=== PATIENT | male | born 1980 ===

== ENCOUNTER 2020-10-07 10:20 | Outpatient (REF) | payer OTHER, SELFPAY ==
[2020-10-07 13:47] LABS: MANUAL DIFF FLAG NO
[2020-10-07 13:52] LABS: Basophils Absolute Auto 0.1 X10*3/uL (0.0-0.2); Basophils Percent Auto 0.5 % (0-2); Eosinophils Absolute Auto 0.1 X10*3/uL (0.0-0.4); Eosinophils Percent Auto 1.3 % (0-4); Hematocrit 42.8 % (42-52); Hemoglobin 14.1 g/dl (14.0-18.0); Imm Gran Abs Auto 0.02 X10*3/uL (0.00-0.03); Imm Gran Pct Auto 0.2 % (0.0-0.4); Lymphocytes Absolute Auto 2.4 X10*3/uL (1.2-4.9); Lymphocytes Percent Auto 24.2 % (20-40); Mean Corpuscular HGB Conc 32.9 g/dl (31.0-36.0); Mean Corpuscular Hemoglobin 31.1 pg (27.0-33.0); Mean Corpuscular Volume 94.3 fL (80-98); Mean Platelet Volume 12.4 fL (9.4-12.4); Monocytes Absolute Auto 0.8 X10*3/uL (0.1-1.2); Monocytes Percent Auto 7.7 % (2-11); Neutrophils Absolute Auto 6.6 X10*3/uL (2.0-8.3); Neutrophils Percent Auto 66.1 % (45-73); Platelet Count 233 X10*3/uL (160-400); Red Blood Count 4.54 X10*6/uL (4.60-5.80)
[2020-10-07 14:01] LABS: Estimated Average Glucose 94 mg/dL; Hemoglobin A1c % 4.9 %
[2020-10-07 14:08] LABS: Glucose Urine UA NEG (NEG); Leukocyte Esterase Urine NEG (NEG); Nitrite Urine NEG (NEG); PH 6.5 (5.0-8.0); Specific Gravity - Urine 1.025 (1.005-1.025); Urine Blood TRACE (NEG); Urine Ketones NEG (NEG); Urine Protein NEG (NEG-TRACE)
[2020-10-07 14:15] LABS: Appearance Urine CLEAR; Color Urine YELLOW
[2020-10-07 14:19] LABS: Alanine Aminotransferase 27 U/L (0-40); Albumin Level 4.2 g/dL (3.5-5.0); Alkaline Phosphatase 77 U/L (39-117); Anion Gap 11 (12-20); Aspartate Amino Transferase 21 U/L (5-37); Bilirubin Total 0.6 mg/dL (0.0-1.0); Blood Urea Nitrogen 18 mg/dL (9-16); Calcium 8.8 mg/dL (8.4-10.2); Carbon Dioxide 29 mmol/L (22-29); Chloride 102 mmol/L (96-108); Cholesterol 263 mg/dL; Estimated Glomerular Filt Rate > 60; Glucose Random 88 mg/dL (60-115); HDL Cholesterol 33 mg/dL; LDL Cholesterol Calculated 206 mg/dl; Potassium 4.3 mmol/L (3.3-5.1); Sodium 138 mmol/L (135-145); Total Protein 7.2 g/dL (6.5-8.0); Triglycerides 124 mg/dL
[2020-10-07 14:39] LABS: Mucus Urine TRACE /LPF; RBC Urine 0-2 /HPF (0); Squamous Epithelial Cell Urine TRACE /LPF; WBC Urine 0-2 /HPF (0-4)
[2020-10-07 14:40] LABS: Free T4 (Free Thyroxine) 1.29 ng/dL (0.71-1.85); Thyroid Stimulating Hormone 0.69 uIU/mL (0.32-4.0)
[2020-10-07 14:53] LABS: Vitamin B12 427 pg/mL (200-900)
== END 2020-10-07 10:21 | disposition home or self-care (01) ==
LOC: HO.10HDL 10:20
PROVIDERS: Visit Provider Internal Medicine
DX: R73.01 Impaired fasting glucose (principal); E78.00 Pure hypercholesterolemia, unspecified
CPT/HCPCS: 36415; 80053; 80061; 81001; 82607; 82746; 83036; 84439; 84443; 85025

== ENCOUNTER 2020-12-15 10:53 | Outpatient (REF) | payer OTHER, SELFPAY ==
[2020-12-15 13:47] LABS: Alanine Aminotransferase 31 U/L (0-40); Albumin Level 4.3 g/dL (3.5-5.0); Alkaline Phosphatase 85 U/L (39-117); Anion Gap 11 (12-20); Aspartate Amino Transferase 24 U/L (5-37); Bilirubin Total 0.5 mg/dL (0.0-1.0); Blood Urea Nitrogen 16 mg/dL (9-16); Calcium 9.4 mg/dL (8.4-10.2); Carbon Dioxide 29 mmol/L (22-29); Chloride 103 mmol/L (96-108); Cholesterol 189 mg/dL; Estimated Glomerular Filt Rate > 60; Glucose Random 82 mg/dL (60-115); HDL Cholesterol 38 mg/dL; LDL Cholesterol Calculated 137 mg/dl; Potassium 4.7 mmol/L (3.3-5.1); Sodium 138 mmol/L (135-145); Total Protein 7.4 g/dL (6.5-8.0); Triglycerides 73 mg/dL
== END 2020-12-15 10:54 | disposition home or self-care (01) ==
LOC: HO.10HDL 10:53
PROVIDERS: Visit Provider Internal Medicine
DX: E78.00 Pure hypercholesterolemia, unspecified (principal)
CPT/HCPCS: 36415; 80053; 80061

== ENCOUNTER 2021-01-13 22:15 | Emergency (ER) | payer OTHER, SELFPAY ==
[2021-01-13 22:22] VITALS: BP 121/73; PULSE 91; RESP 18; TEMP 36.6; O2SAT 95; BMI 19.3
[2021-01-13 22:56] LABS: Glucose, Whole Blood 104 mg/dL (60-115)
[2021-01-13 23:12] LABS: Glucose Urine UA NEG (NEG); Leukocyte Esterase Urine NEG (NEG); Nitrite Urine NEG (NEG); Specific Gravity - Urine >= 1.030 (1.005-1.025); Urine Blood NEG (NEG); Urine Ketones NEG (NEG); Urine Protein 1+ MG/DL (NEG-TRACE)
[2021-01-13 23:14] LABS: Appearance Urine CLEAR; Color Urine DARK YELLOW
[2021-01-13 23:19] LABS: Bacteria Urine TRACE /LPF; Mucus Urine 2+ /LPF; Squamous Epithelial Cell Urine TRACE /LPF; WBC Urine 0-2 /HPF (0-4)
[2021-01-13 23:24] LABS: COVID-19 Test Negative (Negative)
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
[2021-01-14 00:04] LABS: Amphetamine Screen Urine Not Detected (Not Detect); Barbiturates, Urine Not Detected (Not Detect); Benzodiazepines Screen Urine Not Detected (Not Detect); Cannabinoid Screen Urine POSITIVE (Not Detect); Cocaine Screen Urine Not Detected (Not Detect); Opiate Screen Urine Not Detected (Not Detect); Phencyclidine Screen Urine Not Detected (Not Detect)
[2021-01-14 01:28] VITALS: BP 110/63; PULSE 66; RESP 16; TEMP 37.2; O2SAT 97
--- NOTE | 2021-01-14 04:46 | PC.NURSE ---
[facility] notified through smart-sheet, spoke with Deepa/confirmed receipt of referral, patient will be evaluated in the morning
--- NOTE | 2021-01-14 08:54 | PC.NURSE ---
PT /GIRLFRIEND CALLED DUE TO DCF BEING AT THE HOUSE, PT DOESNT WANT TO SPEAK TO HER
--- NOTE | 2021-01-14 09:41 | PC.NURSE ---
[facility] PT IS ASKING FOR MEDICATONS
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
== END 2021-01-14 13:17 | disposition home or self-care (01) ==
PROVIDERS: Physician Assistant; Emergency Provider Emergency Medicine; PCP Internal Medicine
DX: F41.1 Generalized anxiety disorder (principal); F43.0 Acute stress reaction; Z63.0 Problems in relationship with spouse or partner; Z20.822 Contact with and (suspected) exposure to COVID-19; Z79.899 Other long term (current) drug therapy
CPT/HCPCS: 36415; 80307; 81001; 82947; 87635; 99284

== ENCOUNTER 2023-03-09 10:30 | Emergency (ER) | payer OTHER, SELFPAY ==
[2023-03-09 10:37] VITALS: BP 126/76; PULSE 89; RESP 15; TEMP 36.7; O2SAT 98; BMI 18.1
[2023-03-09 11:03] LABS: MANUAL DIFF FLAG NO
[2023-03-09 11:05] LABS: Basophils Percent Auto 0.5 % (0-2); Eosinophils Absolute Auto 0.1 X10*3/uL (0.0-0.4); Eosinophils Percent Auto 1.2 % (0-4); Hematocrit 41.5 % (42.0-52.0); Hemoglobin 13.8 g/dl (14.0-18.0); Imm Gran Abs Auto 0.01 X10*3/uL (0.00-0.03); Imm Gran Pct Auto 0.1 % (0.0-0.4); Lymphocytes Percent Auto 26.3 % (20-40); Mean Corpuscular HGB Conc 33.3 g/dl (31.0-36.0); Mean Corpuscular Hemoglobin 31.2 pg (27.0-33.0); Mean Corpuscular Volume 93.7 fL (80.0-98.0); Mean Platelet Volume 10.5 fL (9.4-12.4); Monocytes Absolute Auto 0.5 X10*3/uL (0.1-1.2); Monocytes Percent Auto 7.1 % (2-11); Neutrophils Absolute Auto 4.9 x10*3/uL (2.0-8.3); Neutrophils Percent Auto 64.8 % (45-73); Platelet Count 220 X10*3/uL (160-400); Red Blood Count 4.43 X10*6/uL (4.60-5.80); Red Cell Distribution Width 13.5 % (11.0-16.0); White Blood Count 7.5 X10*3/uL (4.8-10.8)
[2023-03-09 11:06] LABS: Appearance Urine Clear; Color Urine Yellow; Glucose Urine UA Negative (Negative); Leukocyte Esterase Urine Small (1+) (Negative); Nitrite Urine Negative (Negative); PH 6.5 (5.0-9.0); UMIC TRIGGER UACC YES; Urine Blood Moderate (2+) (Negative); Urine Ketones Negative (Negative); Urine Protein 30 (1+) mg/dL (Neg-Trace)
[2023-03-09 11:08] LABS: Bacteria Urine None Seen (None Seen); Hyaline Casts Urine 0-2 /LPF (0-2); RBC Urine >20 /HPF (0-2); Squamous Epithelial Cell Urine 0-2 /HPF (0-2); UACC Culture Trigger YES; WBC Urine 21-50 /HPF (0-5)
[2023-03-09 11:19] LABS: Alanine Aminotransferase 27 U/L (0-40); Alkaline Phosphatase 87 U/L (39-117); Anion Gap 10 (12-20); Aspartate Amino Transferase 25 U/L (5-37); Bilirubin Total 0.4 mg/dL (0.0-1.0); Blood Urea Nitrogen 20 mg/dL (9-16); Calcium 9.5 mg/dL (8.4-10.2); Carbon Dioxide 30 mmol/L (22-29); Chloride 102 mmol/L (96-108); Creatinine Clr Calc Pharmacy 92.4; Estimated Glomerular Filt Rate > 60; Glucose Random 162 mg/dL (60-115); Sodium 138 mmol/L (135-145); Total Protein 7.4 g/dL (6.5-8.0)
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
== END 2023-03-09 12:57 | disposition home or self-care (01) ==
LOC: HO.ED 12:51
PROVIDERS: Emergency Provider Emergency Medicine; PCP Internal Medicine
DX: N39.0 Urinary tract infection, site not specified (principal); E78.00 Pure hypercholesterolemia, unspecified; F17.210 Nicotine dependence, cigarettes, uncomplicated
CPT/HCPCS: 36415; 80053; 81001; 85025; 87086; 99282; 99283

== ENCOUNTER 2023-03-16 09:38 | Emergency (ER) | payer OTHER, SELFPAY ==
--- NOTE | ~2023-03-16 | CT_ITS ---
EXAMINATION: CT ABDOMEN AND PELVIS WITH CONTRAST CLINICAL INFORMATION: Pain with hematuria COMPARISON: None available. TECHNIQUE: Multidetector volumetric images were obtained from the superior aspect of the liver through the pubic symphysis following administration 85 mL of Omnipaque 350 intravenous contrast. Sagittal and coronal reformatted images were obtained on the technologist's workstation. Oral contrast: No This CT examination was performed using dose optimization techniques as appropriate, variously including the following: *Automated exposure control *Adjustment of mA and/or kV according to patient size (this includes techniques or standardized protocols for targeted exams where dose is matched to indication/reason for exam; i.e. extremities or head) *Use of iterative reconstruction technique DLP: 341 mGy-cm FINDINGS: LUNG BASES: Respiratory motion artifact limits evaluation. No pneumothorax. Lack of intra-abdominal fat as well as streak artifact from spinal hardware limits evaluation. LIVER, GALLBLADDER, AND BILIARY TREE: The liver is normal in size, shape, and attenuation. No focal hepatic lesion or biliary ductal dilatation is present. The gallbladder is unremarkable with no evidence of radiopaque gallstones, gallbladder wall thickening, or obvious pericholecystic inflammatory changes. PANCREAS: Unremarkable. SPLEEN: Unremarkable. ADRENAL GLANDS: Unremarkable. KIDNEYS AND URETERS: The kidneys are normal in size, shape, and attenuation. No hydronephrosis, hydroureter, or calculi seen. No perinephric stranding. BLADDER: Unremarkable. GASTROINTESTINAL TRACT: The small and large bowel are unremarkable. The appendix is is not definitively visualized. No secondary signs of appendicitis. ABDOMINAL WALL: No significant hernia is appreciated. LYMPH NODES: Normal. VASCULAR: Unremarkable. PELVIC VISCERA: Prostate is enlarged measuring 5.4 cm. OSSEOUS STRUCTURES: Status post posterior spinal hardware spanning T11-L3. Grade 1 anterolisthesis of L5-S1 with bilateral L5 pars defects. Mild multilevel degenerative changes greatest at L5-S1. Sclerotic focus in the left femoral head nonspecific though statistically representing bone islands. CT/CT abdomen pelvis w IV con IMPRESSION: 1. Lack of intra-abdominal fat as well as streak artifact from spinal hardware limits evaluation. 2. No acute process of the abdomen or pelvis visualized. 3. Prostate is enlarged measuring 5.4 cm. 4. Grade 1 anterolisthesis of L5-S1 with bilateral L5 pars defects.
[2023-03-16 09:52] VITALS: BP 115/62; PULSE 70; RESP 19; TEMP 36.6; O2SAT 98; BMI 18.1
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
[2023-03-16 11:37] LABS: MANUAL DIFF FLAG NO
[2023-03-16 11:41] LABS: Basophils Percent Auto 0.4 % (0-2); Eosinophils Absolute Auto 0.1 X10*3/uL (0.0-0.4); Eosinophils Percent Auto 2.1 % (0-4); Hematocrit 39.7 % (42.0-52.0); Hemoglobin 13.3 g/dl (14.0-18.0); Imm Gran Abs Auto 0.01 X10*3/uL (0.00-0.03); Imm Gran Pct Auto 0.1 % (0.0-0.4); Lymphocytes Absolute Auto 2.3 X10*3/uL (1.2-4.9); Lymphocytes Percent Auto 33.6 % (20-40); Mean Corpuscular HGB Conc 33.5 g/dl (31.0-36.0); Mean Corpuscular Hemoglobin 31.2 pg (27.0-33.0); Mean Corpuscular Volume 93.2 fL (80.0-98.0); Mean Platelet Volume 10.6 fL (9.4-12.4); Monocytes Absolute Auto 0.5 X10*3/uL (0.1-1.2); Monocytes Percent Auto 7.6 % (2-11); Neutrophils Absolute Auto 3.8 x10*3/uL (2.0-8.3); Neutrophils Percent Auto 56.2 % (45-73); Platelet Count 218 X10*3/uL (160-400); Red Blood Count 4.26 X10*6/uL (4.60-5.80); Red Cell Distribution Width 13.5 % (11.0-16.0); White Blood Count 6.7 X10*3/uL (4.8-10.8)
[2023-03-16 11:53] LABS: Anion Gap 6 (12-20); Blood Urea Nitrogen 22 mg/dL (9-16); Calcium 9.2 mg/dL (8.4-10.2); Carbon Dioxide 31 mmol/L (22-29); Chloride 104 mmol/L (96-108); Creatinine Clr Calc Pharmacy 95.8; Estimated Glomerular Filt Rate > 60; Glucose Random 95 mg/dL (60-115); Potassium 4.4 mmol/L (3.3-5.1); Sodium 137 mmol/L (135-145)
[2023-03-16] MEDS: iohexoL 350 MG/ML 100 ML INFUS..BTL 85 ML IV (13:02)
[2023-03-16 14:44] LABS: Appearance Urine Clear; Color Urine Yellow; Glucose Urine UA Negative (Negative); Leukocyte Esterase Urine Negative (Negative); Nitrite Urine Negative (Negative); Urine Blood Negative (Negative); Urine Ketones Negative (Negative); Urine Protein Negative (Neg-Trace)
[2023-03-17 01:22] LABS: CT PCR NOT DETECTED (Not Detect.); NG PCR NOT DETECTED (Not Detect.)
== END 2023-03-16 15:26 | disposition home or self-care (01) ==
PROVIDERS: Registered Nurse Emergency; Emergency Provider Emergency Medicine; PCP Internal Medicine
DX: R31.9 Hematuria, unspecified (principal); N40.0 Benign prostatic hyperplasia without lower urinary tract symptoms; E78.00 Pure hypercholesterolemia, unspecified; F17.210 Nicotine dependence, cigarettes, uncomplicated; Z79.899 Other long term (current) drug therapy
CPT/HCPCS: 0353U; 36415; 74177; 80048; 81003; 85025; 99284; Q9967

== ENCOUNTER 2023-04-29 13:04 | Outpatient (AMB) | payer OTHER, SELFPAY ==
[2023-04-29 13:06] VITALS: BP 92/52; PULSE 88; O2SAT 96; BMI 18.4
--- NOTE | 2023-04-29 13:06 | A.OFFPC_ITS ---
Vital Signs 04/29/23 13:06 04/29/23 13:41 Height 5 ft 11 in Weight 132 lb 4.438 oz BMI 18.4 BP 92/52 L 110/60 Blood Pressure Location Lt brachial Lt brachial Position Sitting Sitting Pulse 88 Pulse Source Pulse Oximeter Temp Source Skin Pulse Oximetry (%) 96 Oxygen Delivery Method Room Air Intake Visit Reasons: Physical exam Intake Note: Patient is here today for a physical. Sound Cutter Required: No Allergies No Known Allergies [No Known Allergies*] Allergy (Verified 04/29/23 13:10) Medication List - Last Reconciled 04/29/23 by Jay Jay Watson MD [Boost High Protein instead As directed] albuterol sulfate 90 mcg/actuation (ProAir HFA) 2 puffs inhalation Q4-6H PRN atorvastatin 20 mg PO DAILY buprenorphine-naloxone 8-2 mg 1 film sublingual TID [cbd VAPE no THC ] [CRUTCHES As directed] olanzapine 20 mg PO DAILY Tobacco use date assessed: 04/29/23 Dental Screening Dental Screen Date: 04/29/23 Did you have a dental visit in the last 12 months?: No Did you have a dental problem in the last 6 months where you did not have access to dental care?: No Was dental information given to patient?: Patient has dentist HPI Physical exam HPI Details 43-year-old male smoker with a history o f schizophrenia GERD impaired glucose tolerance and constipation last seen in July 2022. Patient is here for physical exam. Review of the notes in March 10 was in the emergency room for painless hematuria diagnosed with UTI and advised to be referred to Urology. CT scan done showing enlarged prostate UA done though is negative for blood.. March 09 was in the emergency room also again for hematuria treated for urinary tract infection with cefuroxime 500 mg twice a day PFSH Medical History Carpal tunnel syndrome on both sides GERD (gastroesophageal reflux disease) Hypercholesterolemia Polysubstance abuse Schizophrenia Tobacco abuse Surgical History H/O hand surgery H/O left knee surgery H/O right wrist surgery History of hip surgery History of lumbar surgery Family History Father Colon cancer Mother Diabetes Paternal Grandfather Gallbladder cancer Paternal Aunt Colon cancer Gallbladder cancer Breast cancer Leukemia Paternal Aunt Cancer Social History Housing: Apartment Alcohol intake: never Patient Tobacco Use Status: Current everyday Tobacco user Tobacco use type: Cigarette Cigarettes Per Day: 2 e-Cigarette/Vaping Use: Never Used Second Hand Smoke Exposure: Yes Substance Use Type: Marijuana service: No Current occupational status: disabled Cognitive needs: No Hearing needs: No Vision needs: No Questionnaire PHQ-9 Over the last 2 weeks, how often have you been bothered by any of the following problems? 1. Little interest or pleasure in doing things: not at all 2. Feeling down, depressed, or hopeless: not at all 3. Trouble falling or staying asleep, or sleeping too much: not at all 4. Feeling tired or having little energy: not at all 5. Poor appetite or overeating: not at all 6. Feeling bad about yourself - or that you are a failure or have let yourself or your family down: not at all 7. Trouble concentrating on things, such as reading the newspaper or watching television: not at all 8. Moving or speaking so slowly that other people could have noticed. Or the opposite - being so fidgety or restless that you have been moving around a lot more than usual: not at all 9. Thoughts that you would be better off or of hurting yourself in some way: not at all Total score: 0 Depression Screening Interpretation: Negative 49140 - PHQ-9 Billing: Yes Source: Developed by Drs. Valente Garcia, Sienna Jin, Thanh Rae and colleagues, with an educational vince from [employer]. Thrive Questionnaire Date Thrive assessed: 11/19/21 AUDIT C Alcohol Use Questionnaire (AUDIT-C) 1. How often do you have a drink containing alcohol?: Never 3. How often do you have six or more drinks on one occasion?: Never Total Score: 0 Score Reviewed/Action Taken: No JAYDEN-7 AMB Questionnaire JAYDEN-7 Date JAYDEN - 7 assessed: 04/29/23 Feeling nervous, anxious, or on edge: 2 = More than half the days Not being able to stop or control worryin = Several days Worrying too much about different things: 1 = Several days Trouble relaxin = Not at all Being so restless that it is hard to sit still: 0 = Not at all Becoming easily annoyed or irritable: 0 = Not at all Feeling afraid as if something awful might happen: 0 = Not at all Total JAYDEN-7 score (0-4 normal; 5-9 mild; 10-14 moderate; 15-21 severe): 4 Source: Developed by Drs. Valente Garcia, Sienna Jin, Thanh Rae and colleagues, with an educational vince from [employer]. JAYDEN-7 Assessment Billing JAYDEN-7 Assessment Tool: JAYDEN-7 Assessment 69440 Review of Systems Const Denies poor appetite and Denies weakness Eyes Denies no additional complaints ENT Reports Normal hearing present, Denies dizziness, Denies nasal congestion, Denies tinnitus and Denies sore throat Card Denies chest pain, Denies syncope, Denies rapid heart rate and Denies dyspnea Resp Denies cough and Denies dyspnea GI Denies change in stool character, Reports constipation, Denies diarrhea, Denies nausea and Denies vomiting Denies dysuria and Denies urinary frequency Neuro Reports Normal hearing present, Denies confusion, Denies dizziness, Denies syncope and Denies weakness Psych Denies confusion Physical exam (Primary Care) Vital Signs: Last Vital Signs Pulse 88 04/29/23 13:06 BP 110/60 04/29/23 13:41 Pulse Ox 96 04/29/23 13:06 Oxygen Delivery Method Room Air 04/29/23 13:06 BMI result Body Mass Index 18.4 Tobacco/Smoking Status: Tobacco use Status Tobacco use date assessed 04/29/23 04/29/23 13:07 Patient Tobacco Use Status Current everyday Tobacco 04/29/23 13:07 Tobacco use type Cigarette 04/29/23 13:07 e-Cigarette/Vaping Use Never Used 04/29/23 13:07 PHQ-9: PHQ-9 Score PHQ-9: Total score 0 04/29/23 19:10 Depression Screening Interpretation: Negative Thrive Assessment: Date of Thrive Assessment Date Thrive assessed 11/19/21 04/29/23 13:07 Const General: No confusion Orientation/consciousness: No confusion HENMT Head: Yes normocephalic Ears: external ears normal and TM's normal bilaterally Face and sinus: Yes normal facial exam Mouth: moist mucous membranes Throat: Yes tonsils normal Eyes Other: L eye cannot go medial no pupillary reaction Conjunctivae: conjunctivae normal Pupils: Equal, round and reactive pupils present and Pupil accommodation reflex normal Direct Ophthalmoscopy: normal light reflex Neck Neck: No lymphadenopathy Thyroid: Thyroid normal Chest Chest palpation & inspection: normal inspection of the chest Resp Effort & Inspection: normal respiratory effort and no audible wheezes Auscultation: clear to auscultation bilaterally, no crackles, no wheezes and lung sounds not diminished Cardio Rate: regular rate Rhythm: regular rhythm Peripheral pulses: radial pulses present and dorsalis pedis present GI Palpation (GI): no masses Auscultation: normal bowel sounds and normoactive bowel sounds Rectal Exam - Male: Yes deferred Male General Exam: Yes normal external exam Back/Spine/Pelvis Other: incisional scar vertebral . L leg elevation 30 degrees , cannot dorsiflex,, Skin General skin exam: no rashes or lesions noted Rashes: no rashes Neuro General: No confusion Cranial nerves: Yes Equal, round and reactive pupils present and Yes Normal hearing present Cognition (Neuro): normal cognition Gait exam (Neuro): Normal gait present Motor exam (neuro): 5/5 motor strength present throughout Deep tendon reflexes (DTR's): Right brachioradialis reflex intensity grade: 2+, Left brachioradialis reflex intensity grade: 2+, Right patellar reflex intensity grade: 2+ and Left patellar reflex intensity grade: 2+ Extrem General: No edema Assessment and Plan Assessment & Plan (1) Annual physical exam: Code(s): Z00.00 - Encounter for general adult medical examination without abnormal findings (2) Idiopathic scoliosis of lumbosacral spine: Comment: [facility] x-ray 2019 T11 to lumbar Code(s): M41.27 - Other idiopathic scoliosis, lumbosacral region (3) Schizophrenia: Comment: [facility] (03/2022) Code(s): F20.9 - Schizophrenia, unspecified Qualifiers: Schizophrenia type: disorganized schizophrenia Qualified Code(s): F20.1 - Disorganized schizophrenia Plan: Patient is advised to continue follow-up with counseling and therapy olanzapine 20 mg once a day (4) Hypercholesterolemia: Code(s): E78.00 - Pure hypercholesterolemia, unspecified Plan: Avoid fried foods, chicken skin, eggs, butter margarine, pastries and meat. Be it pork or beef they have a lot of cholesterol LDL goal of less than 130 and triglyceride of less than 150 (5) Tobacco abuse: Code(s): Z72.0 - Tobacco use Plan: Patient strongly advised to stop smoking (6) GERD (gastroesophageal reflux disease): Code(s): K21.9 - Gastro-esophageal reflux disease without esophagitis Qualifiers: Esophagitis presence: without esophagitis Qualified Code(s): K21.9 - Gastro-esophageal reflux disease without esophagitis Plan: Avoid the foods that causes that usually spicy foods, tomato products, juices, coffee, soda and foods that your sensitive to. After eating do not lie down, allow 3-4 hours before in lie down. And keep the head of bed above 30 degrees to avoid the acid from going up. (7) Hematuria: Code(s): R31.9 - Hematuria, unspecified Plan: Discussed with the patient the need to evaluate this/referred to urology (8) BPH (benign prostatic hyperplasia): Code(s): N40.0 - Benign prostatic hyperplasia without lower urinary tract symptoms (9) Family history of colon cancer: Code(s): Z80.0 - Family history of malignant neoplasm of digestive organs (10) Anemia: Code(s): D64.9 - Anemia, unspecified Orders: Orders Complete Blood Count Auto Diff Today D64.9 - Anemia, unspecified Reticulocyte Count Today D64.9 - Anemia, unspecified Vitamin B12 and Folate Today D64.9 - Anemia, unspecified Prostate Specific Antigen Scr Today N40.0 - Benign prostatic hyperplasia without lower urinary tract symptoms Lipid Panel Today E78.00 - Pure hypercholesterolemia, unspecified Free T4 (Free Thyroxine) Today E78.00 - Pure hypercholesterolemia, unspecified Ferritin Today D64.9 - Anemia, unspecified IRON PROFILE Today D64.9 - Anemia, unspecified Thyroid Stimulating Hormone Today E78.00 - Pure hypercholesterolemia, unspecified Comprehensive Met. Panel Today E78.00 - Pure hypercholesterolemia, unspecified Urine Cytology Today R31.9 - Hematuria, unspecified Referrals Gastroenterology Referral Z80.0 - Family history of malignant neoplasm of digestive organs Urology Referral N40.0 - Benign prostatic hyperplasia without lower urinary tract symptoms Medications: Refilled [Boost High Protein instead] As directed 90 ea 11RF E46 - Unspecified protein- calorie malnutrition, F20.1 - Disorganized schizophrenia Coding Level of Care Code Est Pt Prev Care 40-64y(43016) Diagnoses Annual physical exam Z00.00 Idiopathic scoliosis of lumbosacral spine M41.27 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 Hypercholesterolemia E78.00 Tobacco abuse Z72.0 Gastroesophageal reflux disease without esophagitis K21.9 Esophagitis presence: without esophagitis Hematuria R31.9 BPH (benign prostatic hyperplasia) N40.0 Family history of colon cancer Z80.0 Anemia D64.9 Additional Codes JAYDEN-7 Assessment Billing - JAYDEN-7 Assessment Tool: JAYDEN-7 Assessment 67561 ([id number])
[2023-04-29 13:41] VITALS: BP 110/60
== END 2023-04-29 14:00 | disposition home or self-care (01) ==
PROVIDERS: Visit Provider Internal Medicine
DX: Z00.00 Encounter for general adult medical examination without abnormal findings (principal); F20.1 Disorganized schizophrenia; K21.9 Gastro-esophageal reflux disease without esophagitis; Z80.0 Family history of malignant neoplasm of digestive organs; M41.27 Other idiopathic scoliosis, lumbosacral region; E78.00 Pure hypercholesterolemia, unspecified; Z72.0 Tobacco use; R31.9 Hematuria, unspecified; N40.0 Benign prostatic hyperplasia without lower urinary tract symptoms; D64.9 Anemia, unspecified
CPT/HCPCS: 99396

== ENCOUNTER 2023-05-30 12:58 | Outpatient (REF) | payer OTHER, SELFPAY ==
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
== END 2023-05-30 12:59 | disposition home or self-care (01) ==
LOC: HO.XRAY 12:58
PROVIDERS: PCP Internal Medicine; Visit Provider Chiropractor
DX: M25.531 Pain in right wrist (principal); M54.2 Cervicalgia
CPT/HCPCS: 72040; 72070; 72100; 73110

== ENCOUNTER 2023-06-22 10:05 | Outpatient (AMB) | payer OTHER, SELFPAY ==
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
== END 2023-06-22 10:47 | disposition home or self-care (01) ==
PROVIDERS: PCP Internal Medicine; Visit Provider Nurse Practitioner Family
DX: R31.9 Hematuria, unspecified (principal); N39.43 Post-void dribbling; R31.0 Gross hematuria; F17.200 Nicotine dependence, unspecified, uncomplicated; Z13.9 Encounter for screening, unspecified
CPT/HCPCS: 99204

== ENCOUNTER 2023-06-22 10:05 | Outpatient (REF) | payer OTHER, SELFPAY ==
[2023-06-22 16:27] LABS: Urine Cytology See Pathology rpt
== END 2023-06-22 10:06 | disposition home or self-care (01) ==
LOC: HO.LNP 10:05
PROVIDERS: PCP Internal Medicine; Visit Provider Nurse Practitioner Family
DX: R31.0 Gross hematuria (principal); N39.43 Post-void dribbling; F17.210 Nicotine dependence, cigarettes, uncomplicated
CPT/HCPCS: 51798; 81003; 99202

== ENCOUNTER 2023-06-22 10:53 | Outpatient (REF) | payer OTHER, SELFPAY ==
[2023-06-22 13:10] LABS: Urine Cytology See Pathology rpt
[2023-06-22 13:35] LABS: Blood Urea Nitrogen 21 mg/dL (9-16); Estimated Glomerular Filt Rate > 60
== END 2023-06-22 10:54 | disposition home or self-care (01) ==
LOC: HO.10HDL 10:53
PROVIDERS: Visit Provider Nurse Practitioner Family
DX: R31.9 Hematuria, unspecified (principal)
CPT/HCPCS: 36415; 82565; 84520; 88112

== ENCOUNTER 2023-08-01 08:16 | Outpatient (REF) | payer OTHER, SELFPAY ==
--- NOTE | ~2023-08-01 | CT_ITS ---
EXAMINATION: CT ABDOMEN AND PELVIS WITHOUT AND WITH CONTRAST CLINICAL INFORMATION: Gross hematuria. COMPARISON: 03/16/2023 TECHNIQUE: Noncontrast CT of the abdomen and pelvis is performed followed by split bolus contrast-enhanced images using 85 mL Omnipaque 350 contrast.? Postcontrast imaging is performed during the combined nephrogram and excretion phase. Sagittal and coronal reformatted images were obtained on the technologist's workstation for both the precontrast and postcontrast phases. This CT examination was performed using dose optimization techniques as appropriate, variously including the following: *Automated exposure control *Adjustment of mA and/or kV according to patient size (this includes techniques or standardized protocols for targeted exams where dose is matched to indication/reason for exam; i.e. extremities or head) *Use of iterative reconstruction technique DLP: 436 mGy-cm FINDINGS: Lack of intra-abdominal fat as well as streak artifact from spinal hardware limits evaluation. LUNG BASES: Dependent changes. LIVER, GALLBLADDER, AND BILIARY TREE: The liver is normal in size and contour. No focal hepatic lesion or biliary ductal dilatation is present. The gallbladder is unremarkable with no evidence of radiopaque gallstones, gallbladder wall thickening, or obvious pericholecystic inflammatory changes. PANCREAS: No ductal dilatation. SPLEEN: Not enlarged. ADRENAL GLANDS: No adrenal mass. KIDNEYS AND URETERS: Streak artifact from spinal hardware limits evaluation. The kidneys are symmetric in size and enhancement. No renal or ureteral calculus. No perinephric fluid collection. Delayed images demonstrate intact renal function. Bilateral collecting systems and opacified portions of the ureters are nondilated and without obvious filling defects. BLADDER: Underdistended. There is right eccentric lateral and posterior bladder wall thickening. The bladder only partially fills with excreted contrast. GASTROINTESTINAL TRACT: Unopacified loops of small and large bowel are nonobstructed. ABDOMINAL WALL: No significant hernia is appreciated. LYMPH NODES: No bulky lymphadenopathy. VASCULAR: Normal caliber abdominal aorta. PELVIC VISCERA: Enlarged prostate gland. OSSEUS STRUCTURES: No destructive bone lesions. CT/CT urogram IMPRESSION: Right eccentric lateral and posterior bladder wall thickening. Correlation with cystoscopy is advised.
[2023-08-01] MEDS: iohexoL 350 MG/ML 100 ML INFUS..BTL 85 ML IV (09:06)
== END 2023-08-01 08:17 | disposition home or self-care (01) ==
LOC: HO.CT 08:16
PROVIDERS: PCP Internal Medicine; Visit Provider Nurse Practitioner Family
DX: R31.0 Gross hematuria (principal)
CPT/HCPCS: 74178; Q9967

== ENCOUNTER 2023-08-26 09:31 | Outpatient (AMB) | payer OTHER, SELFPAY ==
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
[2023-08-26 09:40] VITALS: BP 128/84; PULSE 85; BMI 18.6
== END 2023-08-26 10:40 | disposition home or self-care (01) ==
PROVIDERS: PCP Internal Medicine; Visit Provider Nurse Practitioner Family
DX: D64.9 Anemia, unspecified (principal); K59.01 Slow transit constipation; K21.9 Gastro-esophageal reflux disease without esophagitis; Z12.11 Encounter for screening for malignant neoplasm of colon
CPT/HCPCS: 99204

== ENCOUNTER → 2023-08-26 09:31 | Outpatient (BNVA) | payer OTHER, SELFPAY | PROVIDERS: PCP Internal Medicine; Visit Provider Nurse Practitioner Family | DX: Z12.11 Encounter for screening for malignant neoplasm of colon (principal); K59.01 Slow transit constipation; K21.9 Gastro-esophageal reflux disease without esophagitis; D64.9 Anemia, unspecified | CPT/HCPCS: 99202 ==

== ENCOUNTER 2023-09-26 08:13 | Outpatient (AMB) | payer OTHER, SELFPAY ==
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
== END 2023-09-26 09:26 | disposition home or self-care (01) ==
PROVIDERS: PCP Internal Medicine; Visit Provider Urology
DX: N39.43 Post-void dribbling (principal); R31.0 Gross hematuria; F17.200 Nicotine dependence, unspecified, uncomplicated; R82.89 Other abnormal findings on cytological and histological examination of urine; N32.89 Other specified disorders of bladder; N40.0 Benign prostatic hyperplasia without lower urinary tract symptoms; R32 Unspecified urinary incontinence; Z13.9 Encounter for screening, unspecified
CPT/HCPCS: 52000; 99214

== ENCOUNTER → 2023-09-26 08:13 | Outpatient (BNVA) | payer OTHER, SELFPAY | PROVIDERS: PCP Internal Medicine; Visit Provider Urology | DX: R31.0 Gross hematuria (principal); N32.89 Other specified disorders of bladder; N39.43 Post-void dribbling; R82.89 Other abnormal findings on cytological and histological examination of urine; F17.210 Nicotine dependence, cigarettes, uncomplicated | CPT/HCPCS: 52000; 81003; 99212 ==

== ENCOUNTER 2023-10-10 09:14 | Outpatient (REF) | payer OTHER, SELFPAY ==
[2023-10-10 09:30] LABS: MANUAL DIFF FLAG NO
[2023-10-10 10:17] LABS: Basophils Percent Auto 0.5 % (0-2); Eosinophils Absolute Auto 0.2 X10*3/uL (0.0-0.4); Eosinophils Percent Auto 2.1 % (0-4); Hematocrit 42.2 % (42.0-52.0); Imm Gran Abs Auto 0.02 X10*3/uL (0.00-0.03); Imm Gran Pct Auto 0.3 % (0.0-0.4); Lymphocytes Absolute Auto 2.9 X10*3/uL (1.2-4.9); Lymphocytes Percent Auto 35.8 % (20-40); Mean Corpuscular HGB Conc 33.2 g/dl (31.0-36.0); Mean Corpuscular Hemoglobin 31.1 pg (27.0-33.0); Mean Corpuscular Volume 93.8 fL (80.0-98.0); Mean Platelet Volume 11.4 fL (9.4-12.4); Monocytes Absolute Auto 0.7 X10*3/uL (0.1-1.2); Monocytes Percent Auto 9.1 % (2-11); Neutrophils Absolute Auto 4.2 x10*3/uL (2.0-8.3); Neutrophils Percent Auto 52.2 % (45-73); Platelet Count 240 X10*3/uL (160-400); Red Cell Distribution Width 14.1 % (11.0-16.0)
[2023-10-10 10:52] LABS: Anion Gap 11 (12-20); Blood Urea Nitrogen 21 mg/dL (9-16); Calcium 9.4 mg/dL (8.4-10.2); Carbon Dioxide 27 mmol/L (22-29); Chloride 104 mmol/L (96-108); Estimated Glomerular Filt Rate > 60; Glucose Random 97 mg/dL (60-115); Potassium 4.2 mmol/L (3.3-5.1); Sodium 138 mmol/L (135-145)
== END 2023-10-10 09:15 | disposition home or self-care (01) ==
LOC: HO.LAB 09:14
PROVIDERS: Visit Provider Urology
DX: Z01.818 Encounter for other preprocedural examination (principal); R31.0 Gross hematuria
CPT/HCPCS: 36415; 80048; 85025

== ENCOUNTER 2023-10-17 10:41 | Outpatient (AMB) | payer OTHER, SELFPAY ==
--- NOTE | 2023-10-17 10:44 | A.OFFPC_ITS ---
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 Last seen in April 2023. Review of the notes in September was seen by Urology for cystoscopy for the problem of gross hematuria CT urogram in July 2023 wall thickening right posterior lateral urine cytology atypical cells noted a 3 mm bladder tumor right lateral wall planned cystoscopy with to eat TURBT.. Patient also sees Gastroenterology and planned colonoscopy. requested for a letter for housing . [facility] Medical History Polysubstance abuse GERD (gastroesophageal reflux disease) Schizophrenia Hypercholesterolemia Carpal tunnel syndrome on both sides Tobacco abuse Surgical History History of lumbar surgery H/O hand surgery History of hip surgery H/O left knee surgery H/O right wrist surgery Family History Father Colon cancer Mother Diabetes Paternal Grandfather Gallbladder cancer Paternal Aunt Colon cancer Gallbladder cancer Breast cancer Leukemia Paternal Aunt Cancer Social History Housing: Apartment Alcohol intake: never Patient Tobacco Use Status: Current everyday Tobacco user Tobacco use type: Cigarette Cigarettes Per Day: 2 e-Cigarette/Vaping Use: Never Used Second Hand Smoke Exposure: Yes Substance Use Type: Marijuana service: No Current occupational status: disabled Cognitive needs: No Hearing needs: No Vision needs: No Questionnaire PHQ-9 Over the last 2 weeks, how often have you been bothered by any of the following problems? 1. Little interest or pleasure in doing things: not at all 2. Feeling down, depressed, or hopeless: not at all 3. Trouble falling or staying asleep, or sleeping too much: not at all 4. Feeling tired or having little energy: not at all 5. Poor appetite or overeating: not at all 6. Feeling bad about yourself - or that you are a failure or have let yourself or your family down: not at all 7. Trouble concentrating on things, such as reading the newspaper or watching television: not at all 8. Moving or speaking so slowly that other people could have noticed. Or the opposite - being so fidgety or restless that you have been moving around a lot more than usual: not at all 9. Thoughts that you would be better off or of hurting yourself in some way: not at all Total score: 0 Depression Screening Interpretation: Negative Depression Screening Done: Yes 85640 - PHQ-9 Billing: Yes Source: Developed by Drs. Valente Garcia, Sienna Jin, Thanh Rae and colleagues, with an educational vince from [employer]. Thrive Questionnaire Date Thrive assessed: 10/17/23 AUDIT C Alcohol Use Questionnaire (AUDIT-C) 1. How often do you have a drink containing alcohol?: Never 3. How often do you have six or more drinks on one occasion?: Never Total Score: 0 Score Reviewed/Action Taken: No JAYDEN-7 AMB Questionnaire JAYDEN-7 Date JAYDEN - 7 assessed: 10/17/23 Source: Developed by Drs. Valente Garcia, Sienna Jin, Thanh Rae and colleagues, with an educational vince from [employer]. Physical exam (Primary Care) Vital Signs: Last Vital Signs Pulse 91 10/17/23 10:45 BP 110/64 10/17/23 10:45 Pulse Ox 100 10/17/23 10:45 Oxygen Delivery Method Room Air 10/17/23 10:45 BMI result Body Mass Index 18.4 Tobacco/Smoking Status: Tobacco use Status Tobacco use date assessed 10/17/23 10/17/23 10:51 Patient Tobacco Use Status Current everyday Tobacco 10/17/23 10:44 Tobacco use type Cigarette 10/17/23 10:44 e-Cigarette/Vaping Use Never Used 10/17/23 10:44 PHQ-9: PHQ-9 Score PHQ-9: Total score 0 10/17/23 11:04 Depression Screening Interpretation: Negative Thrive Assessment: Date of Thrive Assessment Date Thrive assessed 10/17/23 10/17/23 10:51 Const General: alert; No acute distress Eyes Conjunctivae: conjunctivae normal Resp Auscultation: clear to auscultation bilaterally Cardio Rate: regular rate Rhythm: regular rhythm GI Inspection: Yes normal to inspection Extrem General: Yes normal to inspection and No edema Assessment and Plan Assessment & Plan (1) Bladder mass: Code(s): N32.89 - Other specified disorders of bladder Plan: Patient has a planned cystoscopy with TURBT under urology (2) Family history of colon cancer: Code(s): Z80.0 - Family history of malignant neoplasm of digestive organs Plan: Colonoscopy scheduled (3) Impaired fasting blood sugar: Code(s): R73.01 - Impaired fasting glucose Plan: Decrease the amount of carbohydrate intake, pasta, bread, rice and potatoes are all sugar and that is aside from all the sweet stuff, remember that fruits are good but they are Sweet also. (4) Schizophrenia: Comment: [facility] counselling (03/2022) Code(s): F20.9 - Schizophrenia, unspecified Qualifiers: Schizophrenia type: disorganized schizophrenia Qualified Code(s): F20.1 - Disorganized schizophrenia Plan: Continue for counseling and therapy (5) GERD (gastroesophageal reflux disease): Code(s): K21.9 - Gastro-esophageal reflux disease without esophagitis Qualifiers: Esophagitis presence: without esophagitis Qualified Code(s): K21.9 - Gastro-esophageal reflux disease without esophagitis Plan: Avoid the foods that causes that usually spicy foods, tomato products, juices, coffee, soda and foods that your sensitive to. After eating do not lie down, allow 3-4 hours before in lie down. And keep the head of bed above 30 degrees to avoid the acid from going up. (6) Hypercholesterolemia: Code(s): E78.00 - Pure hypercholesterolemia, unspecified Plan: Avoid fried foods, chicken skin, eggs, butter margarine, pastries and meat. Be it pork or beef they have a lot of cholesterol at some point will have to repeat the blood work again. (7) Tobacco abuse: Code(s): Z72.0 - Tobacco use Plan: Patient is strongly advised to stop smoking! 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
[2023-10-17 10:45] VITALS: BP 110/64; PULSE 91; O2SAT 100; BMI 18.4
== END 2023-10-17 11:23 | disposition home or self-care (01) ==
PROVIDERS: PCP Internal Medicine; Visit Provider Internal Medicine
DX: N32.89 Other specified disorders of bladder (principal); Z80.0 Family history of malignant neoplasm of digestive organs; R73.01 Impaired fasting glucose; F20.1 Disorganized schizophrenia; K21.9 Gastro-esophageal reflux disease without esophagitis; E78.00 Pure hypercholesterolemia, unspecified; Z72.0 Tobacco use
CPT/HCPCS: 99214

== ENCOUNTER 2023-10-18 08:30 | Day surgery (SDC) | payer OTHER, SELFPAY ==
[2023-10-14 13:34] VITALS: BMI 18.4
--- NOTE | 2023-10-17 10:45 | HO.ANESPROP2 ---
Documented by User: Katie Brown NP 10/17/23 10:46 HPI - Anesthesia Eval Consult details Narrative: 43yo M for TUR Bladder Tumor Suboxone daily PMFSH Active Problems Active Problems: All Active Problems (Updated 09/26/23 @ 09:14 by Zander Okeefe MD) Bladder mass (Acute) Preop testing (Acute) Abnormal urine cytology (Acute) Nicotine dependence (Acute) Gross hematuria (Acute) Urinary dribbling (Acute) Anemia (Acute) BPH (benign prostatic hyperplasia) (Acute) Hematuria (Acute) Polysubstance abuse (Acute) Underweight (Acute) Constipation (Acute) Family history of colon cancer (Acute) Annual physical exam (Acute) Idiopathic scoliosis of lumbosacral spine (Acute) Malnourished (Acute) Annual physical exam (Acute) Urinary incontinence (Acute) Impaired fasting blood sugar (Acute) GERD (gastroesophageal reflux disease) (Acute) Schizophrenia (Acute) Hypercholesterolemia (Acute) Carpal tunnel syndrome on both sides (Acute) Tobacco abuse (Acute) Past Medical History Medical History Asthma Polysubstance abuse GERD (gastroesophageal reflux disease) Schizophrenia Hypercholesterolemia Carpal tunnel syndrome on both sides Tobacco abuse Family History Family History Father Colon cancer Mother Diabetes Paternal Grandfather Gallbladder cancer Paternal Aunt Colon cancer Gallbladder cancer Breast cancer Leukemia Paternal Aunt Cancer Surgical History Surgical History History of surgery of head History of lumbar surgery H/O hand surgery History of hip surgery H/O left knee surgery H/O right wrist surgery Social History Social History Housing: Apartment Alcohol intake: never Patient Tobacco Use Status: Current everyday Tobacco user Tobacco use type: Cigarette Cigarettes Per Day: 2 e-Cigarette/Vaping Use: Never Used Second Hand Smoke Exposure: Yes Substance Use Type: Marijuana service: No Current occupational status: disabled Cognitive needs: No Hearing needs: No Vision needs: No Meds Allergies Allergy/AdvReac Type Severity Reaction Status Date / Time No Known Allergies Allergy Verified 11/09/23 16:29 [No Known Allergies*] Home Medications Medication Instructions Recorded Confirmed Last Taken Type albuterol sulfate 90 mcg/actuation 2 puff inhalation Q4-6H PRN 08/18/20 10/14/23 Unknown History aerosol inhaler (ProAir HFA) Shortness Of Breath Or Wheezing buprenorphine 8 mg-naloxone 2 mg 1 film sublingual TID 04/16/21 10/14/23 Unknown History sublingual film cbd VAPE no THC 04/29/23 09/26/23 Unknown History Exam Height,Weight and Vital Signs: Height 5 ft 11 in Weight 59.874 kg Pertinent Lab Results Pertinent Lab Results: Laboratory Tests 10/10/23 09:28 WBC 8.0 Hgb 14.0 Hct 42.2 Plt Count 240 Sodium 138 Potassium 4.2 Chloride 104 Carbon Dioxide 27 BUN 21 H Creatinine 0.86 Assessment and Plan Assessment Anesthesia Assessment: Chart Reviewed Documented by User: Antonio Lemon MD 11/16/23 11:12 PMFSH Past Medical History Medical History Asthma Polysubstance abuse GERD (gastroesophageal reflux disease) Schizophrenia Hypercholesterolemia Carpal tunnel syndrome on both sides Tobacco abuse Family History Family History Father Colon cancer Mother Diabetes Paternal Grandfather Gallbladder cancer Paternal Aunt Colon cancer Gallbladder cancer Breast cancer Leukemia Paternal Aunt Cancer Family history of problems with anesthesia: No Surgical History Surgical History History of surgery of head History of lumbar surgery H/O hand surgery History of hip surgery H/O left knee surgery H/O right wrist surgery History of Problems with Anesthesia: No Social History Social History Housing: Apartment Alcohol intake: never Patient Tobacco Use Status: Current everyday Tobacco user Tobacco use type: Cigarette Cigarettes Per Day: 2 e-Cigarette/Vaping Use: Never Used Second Hand Smoke Exposure: Yes Substance Use Type: Marijuana service: No Current occupational status: disabled Cognitive needs: No Hearing needs: No Vision needs: No Meds Allergies Allergy/AdvReac Type Severity Reaction Status Date / Time No Known Allergies Allergy Verified 11/09/23 16:29 [No Known Allergies*] Home Medications Medication Instructions Recorded Confirmed Last Taken Type albuterol sulfate 90 mcg/actuation 2 puff inhalation Q4-6H PRN 08/18/20 10/14/23 Unknown History aerosol inhaler (ProAir HFA) Shortness Of Breath Or Wheezing buprenorphine 8 mg-naloxone 2 mg 1 film sublingual TID 04/16/21 10/14/23 Unknown History sublingual film cbd VAPE no THC 04/29/23 09/26/23 Unknown History Exam Airway Mallampati Class: II TM Dist: >3cm Neck ROM: Full Heart: ok Lungs: ok Assessment and Plan Final Anesthetic Review Family History of Problems with Anesthesia: No History of Problems with Anesthesia: No NPO: Yes ASA Class: III Final Preanesthetic Review: No Changes in Pt Med Stat, Meds/Allgs Chart Reviewed, Consent Obtained/Reviewed and Anes Risks/Benef Reviewed Patient Risk: Intermediate Procedure Risk: Low Anesthetic Plan Anesthetic Plan: GA and Agree w/ Assess. and Plan Disposition: Standard PACU
[2023-10-18] VITALS (15 sets, daily range): BP systolic 100–134; BP diastolic 55–87; PULSE 48–81; RESP 14–18; TEMP 36.5–36.9; O2SAT 95–97; BMI 18.3
--- NOTE | 2023-10-18 09:18 | MHC.SHP ---
Pre-Procedural Eval Section A - 24 Hr Update-Section A only Date of Service: 10/18/23 The patient is an INPATIENT: No The patient has been examined within 24 hours of the surgical procedure. The History & Physical has been completed within 30 days and I have reviewed it.: Yes Section B - Complete if H&P > 30 days Chief Complaint: Other specified disorders of bladder Allergies: Allergies Allergy/AdvReac Type Severity Reaction Status Date / Time No Known Allergies Allergy Verified 10/18/23 08:49 [No Known Allergies*] Plan Diagnosis/Plan: Unchanged I have reviewed the history and physical and performed a pertinent physical examination on my patient. No changes have occurred unless specified. Bladder tumor. Cysto TURBT, random bladder biopsies. Time Spent With Patient Time: Total time managing care of this patient today ____ minutes.
[2023-10-18] MEDS: Lactated Ringers 1,000 ML 100 ML IVCONT (09:19)
--- NOTE | 2023-10-18 11:00 | P.OP_ITS ---
Operative Note Operative Note Date of Service: 10/18/23 Narrative: PREOP DIAGNOSIS: Bladder tumor right lateral wall POSTOP DIAGNOSIS: Bladder tumor right lateral wall PROCEDURE: CYSTOSCOPY TRANSURETHRAL RESECTION OF BLADDER TUMOR, FULGURATION, RANDOM BLADDER BIOPSIES Anesthesia: General Surgeon Dr. Silveira Indications Findings: 2-3 cm bladder tumor right lateral wall Details of procedure: The patient was brought into the operating room placed on the OR table in supine position. 2 g of Ancef IV. General anesthesia was administered. The patient was repositioned into lithotomy position, prepped and draped in the usual sterile fashion. Time-out was done per protocol. 2 urojet placed. The 22 Austrian cystoscope was passed transurethrally into the bladder. The bulbous urethra was within normal limits the prostatic urethra was nonobstructive. The bladder tumor was noted on the right lateral wall there were no other suspicious lesions seen. Using the flexible biopsy forceps random bladder biopsies were done at the posterior wall, left lateral wall, dome. The 26 Austrian resectoscope with the bipolar instruments was passed transurethrally into the bladder. The loop working element was used to provide hemostasis to the biopsied areas. Then using the loop working element, the tumor was resected, muscle was visualized without evidence of perforation, the loop was also used to fulgurate the base of the bladder tumor. Once there was good hemostasis the resectoscope was removed. 2 % urojet placed. A [address] catheter 5 cc balloon was passed without difficulty. The patient was brought out of anesthesia and taken to recovery in stable condition. Complications: None Drains: [address] catheter 10 mL placed in balloon
[2023-10-18] MEDS: Phenazopyridine HCL 200 MG TABLET PO (11:23)
[2023-10-18] MEDS: fentaNYL citrate/PF 100 MCG/2 ML VIAL 50 MCG IVPUSH (11:52)
[2023-10-18] MEDS: oxyCODONE HCl Immed Release 5 MG TABLET PO (11:52)
== END 2023-10-18 14:24 | disposition home or self-care (01) ==
PROVIDERS: PCP Internal Medicine; Visit Provider Urology
PROC: 0TBB8ZZ Excision of Bladder, Via Natural or Artificial Opening Endoscopic (ICD-10-PCS; CPT 52235; principal; 2023-10-18 10:20)
DX: C67.2 Malignant neoplasm of lateral wall of bladder (principal); N39.43 Post-void dribbling; R31.0 Gross hematuria; K21.9 Gastro-esophageal reflux disease without esophagitis; E78.00 Pure hypercholesterolemia, unspecified; F20.9 Schizophrenia, unspecified; F19.11 Other psychoactive substance abuse, in remission; F17.210 Nicotine dependence, cigarettes, uncomplicated; R82.89 Other abnormal findings on cytological and histological examination of urine; Z79.899 Other long term (current) drug therapy; Z87.828 Personal history of other (healed) physical injury and trauma
CPT/HCPCS: 52235; 88305; 88307; 88342; J0690; J1885; J2250; J2405; J2704; J3010

== ENCOUNTER → 2023-10-18 08:30 | Outpatient (BNV) | payer OTHER, SELFPAY | PROVIDERS: PCP Internal Medicine; Visit Provider Urology | DX: N32.89 Other specified disorders of bladder (principal) | CPT/HCPCS: 52235 ==

== ENCOUNTER 2023-10-19 04:52 | Emergency (ER) | payer OTHER, SELFPAY ==
[2023-10-19 04:56] VITALS: BP 137/105; PULSE 104; RESP 14; TEMP 36.6; O2SAT 98; BMI 18.1
--- NOTE | 2023-10-19 05:35 | ED.MALEGU ---
HPI - Male Genitourinary General Chief complaint: Urogenital-Male Stated complaint: unable to urinate Time Seen by Provider: 10/19/23 05:15 Source: patient Mode of arrival: ambulatory Limitations: no limitations History of Present Illness HPI Narrative: Patient is status post cystoscopy transurethral resection of bladder tumor fulguration and biopsies done on 10/18 at 11:00 patient is supposed to have folic acid about refused at that time patient urinating fine till 23:00 when he had last time urination which was normal woke up from the sleep as he could not urinate anymore bladder scan showed more than 380 cc of urine Related Data Home Medications Medication Instructions Recorded Confirmed albuterol sulfate 90 mcg/actuation 2 puff inhalation Q4-6H PRN 08/18/20 10/14/23 aerosol inhaler (ProAir HFA) Shortness Of Breath Or Wheezing buprenorphine 8 mg-naloxone 2 mg 1 film sublingual TID 04/16/21 10/14/23 sublingual film cbd VAPE no THC 04/29/23 09/26/23 Previous Rx's Medication Instructions Recorded CRUTCHES #2 ea 04/19/22 atorvastatin 20 mg tablet 20 mg PO DAILY #90 tabs 04/19/22 olanzapine 20 mg tablet 20 mg PO DAILY #90 tabs 07/14/22 bisacodyl 5 mg tablet,delayed 20 mg (4 x 5 mg) PO ONCE 1 day #4 08/26/23 release (Dulcolax (bisacodyl)) tabs docusate sodium 100 mg capsule 100 mg PO BEDTIME #90 caps 08/26/23 omeprazole 20 mg capsule,delayed 20 mg PO DAILY #30 caps 08/26/23 release polyethylene glycol 3350 17 238 g PO ONCE #238 grams 08/26/23 gram/dose oral powder (Miralax) Boost Plus #90 ea 09/15/23 tamsulosin 0.4 mg capsule 0.4 mg PO BEDTIME 90 days #90 caps 09/26/23 phenazopyridine 200 mg tablet 200 mg PO BID for bladder spasms 10/18/23 (Pyridium) #20 tabs Allergies Allergy/AdvReac Type Severity Reaction Status Date / Time No Known Allergies Allergy Verified 10/19/23 04:56 [No Known Allergies*] Review of Systems Review of Systems: Yes all other systems are reviewed and are negative PMFSH Past Medical History Medical History Asthma Polysubstance abuse GERD (gastroesophageal reflux disease) Schizophrenia Hypercholesterolemia Carpal tunnel syndrome on both sides Tobacco abuse Surgical History History of surgery of head History of lumbar surgery H/O hand surgery History of hip surgery H/O left knee surgery H/O right wrist surgery Family History Family History Father Colon cancer Mother Diabetes Paternal Grandfather Gallbladder cancer Paternal Aunt Colon cancer Gallbladder cancer Breast cancer Leukemia Paternal Aunt Cancer Social History Social History Housing: Apartment Alcohol intake: never Patient Tobacco Use Status: Current everyday Tobacco user Tobacco use type: Cigarette Cigarettes Per Day: 2 Smoked in Last 30 Days: No e-Cigarette/Vaping Use: Never Used Second Hand Smoke Exposure: Yes Use of substances other than those prescribed or required for medical reasons: Yes Substance Use Type: Marijuana Substance Use Frequency: Chronic Longstanding Advance Directives: No Advance Directives Information Provided: No service: No Current occupational status: disabled Cognitive needs: No Hearing needs: No Vision needs: No Physical Exam Vital Signs: Vital Signs: Last Vital Signs Temp 97.9 F 10/19/23 04:56 Pulse 104 H 10/19/23 04:56 Resp 14 10/19/23 04:56 BP 137/105 H 10/19/23 04:56 Pulse Ox 98 10/19/23 04:56 O2 Del Method Room Air 10/19/23 04:56 BMI result Body Mass Index 18.1 Appearance: Alert. Oriented X3. In moderate discomfort Neck: Normal inspection. Neck supple. CVS: Normal heart rate and rhythm. Pulses normal. Respiratory: No respiratory distress. Equal air entry bilateral, Abdomen: Soft and nontender. Bowel sounds are present, suprapubic discomfort and dullness, no CVA tenderness Skin: Skin warm and dry. Normal skin color. Normal skin turgor. Medical Decision Making Medical Decision Making MDM Narrative: Armendariz catheter was placed by RN patient felt much better plan to see urologist tomorrow Procedures Catheter Insertion (Urinary) Date of insertion: 10/19/23 Time of insertion: 05:40 Reason for placing: Yes Reason for placing indwelling catheter: Urinary obstruction Bladder scan/ultrasound used before catheterization: Yes Estimated amount of urine (mLs): 380 Topical anesthesia used: No Catheter type/location: Urethral Size (Kazakh): 16 Catheter balloon size (mL): 10 Catheter balloon amount: 10 Results: successfully catheterized-immediate flow Procedure performed: without complications Discharge Plan Discharge Clinical Impression: Acute urinary retention Patient Disposition: Home, Self-Care Instructions: Armendariz Catheter Placement and Care (ED) Additional Instructions: Armendariz catheter care as advised Follow-up with urologist as scheduled Prescriptions: No Action olanzapine 20 mg tablet 20 mg PO DAILY Qty: 90 1RF (DME) Boost Plus See Rx Instructions .Route .MEDSUPPLY Qty: 90 11RF Rx Instructions: As directed tamsulosin 0.4 mg capsule 0.4 mg PO BEDTIME 90 Days Qty: 90 2RF buprenorphine-naloxone 8-2 mg film 1 film sublingual TID Rx Instructions: Psychiatrist [facility] phenazopyridine [Pyridium] 200 mg tablet 200 mg PO BID Qty: 20 0RF Rx Instructions: take with food, will cause urine to be orange albuterol sulfate [ProAir HFA] 90 mcg/actuation HFA aerosol inhaler 2 puff inhalation Q4-6H PRN (Reason: Shortness Of Breath Or Wheezing) atorvastatin 20 mg tablet 20 mg PO DAILY Qty: 90 1RF (DME) CRUTCHES See Rx Instructions .Route .MEDSUPPLY Qty: 2 0RF Rx Instructions: As directed (DME) cbd VAPE no THC 0 .Route .MEDSUPPLY bisacodyl [Dulcolax (bisacodyl)] 5 mg tablet,delayed release (DR/EC) 20 mg PO ONCE 1 Days Qty: 4 0RF Rx Instructions: take 4 tabs at noon the day before your colonoscopy polyethylene glycol 3350 [Miralax] 17 gram/dose powder 238 g PO ONCE Qty: 238 0RF Rx Instructions: As directed by gastroenterology department at [facility] docusate sodium 100 mg capsule 100 mg PO BEDTIME Qty: 90 3RF omeprazole 20 mg capsule,delayed release(DR/EC) 20 mg PO DAILY Qty: 30 3RF Interventions: ED Discharge Assessment Last Done: 10/19/23 06:05 Discharge Date/Time: 10/19/23 06:06
== END 2023-10-19 06:06 | disposition home or self-care (01) ==
PROVIDERS: Emergency Provider Internal Medicine; PCP Internal Medicine
DX: R33.9 Retention of urine, unspecified (principal); N13.9 Obstructive and reflux uropathy, unspecified; Z98.890 Other specified postprocedural states
CPT/HCPCS: 51702; 99283; 99284

== ENCOUNTER 2023-10-20 16:27 | Emergency (ER) | payer OTHER, SELFPAY ==
--- NOTE | 2023-10-20 16:47 | ED.GENADULT ---
HPI - General Adult General Chief complaint: Urogenital-Male Stated complaint: recent surg, blood clot? needs catheter changed? Related Data Home Medications Medication Instructions Recorded Confirmed albuterol sulfate 90 mcg/actuation 2 puff inhalation Q4-6H PRN 08/18/20 10/14/23 aerosol inhaler (ProAir HFA) Shortness Of Breath Or Wheezing buprenorphine 8 mg-naloxone 2 mg 1 film sublingual TID 04/16/21 10/14/23 sublingual film cbd VAPE no THC 04/29/23 09/26/23 Previous Rx's Medication Instructions Recorded CRUTCHES #2 ea 04/19/22 atorvastatin 20 mg tablet 20 mg PO DAILY #90 tabs 04/19/22 olanzapine 20 mg tablet 20 mg PO DAILY #90 tabs 07/14/22 bisacodyl 5 mg tablet,delayed 20 mg (4 x 5 mg) PO ONCE 1 day #4 08/26/23 release (Dulcolax (bisacodyl)) tabs docusate sodium 100 mg capsule 100 mg PO BEDTIME #90 caps 08/26/23 omeprazole 20 mg capsule,delayed 20 mg PO DAILY #30 caps 08/26/23 release polyethylene glycol 3350 17 238 g PO ONCE #238 grams 08/26/23 gram/dose oral powder (Miralax) Boost Plus #90 ea 09/15/23 tamsulosin 0.4 mg capsule 0.4 mg PO BEDTIME 90 days #90 caps 09/26/23 phenazopyridine 200 mg tablet 200 mg PO BID for bladder spasms 10/18/23 (Pyridium) #20 tabs Allergies Allergy/AdvReac Type Severity Reaction Status Date / Time No Known Allergies Allergy Verified 10/19/23 04:56 [No Known Allergies*] [facility] Past Medical History Medical History Asthma Polysubstance abuse GERD (gastroesophageal reflux disease) Schizophrenia Hypercholesterolemia Carpal tunnel syndrome on both sides Tobacco abuse Surgical History History of surgery of head History of lumbar surgery H/O hand surgery History of hip surgery H/O left knee surgery H/O right wrist surgery Family History Family History Father Colon cancer Mother Diabetes Paternal Grandfather Gallbladder cancer Paternal Aunt Colon cancer Gallbladder cancer Breast cancer Leukemia Paternal Aunt Cancer Social History Social History Housing: Apartment Alcohol intake: never Patient Tobacco Use Status: Current everyday Tobacco user Tobacco use type: Cigarette Cigarettes Per Day: 2 e-Cigarette/Vaping Use: Never Used Second Hand Smoke Exposure: Yes Substance Use Type: Marijuana service: No Current occupational status: disabled Cognitive needs: No Hearing needs: No Vision needs: No Physical Exam ED Vital Signs: BMI result Body Mass Index 19.0 Course Course Course Narrative: This is a rapid medical exam: Additional HPI, ROS, PE not included below will be deferred to primary provider. Patient is a 43-year old male post cystoscopy transurethral resection of bladder tumor fulguration and biopsies done on 10/18. Patient seen in the ED on 10/19 for urinary retention and tidwell was placed. Patient states that he feels the bag is too small, that the urine is not able to come out fast enough, and has even been leaking around the tidwell. Area not able to be visualized in triage due to privacy concerns. Discharge Plan Discharge Clinical Impression: Diagnosis unknown Patient Disposition: Left W/O Completing Treatment Prescriptions: No Action olanzapine 20 mg tablet 20 mg PO DAILY Qty: 90 1RF (DME) Boost Plus See Rx Instructions .Route .MEDSUPPLY Qty: 90 11RF Rx Instructions: As directed tamsulosin 0.4 mg capsule 0.4 mg PO BEDTIME 90 Days Qty: 90 2RF buprenorphine-naloxone 8-2 mg film 1 film sublingual TID Rx Instructions: Psychiatrist [facility] phenazopyridine [Pyridium] 200 mg tablet 200 mg PO BID Qty: 20 0RF Rx Instructions: take with food, will cause urine to be orange albuterol sulfate [ProAir HFA] 90 mcg/actuation HFA aerosol inhaler 2 puff inhalation Q4-6H PRN (Reason: Shortness Of Breath Or Wheezing) atorvastatin 20 mg tablet 20 mg PO DAILY Qty: 90 1RF (DME) CRUTCHES See Rx Instructions .Route .MEDSUPPLY Qty: 2 0RF Rx Instructions: As directed (DME) cbd VAPE no THC 0 .Route .MEDSUPPLY bisacodyl [Dulcolax (bisacodyl)] 5 mg tablet,delayed release (DR/EC) 20 mg PO ONCE 1 Days Qty: 4 0RF Rx Instructions: take 4 tabs at noon the day before your colonoscopy polyethylene glycol 3350 [Miralax] 17 gram/dose powder 238 g PO ONCE Qty: 238 0RF Rx Instructions: As directed by gastroenterology department at [facility] docusate sodium 100 mg capsule 100 mg PO BEDTIME Qty: 90 3RF omeprazole 20 mg capsule,delayed release(DR/EC) 20 mg PO DAILY Qty: 30 3RF Discharge Date/Time: 10/20/23 19:18
[2023-10-20 16:48] VITALS: BP 133/84; PULSE 89; RESP 18; TEMP 36.9; O2SAT 97; BMI 19.0
== END 2023-10-20 19:18 | disposition left against medical advice (07) ==
PROVIDERS: Emergency Provider Emergency Medicine; PCP Internal Medicine
DX: R33.9 Retention of urine, unspecified (principal); Z96.0 Presence of urogenital implants; Z98.890 Other specified postprocedural states
CPT/HCPCS: 99281

== ENCOUNTER → 2023-10-21 09:27 | Outpatient (BNVA) | payer OTHER, SELFPAY | PROVIDERS: PCP Internal Medicine; Visit Provider Urology | DX: C67.9 Malignant neoplasm of bladder, unspecified (principal); N32.89 Other specified disorders of bladder | CPT/HCPCS: 51700; 51798 ==

== ENCOUNTER 2023-11-09 15:47 | Outpatient (AMB) | payer OTHER, SELFPAY ==
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
== END 2023-11-09 16:39 | disposition home or self-care (01) ==
PROVIDERS: PCP Internal Medicine; Visit Provider Urology
DX: F17.200 Nicotine dependence, unspecified, uncomplicated (principal); C67.9 Malignant neoplasm of bladder, unspecified
CPT/HCPCS: 99214

== ENCOUNTER → 2023-11-09 15:47 | Outpatient (BNVA) | payer OTHER, SELFPAY | PROVIDERS: PCP Internal Medicine; Visit Provider Urology | DX: R30.0 Dysuria (principal) | CPT/HCPCS: 81003; 99212 ==

== ENCOUNTER 2023-11-21 10:17 | Outpatient (REF) | payer OTHER, SELFPAY ==
[2023-11-21 10:43] LABS: MANUAL DIFF FLAG NO
[2023-11-21 11:29] LABS: Basophils Percent Auto 0.4 % (0-2); Eosinophils Absolute Auto 0.1 X10*3/uL (0.0-0.4); Eosinophils Percent Auto 1.4 % (0-4); Hematocrit 45.2 % (42.0-52.0); Hemoglobin 15.3 g/dl (14.0-18.0); Imm Gran Abs Auto 0.01 X10*3/uL (0.00-0.03); Imm Gran Pct Auto 0.1 % (0.0-0.4); Immature Retic Fraction 6.2 % (2.3-13.4); Lymphocytes Percent Auto 25.2 % (20-40); Mean Corpuscular HGB Conc 33.8 g/dl (31.0-36.0); Mean Corpuscular Hemoglobin 31.5 pg (27.0-33.0); Mean Platelet Volume 11.3 fL (9.4-12.4); Monocytes Absolute Auto 0.6 X10*3/uL (0.1-1.2); Monocytes Percent Auto 7.9 % (2-11); Neutrophils Absolute Auto 5.2 x10*3/uL (2.0-8.3); Platelet Count 235 X10*3/uL (160-400); Red Blood Count 4.86 X10*6/uL (4.60-5.80); Red Cell Distribution Width 14.1 % (11.0-16.0); Retic HGB Equivalent 34.9 pg (30.0-35.0); Reticulocyte Percent 0.9 % (0.5-1.8); Reticulocytes Absolute 0.044 X10*6/uL (0.026-0.095)
[2023-11-21 11:31] LABS: Urine Cytology See Pathology rpt
[2023-11-21 12:12] LABS: Alanine Aminotransferase 45 U/L (0-40); Albumin Level 4.4 g/dL (3.5-5.0); Alkaline Phosphatase 91 U/L (39-117); Anion Gap 12 (12-20); Aspartate Amino Transferase 36 U/L (5-37); Bilirubin Total 0.6 mg/dL (0.0-1.0); Blood Urea Nitrogen 25 mg/dL (9-16); Calcium 9.8 mg/dL (8.4-10.2); Carbon Dioxide 28 mmol/L (22-29); Chloride 104 mmol/L (96-108); Cholesterol 224 mg/dL (<200); Estimated Glomerular Filt Rate > 60; Glucose Random 93 mg/dL (60-115); HDL Cholesterol 46 mg/dL (>40); Iron 118 mcg/dL (45-160); LDL Cholesterol Calculated 160 mg/dL (<100); Percent Iron Saturation 43 % (15-50); Potassium 4.2 mmol/L (3.3-5.1); Sodium 140 mmol/L (135-145); Total Iron Binding Capacity 277 mcg/dL (228-428); Total Protein 8.2 g/dL (6.5-8.0); Triglycerides 93 mg/dL (<150); Unsaturated Iron Binding 159 ug/dL
[2023-11-21 12:18] LABS: Ferritin 153 ng/mL (20-250); Free T4 (Free Thyroxine) 1.25 ng/dL (0.71-1.85); Thyroid Stimulating Hormone 0.42 uIU/mL (0.32-4.0)
[2023-11-21 12:30] LABS: Folate 11.8 ng/mL (> or = 4.0); Vitamin B12 679 pg/mL (200-900)
== END 2023-11-21 10:18 | disposition home or self-care (01) ==
LOC: HO.LAB 10:17
PROVIDERS: PCP Internal Medicine; Visit Provider Urology
DX: C67.9 Malignant neoplasm of bladder, unspecified (principal); D64.9 Anemia, unspecified; E78.00 Pure hypercholesterolemia, unspecified; N40.0 Benign prostatic hyperplasia without lower urinary tract symptoms; R79.89 Other specified abnormal findings of blood chemistry; Z12.5 Encounter for screening for malignant neoplasm of prostate
CPT/HCPCS: 36415; 80053; 80061; 82607; 82728; 82746; 83540; 84153; 84439; 84443; 85025; 85045; 88112

== ENCOUNTER 2023-11-28 15:51 | Outpatient (AMB) | payer OTHER, SELFPAY ==
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
== END 2023-11-28 16:38 | disposition home or self-care (01) ==
PROVIDERS: PCP Internal Medicine; Visit Provider Urology
DX: F17.200 Nicotine dependence, unspecified, uncomplicated (principal); C67.9 Malignant neoplasm of bladder, unspecified
CPT/HCPCS: 99213

== ENCOUNTER → 2023-11-28 15:51 | Outpatient (BNVA) | payer OTHER, SELFPAY | PROVIDERS: PCP Internal Medicine; Visit Provider Urology | DX: C67.9 Malignant neoplasm of bladder, unspecified (principal); F17.210 Nicotine dependence, cigarettes, uncomplicated | CPT/HCPCS: 99212 ==

== ENCOUNTER 2024-01-09 06:42 | Day surgery (SDC) | payer OTHER, SELFPAY ==
--- NOTE | 2024-01-06 12:33 | HO.ANESPROP2 ---
Documented by User: Katie Brown NP 01/06/24 12:34 HPI - Anesthesia Eval Consult details Narrative: 43yo M for Upper Endoscopy and Colonoscopy Suboxone daily s/p TURBT 09/2023 with GA-ETT 7 PMFSH Active Problems Active Problems: All Active Problems LFT elevation (Acute) Urinary bladder cancer (Acute) Bladder mass (Acute) Preop testing (Acute) Abnormal urine cytology (Acute) Nicotine dependence (Acute) Gross hematuria (Acute) Urinary dribbling (Acute) Anemia (Acute) BPH (benign prostatic hyperplasia) (Acute) Hematuria (Acute) Underweight (Acute) Constipation (Acute) Family history of colon cancer (Acute) Annual physical exam (Acute) Idiopathic scoliosis of lumbosacral spine (Acute) Malnourished (Acute) Annual physical exam (Acute) Urinary incontinence (Acute) Impaired fasting blood sugar (Acute) Polysubstance abuse (Acute) GERD (gastroesophageal reflux disease) (Acute) Schizophrenia (Acute) Hypercholesterolemia (Acute) Carpal tunnel syndrome on both sides (Acute) Tobacco abuse (Acute) Past Medical History Medical History Asthma Polysubstance abuse GERD (gastroesophageal reflux disease) Schizophrenia Hypercholesterolemia Carpal tunnel syndrome on both sides Tobacco abuse Family History Family History Father Colon cancer Mother Diabetes Paternal Grandfather Gallbladder cancer Paternal Aunt Colon cancer Gallbladder cancer Breast cancer Leukemia Paternal Aunt Cancer Family history of problems with anesthesia: No Surgical History Surgical History Hx of esophagogastroduodenoscopy Hx of colonoscopy History of surgery of head History of lumbar surgery H/O hand surgery History of hip surgery H/O left knee surgery H/O right wrist surgery History of Problems with Anesthesia: No Social History Social History Housing: Apartment Alcohol intake: never Patient Tobacco Use Status: Current everyday Tobacco user Tobacco use type: Cigarette Cigarettes Per Day: 2 e-Cigarette/Vaping Use: Never Used Second Hand Smoke Exposure: Yes Substance Use Type: Marijuana Substance Use Type Other:: opiates clean for 12 year per pt Substance Use Frequency: Chronic Longstanding Are you DNR?: No Advance Directives: No Advance Directives Information Provided: Yes Nutrition Risks: No Nutritional Risk service: No Current occupational status: disabled Cognitive needs: No Hearing needs: No Vision needs: No Meds Allergies Allergy/AdvReac Type Severity Reaction Status Date / Time No Known Allergies Allergy Verified 11/28/23 16:03 [No Known Allergies*] Home Medications ?Medication ?Instructions ?Recorded ?Confirmed ?Last Taken ?Type albuterol sulfate 90 mcg/actuation 2 puff inhalation Q4-6H PRN 08/18/20 10/14/23 Unknown History aerosol inhaler (ProAir HFA) Shortness Of Breath Or Wheezing buprenorphine 8 mg-naloxone 2 mg 1 film sublingual TID 04/16/21 10/14/23 Unknown History sublingual film cbd VAPE no THC 04/29/23 09/26/23 Unknown History Assessment and Plan Assessment Anesthesia Assessment: Chart Reviewed Final Anesthetic Review Family History of Problems with Anesthesia: No History of Problems with Anesthesia: No Documented by User: Corky Freitas MD 01/09/24 07:55 PMFSH Past Medical History Medical History Asthma Polysubstance abuse GERD (gastroesophageal reflux disease) Schizophrenia Hypercholesterolemia Carpal tunnel syndrome on both sides Tobacco abuse Family History Family History Father Colon cancer Mother Diabetes Paternal Grandfather Gallbladder cancer Paternal Aunt Colon cancer Gallbladder cancer Breast cancer Leukemia Paternal Aunt Cancer Surgical History Surgical History Hx of esophagogastroduodenoscopy Hx of colonoscopy History of surgery of head History of lumbar surgery H/O hand surgery History of hip surgery H/O left knee surgery H/O right wrist surgery Social History Social History Housing: Apartment Alcohol intake: never Patient Tobacco Use Status: Current everyday Tobacco user Tobacco use type: Cigarette Cigarettes Per Day: 2 e-Cigarette/Vaping Use: Never Used Second Hand Smoke Exposure: Yes Substance Use Type: Marijuana Substance Use Type Other:: opiates clean for 12 year per pt Substance Use Frequency: Chronic Longstanding Are you DNR?: No Advance Directives: No Advance Directives Information Provided: Yes Nutrition Risks: No Nutritional Risk service: No Current occupational status: disabled Cognitive needs: No Hearing needs: No Vision needs: No Meds Allergies Allergy/AdvReac Type Severity Reaction Status Date / Time No Known Allergies Allergy Verified 11/28/23 16:03 [No Known Allergies*] Home Medications ?Medication ?Instructions ?Recorded ?Confirmed ?Last Taken ?Type albuterol sulfate 90 mcg/actuation 2 puff inhalation Q4-6H PRN 08/18/20 10/14/23 Unknown History aerosol inhaler (ProAir HFA) Shortness Of Breath Or Wheezing buprenorphine 8 mg-naloxone 2 mg 1 film sublingual TID 04/16/21 10/14/23 Unknown History sublingual film cbd VAPE no THC 04/29/23 09/26/23 Unknown History Exam Airway Mallampati Class: II TM Dist: >3cm Neck ROM: Full Loose/Missing/Broken Teeth: No Heart: rr Lungs: cta Assessment and Plan Assessment Anesthesia Assessment: Anesthesia Plan Discussed Final Anesthetic Review NPO: Yes ASA Class: II Final Preanesthetic Review: No Changes in Pt Med Stat, Meds/Allgs Chart Reviewed, Consent Obtained/Reviewed and Anes Risks/Benef Reviewed Patient Risk: Intermediate Procedure Risk: Intermediate Anesthetic Plan Anesthetic Plan: GA and MAC: Disposition: Standard PACU
--- NOTE | 2024-01-09 06:00 | P.HPSUR_ITS ---
Pre-Procedural Eval Section A - 24 Hr Update-Section A only Date of Service: 01/09/24 Section B - Complete if H&P > 30 days Chief Complaint: weight loss, poor appetite Relevant Family History (Specify if Yes): Yes Relevant Social History: Tobacco Use Present Medications: see Short Stay Collaborative assessment Medical History: Significant History ( Polysubstance abuse GERD (gastroesophageal reflux disease) Schizophrenia Hypercholesterolemia Carpal tunnel syndrome on both sides Tobacco abuse) History of Previous Operations: Relevant previous surgery/procedure and date(s) (History of lumbar surgery H/O hand surgery History of hip surgery H/O left knee surgery H/O right wrist surgery) Allergies: Allergies Allergy/AdvReac Type Severity Reaction Status Date / Time No Known Allergies Allergy Verified 11/28/23 16:03 [No Known Allergies*] Surgical History Review of Systems Sugical H&P ROS: Negative: Constitution, Cardiovascular, Respiratory, Neurological, Psychiatric, Hem-Onc, Allergic/Immunologic, Gastrointestinal, Genitourinary, Musculoskeletal, Integumentary, Endocrine and Eyes/Ears/Nose/Throat Exam Surgical H&P Exam: Normal: HEENT, Normal: Heart, Normal: Lungs, Normal: Extremities, Normal: Abdomen, Normal: Skin and Normal: Neurological Plan Diagnosis/Plan: Unchanged I have reviewed the history and physical and performed a pertinent physical examination on my patient. No changes have occurred unless specified. EGD and colo for Ix of weight loss, and poor appetite Time Spent With Patient Time: Total time managing care of this patient today ____ minutes.
[2024-01-09 07:21] VITALS: BP 91/54; PULSE 79; RESP 20; TEMP 36.8; O2SAT 97; BMI 17.6
[2024-01-09] MEDS: Lactated Ringers 1,000 ML 100 ML IVCONT (07:48)
--- NOTE | 2024-01-09 08:27 | HO.OPN-COLON ---
Colonoscopy Operative Note Operative Note Date of Service: 01/09/24 Narrative: Operative Information Procedure Description: EGD, Colonoscopy Indication: weight loss and poor appetite Anesthesia: MAC FLEXIBLE TRANSORAL UPPER GASTROINTESTINAL ENDOSCOPY AND COLONOSCOPY PROCEDURE NOTE UPPER ENDOSCOPY Consent: Indications for the procedure and potential complications of bleeding, perforation, reaction to medications and missed diagnosis were discussed with the patient and informed consent was obtained. Instrument: Olympus GIF H 190 J mid size upper endoscope Monitoring: Vital signs and clinical assessment, continuous EKG monitoring, Pulse oximetry, Carbon Dioxide monitoring and blood pressure monitoring were done throughout the procedure. Procedure: The patient was placed in the left lateral decubitis position and pre-procedure medications were administered and a bite block was placed. The endoscope was inserted into the mouth and advanced under direct vision to the third part of duodenum. A careful inspection was made as the upper endoscope was withdrawn including a retroflexed examination of the proximal stomach; Findings and interventions are described below. Findings: Larynx:normal Esophagus: GE junction at 40 cm, diaphragm hiatus at 40 cm, mild inflammation at GEJ--bx taken as well as from distal esophagus Stomach: mild erythema. Biopsies were obtained. Grade 2 flap valve on retroflexed examination of the cardia. Duodenum: Normal bulb and descending duodenum, bx taken Intervention: Biopsies as noted above, COLONOSCOPY Instrument: Olympus variable stiffness pediatric scope 190L Colonoscopy Monitoring: Vital signs and clinical assessment, continuous EKG monitoring, Pulse oximetry, Carbon Dioxide monitoring and blood pressure monitoring were done throughout the procedure. Colon withdrawal time was 8 minutes. Procedure: The patient was placed in the left lateral decubitis position and pre-procedure medications were administered. After a digital rectal examination of the ano-rectum, the video colonoscope was inserted into the rectum and advanced through the colon to the cecum/TI. The colonoscope was slowly withdrawn in a retrograde panoramic fashion and the colon mucosa was carefully examined including a retroflexed view of the rectum. Findings and interventions are described below. Procedure Difficulty:moderate Findings: Terminal Ileum-normal Cecum:normal Ascending Colon: few diverticula seen Transverse Colon -normal Descending Colon:normal Sigmoid Colon: mild diverticulosis Rectum: Retroflexion with small internal hemorrhoids, grade I Anorectum - normal Colon preparation: [place] Bowel Preparation Scale Right colon; 2 Transverse colon: 2 Left colon; 2 (0 = Unprepared colon segment with mucosa not seen due to solid stool that cannot be cleared. 1 = Portion of mucosa of the colon segment seen, but other areas of the colon segment not well seen due to staining, residual stool and/or opaque liquid. 2 = Minor amount of residual staining, small fragments of stool and/or opaque liquid, but mucosa of colon segment seen well. 3 = Entire mucosa of colon segment seen well with no residual staining, small fragments of stool or opaque liquid) Impression and Post Procedure Diagnosis: Endoscopy Findings: midl gastritis Colonoscopy Findings: diverticulosis internal hemorrhoids Plan: Await Pathology results Repeat Colonoscopy in 5 years due to FH of CRC or earlier if clinically indicated High fiber diet leaflet avoid straining at stool, epsom salts and sitz bath, anusol supps or cream Above findings were reviewed with the patient and relevant handouts were provided if indicated.
[2024-01-09 09:02] VITALS: BP 93/62; PULSE 73; RESP 18; TEMP 36.4; O2SAT 98
[2024-01-09 09:17] VITALS: BP 100/66; PULSE 95; RESP 16; O2SAT 98
[2024-01-09 09:29] VITALS: BP 93/59; PULSE 78; RESP 16; TEMP 36.4; O2SAT 98
== END 2024-01-09 09:42 | disposition home or self-care (01) ==
PROVIDERS: PCP Internal Medicine; Visit Provider Internal Medicine Gastroenterology
PROC: (CPT 45380; principal; 2024-01-09 08:30)
DX: Z12.11 Encounter for screening for malignant neoplasm of colon (principal); K57.30 Diverticulosis of large intestine without perforation or abscess without bleeding; K64.0 First degree hemorrhoids; K59.01 Slow transit constipation; R63.4 Abnormal weight loss; D64.9 Anemia, unspecified; K21.00 Gastro-esophageal reflux disease with esophagitis, without bleeding; K29.70 Gastritis, unspecified, without bleeding; Z80.0 Family history of malignant neoplasm of digestive organs
CPT/HCPCS: 45380; 43239; 88305; 88313; 88342; J2704

== ENCOUNTER → 2024-01-09 06:42 | Outpatient (BNV) | payer OTHER, SELFPAY | PROVIDERS: PCP Internal Medicine; Visit Provider Internal Medicine Gastroenterology | DX: R63.4 Abnormal weight loss (principal); R63.0 Anorexia; K29.70 Gastritis, unspecified, without bleeding; K57.90 Diverticulosis of intestine, part unspecified, without perforation or abscess without bleeding; K64.8 Other hemorrhoids | CPT/HCPCS: 43239; 45378 ==

== ENCOUNTER 2024-01-23 09:53 | Outpatient (AMB) | payer OTHER, SELFPAY ==
--- NOTE | 2024-01-23 09:56 | MHC.OFFVIS ---
Vital Signs 01/23/24 09:59 Height 5 ft 11 in Weight 130 lb 1.164 oz BMI 18.1 BP 94/56 L Blood Pressure Location Lt brachial Position Sitting Pulse 70 Pulse Source Pulse Oximeter Pulse Oximetry (%) 97 Oxygen Delivery Method Room Air Intake Visit Reasons: s/P Double Intake Note: Lukas presents in office today for a FUV (post op colo) CC; Pt reports that they have not had any issues or concerns regarding their procedure. Serologist Required: No Allergies No Known Allergies [No Known Allergies*] Allergy (Verified 01/23/24 09:59) [facility] s/P Double: Details: LAST VISIT: Anemia Constipation GERD (gastroesophageal reflux disease) Screen for colon cancer Plan Patient denies any cardiac or respiratory symptoms.? Denies any issues with anesthesia in the past.? Denies any history of sleep apnea.? No history infectious diseases in the past or present.? Not on any anticoagulation therapy.? Family history of CRC. As mentioned above in HPI, patient lost weight in the past your cell. Patient is trying to drink protein shakes to help him gain weight. Patient reports occasional constipation, will send him script for Colace. Patient was also encouraged to increase fluid intake and activity to promote better bowel motility. Patient reports occasional dyspepsia, without dysphagia or odynophagia. Patient will be started on omeprazole. Will send him for upper endoscopy to rule out gastritis, duodenitis, esophagitis, gastric or peptic ulcer, Saucedo's. Patient denies melena, hematochezia or ribbon like stools.? Discussed at length the pre-procedure,? prep, diet & medications as well as what to expect prior, during and after the procedure.?? Stressed the importance of good bowel prep. ?Recommended the use of Vaseline or Calmoseptine OTC & baby wipes with bowel movements to promote comfort.? ?Patient verbalizes understanding and agrees to plan of care.? He was given the opportunity to ask questions and all questions answered.? We will see him after the procedure.? ? Thank you for allowing me to participate in his care Medications New bisacodyl (Dulcolax (bisacodyl)) take 4 tabs at noon the day before your colonoscopy 20 mg (4 x 5 mg) PO ONCE 1 day 4 tabs 0RF Z12.11 polyethylene glycol 3350 (Miralax) As directed by gastroenterology department at [facility] 238 grams PO ONCE 238 grams 0RF Z12.11 docusate sodium 100 mg PO BEDTIME 90 caps 3RF K59.00 omeprazole 20 mg PO DAILY 30 caps 3RF K21.9 COLONOSCOPY Findings: Larynx:normal Esophagus: GE junction at 40 cm, diaphragm hiatus at 40 cm, mild inflammation at GEJ--bx taken as well as from distal esophagus Stomach: mild erythema. Biopsies were obtained. Grade 2 flap valve on retroflexed examination of the cardia. Duodenum: Normal bulb and descending duodenum, bx taken Intervention: Biopsies as noted above, COLONOSCOPY Instrument: Olympus variable stiffness pediatric scope 190L Colonoscopy Monitoring: Vital signs and clinical assessment, continuous EKG monitoring, Pulse oximetry, Carbon Dioxide monitoring and blood pressure monitoring were done throughout the procedure. Colon withdrawal time was 8 minutes. Procedure: The patient was placed in the left lateral decubitis position and pre-procedure medications were administered. After a digital rectal examination of the ano-rectum, the video colonoscope was inserted into the rectum and advanced through the colon to the cecum/TI. The colonoscope was slowly withdrawn in a retrograde panoramic fashion and the colon mucosa was carefully examined including a retroflexed view of the rectum. Findings and interventions are described below. Procedure Difficulty:moderate Findings: Terminal Ileum-normal Cecum:normal Ascending Colon: few diverticula seen Transverse Colon -normal Descending Colon:normal Sigmoid Colon: mild diverticulosis Rectum: Retroflexion with small internal hemorrhoids, grade I Anorectum - normal Colon preparation: [place] Bowel Preparation Scale Right colon; 2 Transverse colon: 2 Left colon; 2 (0 = Unprepared colon segment with mucosa not seen due to solid stool that cannot be cleared. 1 = Portion of mucosa of the colon segment seen, but other areas of the colon segment not well seen due to staining, residual stool and/or opaque liquid. 2 = Minor amount of residual staining, small fragments of stool and/or opaque liquid, but mucosa of colon segment seen well. 3 = Entire mucosa of colon segment seen well with no residual staining, small fragments of stool or opaque liquid) Impression and Post Procedure Diagnosis: Endoscopy Findings: midl gastritis Colonoscopy Findings: diverticulosis internal hemorrhoids Plan: Await Pathology results Repeat Colonoscopy in 5 years due to FH of CRC or earlier if clinically indicated High fiber diet leaflet avoid straining at stool, epsom salts and sitz bath, anusol supps or cream PATHOLOGY RESULTS Diagnosis A. Duodenum, biopsy: Duodenal mucosa within normal limits. B. Stomach, biopsy: Oxyntic mucosa with mild chronic inactive inflammation; no Helicobacter organisms seen. C. GE junction, biopsy: - Cardiofundic-type mucosa with mild chronic inactive inflammation; no intestinal metaplasia seen. - Active esophagitis (few eosinophils and neutrophils). D. Esophagus, distal, biopsy: Squamous epithelium within normal limits; no inflammation seen. E. Terminal ileum, biopsy: Terminal ileal mucosa within normal limits. F. Colon, random, biopsy: Colonic mucosa within normal limits. Clinical History Pre-Op Dx: Weight loss, poor appetite Post-Op Dx: Gastritis, esophagitis, diverticulosis, internal hemorrhoids Microscopic Description A-F. Microscopic sections examined. No metaplastic changes are seen, supported by AB/PAS stains (A- C); no Helicobacter organisms are seen, supported by H. pylori immunostain (B). Material Received A. Duodenum B. Stomach C. GE junction D. Distal esophagus E. TI F. Random colon TODAY'S VISIT Patient is here today for follow-up and to discuss upper endoscopy and colonoscopy results. Patient denies any ill effects from the prep, anesthesia or procedure itself. Patient reports to be feeling well. Upper endoscopy and colonoscopy results and biopsies discussed with patient. Patient had no polyps, however due to family history of colorectal cancer he will return for colorectal screening in 5 years. Patient reports that he has been feeling better now. Denies any epigastric pain, dyspepsia, dysphagia or odynophagia. States that he no longer needs to take omeprazole. Patient reports that he is avoiding dietary triggers as much as he can. Unable to drink anything that has limited in it or any tomato products. Patient was diagnosed with bladder cancer and will start chemotherapy. Patient has appointment with oncology next week. Upper endoscopy showed mild gastritis. [facility] Medical History (Updated 01/23/24 @ 20:[address] [facility]) Family history of colorectal cancer Asthma Polysubstance abuse GERD (gastroesophageal reflux disease) Schizophrenia Hypercholesterolemia Carpal tunnel syndrome on both sides Tobacco abuse Surgical History Hx of esophagogastroduodenoscopy Hx of colonoscopy History of surgery of head History of lumbar surgery H/O hand surgery History of hip surgery H/O left knee surgery H/O right wrist surgery Family History Father Colon cancer Mother Diabetes Paternal Grandfather Gallbladder cancer Paternal Aunt Colon cancer Gallbladder cancer Breast cancer Leukemia Paternal Aunt Cancer Social History Housing: Apartment Alcohol intake: never Patient Tobacco Use Status: Current everyday Tobacco user Tobacco use type: Cigarette Cigarettes Per Day: 2 e-Cigarette/Vaping Use: Never Used Second Hand Smoke Exposure: Yes Substance Use Type: Marijuana service: No Current occupational status: disabled Cognitive needs: No Hearing needs: No Vision needs: No Review of Systems Const Denies weight gain and Reports weight loss ENT Reports no additional complaints, Denies dysphagia and Denies odynophagia Card Reports no additional complaints Resp Reports no additional complaints GI Denies abdominal pain, Denies belching, Denies melena, Denies bloating, Denies change in bowel habits, Denies dysphagia, Denies excessive flatus, Denies dyspepsia, Denies heartburn, Denies diarrhea, Denies loose stools, Denies nausea, Denies odynophagia and Denies vomiting Reports no additional complaints Musc Reports no additional complaints Neuro Reports no additional complaints Psych Reports no additional complaints Endo Reports no additional complaints Physical Exam Vital Signs: Last Vital Signs Pulse 70 01/23/24 09:59 BP 94/56 L 01/23/24 09:59 Pulse Ox 97 01/23/24 09:59 Oxygen Delivery Method Room Air 01/23/24 09:59 BMI result Body Mass Index 18.1 Const General: healthy appearing and no acute distress Nutritional Appearance: underweight Orientation/consciousness: patient oriented x3 HEENT Head: Yes normal to inspection, Yes normocephalic and Yes atraumatic Face and sinus: Yes normal facial exam Mouth: Normal oral and palatal mucosa present Throat: Yes posterior oropharynx normal, Yes tonsils normal and Yes uvula midline Eyes General: appearance normal, both eyes and all related structures Neck Neck: Yes normal visual inspection, Yes full ROM and Yes trachea midline Thyroid: Thyroid normal Resp Effort & Inspection: normal respiratory effort, able to speak in complete sentences, no tracheal deviation and symmetric chest movement Auscultation: clear to auscultation bilaterally Cardio Rate: regular rate GI Inspection: No distended Palpation (GI): Soft to palpation, not firm, nontender and No hepatosplenomegaly present Auscultation: normal bowel sounds General: Yes no CVA tenderness Back/Spine/Pelvis Back: no CVA tenderness Skin General skin exam: elasticity normal, turgor normal and dry skin Neuro General: patient oriented x3 Psych Appearance: grossly normal Mental Status: mental status grossly normal Assessment & Plan Assessment & Plan (1) Status post colonoscopy: Code(s): Z98.890 - Other specified postprocedural states (2) Diverticulosis: Code(s): K57.90 - Diverticulosis of intestine, part unspecified, without perforation or abscess without bleeding (3) Family history of colorectal cancer: Code(s): Z80.0 - Family history of malignant neoplasm of digestive organs Category: Medical (4) Gastritis: Code(s): K29.70 - Gastritis, unspecified, without bleeding Qualifiers: Gastritis type: superficial Chronicity: chronic Gastritis bleeding: without bleeding Qualified Code(s): K29.30 - Chronic superficial gastritis without bleeding Plan Upper endoscopy and colonoscopy results discussed with patient. Patient will continue omeprazole on as needed basis. Patient reports that he has no epigastric pain or no acid reflux. Avoiding dietary triggers and reports that he is feeling better. Colonoscopy in 5 years due to family history of colorectal cancer, sooner if clinically necessary. Patient was encouraged to eat high-fiber diet. Continue to drink protein shakes. Patient will follow-up in our office on as needed basis. He is agreeable to this plan and verbalizes understanding of instructions. He was given the opportunity to ask questions and all questions answered. Thank you for allowing me to participate in his care Medications: Discontinued omeprazole Discontinued Reason: Doctor's Order 20 mg PO DAILY 30 caps 3RF K21.9 - Gastro-esophageal reflux disease without esophagitis Coding Level of Care Code Est Pt Level 3 (70895) Diagnoses Status post colonoscopy Z98.890 Diverticulosis K57.90 Family history of colorectal cancer Z80.0 Chronic superficial gastritis without bleeding K29.30 Gastritis type: superficial Chronicity: chronic Gastritis bleeding: without bleeding Time Spent (min) 30 Comment 20 minutes spent with patient and additional 10 minutes spent reviewing his records
[2024-01-23 09:59] VITALS: BP 94/56; PULSE 70; O2SAT 97; BMI 18.1
== END 2024-01-23 10:39 | disposition home or self-care (01) ==
PROVIDERS: PCP Internal Medicine; Visit Provider Nurse Practitioner Family
DX: Z98.890 Other specified postprocedural states (principal); K57.90 Diverticulosis of intestine, part unspecified, without perforation or abscess without bleeding; Z80.0 Family history of malignant neoplasm of digestive organs; K29.30 Chronic superficial gastritis without bleeding
CPT/HCPCS: 99213

== ENCOUNTER → 2024-01-23 09:53 | Outpatient (BNVA) | payer OTHER, SELFPAY | PROVIDERS: PCP Internal Medicine; Visit Provider Nurse Practitioner Family | DX: K29.30 Chronic superficial gastritis without bleeding (principal); K57.90 Diverticulosis of intestine, part unspecified, without perforation or abscess without bleeding; Z80.0 Family history of malignant neoplasm of digestive organs; Z98.890 Other specified postprocedural states | CPT/HCPCS: 99212 ==

== ENCOUNTER 2024-01-30 10:40 | Outpatient (AMB) | payer OTHER, SELFPAY ==
[2024-01-30 10:41] VITALS: BP 108/60; PULSE 80; O2SAT 97; BMI 17.9
--- NOTE | 2024-01-30 10:41 | A.OFFPC_ITS ---
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 Allergies No Known Allergies [No Known Allergies*] Allergy (Verified 01/30/24 10:41) Medication List - Last Reconciled 01/30/24 by Jay Jay Watson MD [Boost Plus As directed] albuterol sulfate 90 mcg/actuation (ProAir HFA) 2 puffs inhalation Q4-6H PRN atorvastatin 20 mg PO DAILY buprenorphine-naloxone 8-2 mg 1 film sublingual TID [cbd VAPE no THC ] [CHUX PADS As directed] olanzapine 20 mg PO DAILY phenazopyridine (Pyridium) 200 mg PO BID tamsulosin 0.4 mg PO BEDTIME 90 days Tobacco use date assessed: 01/30/24 Dental Screening Dental Screen Date: 01/30/24 HPI bladder lesi0n, cholesterol HPI Details 43-year-old male smoker with a history o f bladder mass seeing Urology up-to-date with colonoscopy 01/09/2024 impaired glucose tolerance, schizophrenia, GERD hypercholesterolemia comes in for follow-up. Last seen in 10/11/2023 review of the notes last month was seen by Urology status post TURBT 12/10/2023 high- grade invasive urothelial bladder mass treatment of instillation gemcitabine docetaxel PFSH Medical History (Updated 01/30/24 @ 11:13 by Jay Jay Watson MD) Family history of colorectal cancer Asthma Polysubstance abuse GERD (gastroesophageal reflux disease) Schizophrenia Hypercholesterolemia Carpal tunnel syndrome on both sides Tobacco abuse Surgical History Hx of esophagogastroduodenoscopy Hx of colonoscopy History of surgery of head History of lumbar surgery H/O hand surgery History of hip surgery H/O left knee surgery H/O right wrist surgery Family History Father Colon cancer Mother Diabetes Paternal Grandfather Gallbladder cancer Paternal Aunt Colon cancer Gallbladder cancer Breast cancer Leukemia Paternal Aunt Cancer Social History Housing: Apartment Alcohol intake: never Patient Tobacco Use Status: Current everyday Tobacco user Tobacco use type: Cigarette Cigarettes Per Day: 2 e-Cigarette/Vaping Use: Never Used Second Hand Smoke Exposure: Yes Substance Use Type: Marijuana service: No Current occupational status: disabled Cognitive needs: No Hearing needs: No Vision needs: No Questionnaire PHQ-9 Over the last 2 weeks, how often have you been bothered by any of the following problems? 1. Little interest or pleasure in doing things: not at all 2. Feeling down, depressed, or hopeless: not at all 3. Trouble falling or staying asleep, or sleeping too much: not at all 4. Feeling tired or having little energy: not at all 5. Poor appetite or overeating: not at all 6. Feeling bad about yourself - or that you are a failure or have let yourself or your family down: not at all 7. Trouble concentrating on things, such as reading the newspaper or watching television: not at all 8. Moving or speaking so slowly that other people could have noticed. Or the opposite - being so fidgety or restless that you have been moving around a lot more than usual: not at all 9. Thoughts that you would be better off or of hurting yourself in some way: not at all Total score: 0 Depression Screening Interpretation: Negative Depression Screening Done: Yes 38773 - PHQ-9 Billing: Yes Source: Developed by Drs. Valente Garcia, Thanh Benton and colleagues, with an educational vince from [employer]. Thrive Questionnaire Date Thrive assessed: 10/17/23 AUDIT C Alcohol Use Questionnaire (AUDIT-C) 1. How often do you have a drink containing alcohol?: Never 3. How often do you have six or more drinks on one occasion?: Never Total Score: 0 Score Reviewed/Action Taken: No JAYDEN-7 AMB Questionnaire JAYDEN-7 Date JAYDEN - 7 assessed: 10/17/23 Source: Developed by Drs. Valente Garcia, Thanh Benton and colleagues, with an educational vince from [employer]. Physical exam (Primary Care) Vital Signs: Last Vital Signs Pulse 80 01/30/24 10:41 BP 108/60 01/30/24 10:41 Pulse Ox 97 01/30/24 10:41 Oxygen Delivery Method Room Air 01/30/24 10:41 BMI result Body Mass Index 17.9 Tobacco/Smoking Status: Tobacco use Status Tobacco use date assessed 01/30/24 01/30/24 10:42 Patient Tobacco Use Status Current everyday Tobacco 01/30/24 10:42 Tobacco use type Cigarette 01/30/24 10:42 e-Cigarette/Vaping Use Never Used 01/30/24 10:42 PHQ-9: PHQ-9 Score PHQ-9: Total score 0 01/30/24 10:42 Depression Screening Interpretation: Negative Thrive Assessment: Date of Thrive Assessment Date Thrive assessed 10/17/23 01/30/24 10:42 Const General: alert; No acute distress Eyes Conjunctivae: conjunctivae normal Resp Auscultation: clear to auscultation bilaterally Cardio Rate: regular rate Rhythm: regular rhythm GI Inspection: Yes normal to inspection Extrem General: Yes normal to inspection and No edema Assessment and Plan Assessment & Plan (1) Urinary bladder cancer: Comment: 11/2023 Code(s): C67.9 - Malignant neoplasm of bladder, unspecified Plan: Patient is being followed up by Urology and Oncology on gemcitabine, docetaxel treatment (2) GERD (gastroesophageal reflux disease): Code(s): K21.9 - Gastro-esophageal reflux disease without esophagitis Qualifiers: Esophagitis presence: without esophagitis Qualified Code(s): K21.9 - Gastro-esophageal reflux disease without esophagitis Plan: Avoid the foods that causes that usually spicy foods, tomato products, juices, coffee, soda and foods that your sensitive to. After eating do not lie down, allow 3-4 hours before in lie down. And keep the head of bed above 30 degrees to avoid the acid from going up. (3) Hypercholesterolemia: Code(s): E78.00 - Pure hypercholesterolemia, unspecified Plan: Avoid fried foods, chicken skin, eggs, butter margarine, pastries and meat. Be it pork or beef they have a lot of cholesterol on atorvastatin 20 mg once a day LDL goal of less than 130 (4) Tobacco abuse: Code(s): Z72.0 - Tobacco use Plan: Strongly advised to stop smoking ! (5) Schizophrenia: Comment: [facility] counselling (03/2022) Code(s): F20.9 - Schizophrenia, unspecified Qualifiers: Schizophrenia type: disorganized schizophrenia Qualified Code(s): F20.1 - Disorganized schizophrenia Plan: Continue with counseling and therapy Orders: Orders Comprehensive Met. Panel 3 Months E78.00 - Pure hypercholesterolemia, unspecified Lipid Panel 3 Months E78.00 - Pure hypercholesterolemia, unspecified Medications: New [CHUX PADS] As directed 60 ea 11RF C67.9 - Malignant neoplasm of bladder, unspecified nicotine 1 patch transdermal DAILY 28 ea 0RF Z72.0 - Tobacco use nicotine 1 patch transdermal Q24H 28 ea 1RF Z72.0 - Tobacco use multivitamin 1 tab PO DAILY 30 tabs 6RF Refilled atorvastatin 20 mg PO DAILY 90 tabs 1RF E78.00 - Pure hypercholesterolemia, unspecified Coding Level of Care Code Est Pt Level 4 (53125) Complex EM visit Add On G2211 Diagnoses Urinary bladder cancer C67.9 Gastroesophageal reflux disease without esophagitis K21.9 Esophagitis presence: without esophagitis Hypercholesterolemia E78.00 Tobacco abuse Z72.0 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
== END 2024-01-30 11:34 | disposition home or self-care (01) ==
PROVIDERS: PCP Internal Medicine; Visit Provider Internal Medicine
DX: K21.9 Gastro-esophageal reflux disease without esophagitis (principal); F20.1 Disorganized schizophrenia; C67.9 Malignant neoplasm of bladder, unspecified; E78.00 Pure hypercholesterolemia, unspecified; Z72.0 Tobacco use
CPT/HCPCS: 99214; G2211

== ENCOUNTER 2024-05-07 12:30 | Outpatient (AMB) | payer OTHER, SELFPAY ==
--- NOTE | 2024-05-07 12:35 | A.OFFPC_ITS ---
Vital Signs 05/07/24 12:41 Height 5 ft 11 in Weight 129 lb BMI 18.0 BP 100/60 Blood Pressure Location Rt brachial Position Sitting Pulse 72 Pulse Source Pulse Oximeter Pulse Oximetry (%) 97 Oxygen Delivery Method Room Air Intake Visit Reasons: PE Intake Note: Patient is here today for a physical. Tiler'S Assistant Required: No Accompanied by: Self / Same As Patient Allergies No Known Allergies [No Known Allergies*] Allergy (Verified 05/07/24 12:36) Medication List - Last Reconciled 05/07/24 by Jay Jay Watson MD [Boost Plus As directed] albuterol sulfate 90 mcg/actuation (ProAir HFA) 2 puffs inhalation Q4-6H PRN atorvastatin 20 mg PO DAILY buprenorphine-naloxone 8-2 mg 1 film sublingual TID [cbd VAPE no THC ] [CHUX PADS As directed] multivitamin 1 tab PO DAILY nicotine 1 patch transdermal DAILY nicotine 1 patch transdermal Q24H olanzapine 20 mg PO DAILY tamsulosin 0.4 mg PO BEDTIME 90 days Tobacco use date assessed: 01/30/24 Dental Screening Dental Screen Date: 01/30/24 HPI PE HPI Details 44-year-old male smoker with schizophren ia, urinary bladder cancer GERD hypercholesterolemia coming in for physical exam last seen in January 2024. Patient had colonoscopy done in December 2023. [facility] Medical History (Updated 05/07/24 @ 13:02 by Jay Jay Watson MD) Annual physical exam Constipation Underweight Hematuria Urinary dribbling Gross hematuria Abnormal urine cytology Preop testing Bladder mass Family history of colorectal cancer Asthma Polysubstance abuse GERD (gastroesophageal reflux disease) Schizophrenia Hypercholesterolemia Carpal tunnel syndrome on both sides Tobacco abuse Surgical History Hx of esophagogastroduodenoscopy Hx of colonoscopy History of surgery of head History of lumbar surgery H/O hand surgery History of hip surgery H/O left knee surgery H/O right wrist surgery Family History Father Colon cancer Mother Diabetes Paternal Grandfather Gallbladder cancer Paternal Aunt Colon cancer Gallbladder cancer Breast cancer Leukemia Paternal Aunt Cancer Social History (Updated 05/07/24 @ 12:50 by Jay Jay Watson MD) Housing: Apartment Alcohol intake: never Patient Tobacco Use Status: Current everyday Tobacco user Tobacco use type: Cigarette Cigarettes Per Day: 2 Years Smoked: not ready to stop e-Cigarette/Vaping Use: Never Used Second Hand Smoke Exposure: Yes Substance Use Type: Marijuana service: No Current occupational status: disabled Cognitive needs: No Hearing needs: No Vision needs: No Questionnaire PHQ-9 Over the last 2 weeks, how often have you been bothered by any of the following problems? 1. Little interest or pleasure in doing things: not at all 2. Feeling down, depressed, or hopeless: several days 3. Trouble falling or staying asleep, or sleeping too much: more than half the days 4. Feeling tired or having little energy: several days 5. Poor appetite or overeating: more than half the days 6. Feeling bad about yourself - or that you are a failure or have let yourself or your family down: not at all 7. Trouble concentrating on things, such as reading the newspaper or watching television: not at all 8. Moving or speaking so slowly that other people could have noticed. Or the opposite - being so fidgety or restless that you have been moving around a lot more than usual: several days 9. Thoughts that you would be better off or of hurting yourself in some way: not at all Total score: 7 59224 - PHQ-9 Billing: Yes Source: Developed by Drs. Valente Garcia, Sienna Jin, Thanh Rae and colleagues, with an educational vince from [employer]. Thrive Questionnaire Date Thrive assessed: 05/07/24 I am a: Patient What is your living situation today?: I have a steady place to live Within the past 12 months, did the food you bought not last and you didn't have the money to get more?: Sometimes True Within the past 12 months, did you worry whether your food would run out before you got money to buy more?: Sometimes True Do you have trouble paying for medicines?: No Do you have trouble getting transportation to medical appointments?: No Do you have trouble paying your heating and electricity bill?: No Do you have trouble taking care of your child, family member or friend?: No Do you have trouble with day-to-day activities such as bathing, preparing meals, shopping, managing finances, etc.?: No Are you currently unemployed and looking for a job?: I choose not to answer this question Are you interested in more education?: No Please select the resources that you would like help with: Utilities Currently or been in a relationship where the following occur: No concerns reported THRIVE Score: 2 AUDIT C Alcohol Use Questionnaire (AUDIT-C) 1. How often do you have a drink containing alcohol?: Never 3. How often do you have six or more drinks on one occasion?: Never Total Score: 0 JAYDEN-7 AMB Questionnaire JAYDEN-7 Date JAYDEN - 7 assessed: 05/07/24 Feeling nervous, anxious, or on edge: 0 = Not at all Not being able to stop or control worryin = Not at all Worrying too much about different things: 0 = Not at all Trouble relaxin = Not at all Being so restless that it is hard to sit still: 0 = Not at all Becoming easily annoyed or irritable: 0 = Not at all Feeling afraid as if something awful might happen: 0 = Not at all Total JAYDEN-7 score (0-4 normal; 5-9 mild; 10-14 moderate; 15-21 severe): 0 Source: Developed by Drs. Valente Garcia, Sienna Jin, Thanh Rae and colleagues, with an educational vince from [employer]. JAYDEN-7 Assessment Billing JAYDEN-7 Assessment Tool: JAYDEN-7 Assessment 66445 Review of Systems Const Denies poor appetite and Denies weakness Eyes Denies no additional complaints ENT Reports Normal hearing present, Denies dizziness, Denies nasal congestion, Denies tinnitus and Denies sore throat Card Denies chest pain, Denies syncope, Denies rapid heart rate and Denies dyspnea Resp Denies cough and Denies dyspnea GI Denies change in stool character, Reports constipation, Denies diarrhea, Denies nausea and Denies vomiting Denies dysuria and Denies urinary frequency Neuro Reports Normal hearing present, Denies confusion, Denies dizziness, Denies syncope and Denies weakness Psych Denies confusion Physical exam (Primary Care) Vital Signs: Last Vital Signs Pulse 72 05/07/24 12:41 BP 100/60 05/07/24 12:41 Pulse Ox 97 05/07/24 12:41 Oxygen Delivery Method Room Air 05/07/24 12:41 BMI result Body Mass Index 18.0 Tobacco/Smoking Status: Tobacco use Status Tobacco use date assessed 01/30/24 05/07/24 12:38 Patient Tobacco Use Status Current everyday Tobacco 05/07/24 12:38 Tobacco use type Cigarette 05/07/24 12:38 e-Cigarette/Vaping Use Never Used 05/07/24 12:38 PHQ-9: PHQ-9 Score PHQ-9: Total score 7 05/07/24 12:38 Thrive Assessment: Date of Thrive Assessment Date Thrive assessed 05/07/24 05/07/24 12:38 Currently or been in a relationship where the following occur: No concerns reported Const General: No confusion Orientation/consciousness: No confusion HENMT Head: Yes normocephalic Ears: external ears normal and TM's normal bilaterally Face and sinus: Yes normal facial exam Mouth: moist mucous membranes Throat: Yes tonsils normal Eyes Other: L eye lateral deviation Conjunctivae: conjunctivae normal Pupils: Equal, round and reactive pupils present and Pupil accommodation reflex normal Direct Ophthalmoscopy: normal light reflex Neck Neck: No lymphadenopathy Thyroid: Thyroid normal Chest Chest palpation & inspection: normal inspection of the chest Resp Effort & Inspection: normal respiratory effort and no audible wheezes Auscultation: clear to auscultation bilaterally, no crackles, no wheezes and lung sounds not diminished Cardio Rate: regular rate Rhythm: regular rhythm Peripheral pulses: radial pulses present and dorsalis pedis present GI Other: colon test recent Palpation (GI): no masses Auscultation: normal bowel sounds and normoactive bowel sounds Rectal Exam - Male: Yes deferred Male General Exam: Yes normal external exam Back/Spine/Pelvis Other: incisional scat thoracic spine Skin General skin exam: no rashes or lesions noted Rashes: no rashes Neuro Other: cannot bend L knee and cannot dorsiflex foot hand cannotclose other fingers General: No confusion Cranial nerves: Yes Equal, round and reactive pupils present and Yes Normal hearing present Cognition (Neuro): normal cognition Deep tendon reflexes (DTR's): Right brachioradialis reflex intensity grade: 2+, Left brachioradialis reflex intensity grade: 2+, Right patellar reflex intensity grade: 2+ and Left patellar reflex intensity grade: 2+ Extrem General: No edema Assessment and Plan Assessment & Plan (1) Annual physical exam: Code(s): Z00.00 - Encounter for general adult medical examination without abnormal findings Plan: Patient is advised to eat healthy, keep well hydrated, keep active and have adequate sleep. (2) Tobacco abuse: Code(s): Z72.0 - Tobacco use Plan: Patient is strongly advised to stop smoking (3) Hypercholesterolemia: Code(s): E78.00 - Pure hypercholesterolemia, unspecified Plan: Avoid fried foods, chicken skin, eggs, butter margarine, pastries and meat. Be it pork or beef they have a lot of cholesterol on atorvastatin 20 mg once a day LDL goal of less than 130 and triglyceride of less than 150 (4) Schizophrenia: Comment: [facility] counselling (03/2022) Code(s): F20.9 - Schizophrenia, unspecified Qualifiers: Schizophrenia type: disorganized schizophrenia Qualified Code(s): F20.1 - Disorganized schizophrenia Plan: Continue with counseling and therapy (5) GERD (gastroesophageal reflux disease): Code(s): K21.9 - Gastro-esophageal reflux disease without esophagitis Qualifiers: Esophagitis presence: without esophagitis Qualified Code(s): K21.9 - Gastro-esophageal reflux disease without esophagitis Plan: Avoid the foods that causes that usually spicy foods, tomato products, juices, coffee, soda and foods that your sensitive to. After eating do not lie down, allow 3-4 hours before in lie down. And keep the head of bed above 30 degrees to avoid the acid from going up. (6) Impaired fasting blood sugar: Code(s): R73.01 - Impaired fasting glucose Plan: Decrease the amount of carbohydrate intake, pasta, bread, rice and potatoes are all sugar and that is aside from all the sweet stuff, remember that fruits are good but they are Sweet also. (7) BPH (benign prostatic hyperplasia): Code(s): N40.0 - Benign prostatic hyperplasia without lower urinary tract symptoms Plan: Continue with tamsulosin and follow-up with urology (8) Urinary bladder cancer: Comment: 11/2023 Code(s): C67.9 - Malignant neoplasm of bladder, unspecified Plan: Patient is presently under treatment with Hematology-Oncology (9) LFT elevation: Code(s): R79.89 - Other specified abnormal findings of blood chemistry Plan: Discussed with the patient that request for blood work has been done (10) Polysubstance abuse: Code(s): F19.10 - Other psychoactive substance abuse, uncomplicated Plan: Continue with Suboxone (11) Asthma: Code(s): J45.909 - Unspecified asthma, uncomplicated Orders: Orders Hepatitis C Genotype Today B19.20 - Unspecified viral hepatitis C without hepatic coma Hepatitis C Viral Load Today B19.20 - Unspecified viral hepatitis C without hepatic coma Medications: Changed From albuterol sulfate 90 mcg/actuation (ProAir HFA) 2 puffs inhalation Q4-6H PRN Shortness Of Breath Or Wheezing J45.909 - Unspecified asthma, uncomplicated To albuterol sulfate 90 mcg/actuation 2 puffs inhalation Q4-6H PRN 8.5 grams 0RF Shortness Of Breath Or Wheezing J45.909 - Unspecified asthma, uncomplicated Refilled atorvastatin 20 mg PO DAILY 90 tabs 1RF E78.00 - Pure hypercholesterolemia, unspecified Coding Level of Care Code Est Pt Prev Care 40-64y(82762) Diagnoses Annual physical exam Z00.00 Tobacco abuse Z72.0 Hypercholesterolemia E78.00 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 Gastroesophageal reflux disease without esophagitis K21.9 Esophagitis presence: without esophagitis Impaired fasting blood sugar R73.01 BPH (benign prostatic hyperplasia) N40.0 Urinary bladder cancer C67.9 LFT elevation R79.89 Polysubstance abuse F19.10 Asthma J45.909 Additional Codes JAYDEN-7 Assessment Billing - JAYDEN-7 Assessment Tool: JAYDEN-7 Assessment [id number] ([id number])
[2024-05-07 12:41] VITALS: BP 100/60; PULSE 72; O2SAT 97; BMI 18.0
== END 2024-05-07 13:07 | disposition home or self-care (01) ==
PROVIDERS: PCP Internal Medicine; Visit Provider Internal Medicine
DX: Z00.00 Encounter for general adult medical examination without abnormal findings (principal); Z72.0 Tobacco use; E78.00 Pure hypercholesterolemia, unspecified; F20.1 Disorganized schizophrenia; K21.9 Gastro-esophageal reflux disease without esophagitis; R73.01 Impaired fasting glucose; N40.0 Benign prostatic hyperplasia without lower urinary tract symptoms; C67.9 Malignant neoplasm of bladder, unspecified; R79.89 Other specified abnormal findings of blood chemistry; F19.10 Other psychoactive substance abuse, uncomplicated; J45.909 Unspecified asthma, uncomplicated

== ENCOUNTER → 2024-05-07 12:30 | Outpatient (BNVA) | payer OTHER, SELFPAY | PROVIDERS: PCP Internal Medicine; Visit Provider Internal Medicine ==

== ENCOUNTER 2024-05-28 14:13 | Outpatient (AMB) | payer OTHER, SELFPAY ==
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
== END 2024-05-28 15:30 | disposition home or self-care (01) ==
PROVIDERS: PCP Internal Medicine; Visit Provider Urology
DX: F17.200 Nicotine dependence, unspecified, uncomplicated (principal); C67.9 Malignant neoplasm of bladder, unspecified
CPT/HCPCS: 99214

== ENCOUNTER → 2024-05-28 14:13 | Outpatient (BNVA) | payer OTHER, SELFPAY | PROVIDERS: PCP Internal Medicine; Visit Provider Urology | DX: C67.9 Malignant neoplasm of bladder, unspecified (principal); F17.210 Nicotine dependence, cigarettes, uncomplicated | CPT/HCPCS: 81003; 99212 ==

== ENCOUNTER 2024-06-18 11:12 | Outpatient (AMB) | payer OTHER, SELFPAY ==
[2024-06-18 11:13] VITALS: BP 118/62; PULSE 71; O2SAT 97; BMI 18.5
--- NOTE | 2024-06-18 11:13 | MHC.PC.OV ---
Vital Signs 06/18/24 11:13 Height 5 ft 11 in Weight 133 lb BMI 18.5 BP 118/62 Blood Pressure Location Lt brachial Position Sitting Pulse 71 Pulse Source Pulse Oximeter Pulse Oximetry (%) 97 Oxygen Delivery Method Room Air Intake Visit Reasons: Cholesterol, Smoker, Bladder Cancer Telephone Lines Repairer Required: No Allergies No Known Allergies [No Known Allergies*] Allergy (Verified 06/18/24 11:14) Tobacco use date assessed: 01/30/24 Dental Screening Dental Screen Date: 01/30/24 HPI Cholesterol, Smoker, Bladder Cancer HPI Details 44-year-old male smoker with hypercholesterolemia GERD impaired glucose tolerance BPH history of urinary bladder cancer history of polysubstance abuse and schizophrenia coming in for follow-up. Last seen in April for physical exam. Patient is up-to-date with colonoscopy. Review of the notes has seen urology May 2024 high-grade invasive urothelial cancer. Completed 6 week bladder instillation with Oncology continue to monitor was cystoscopy. stopped smoking 05/2024 and doing no nicotine vape, but doers marijuana. [facility] Medical History Annual physical exam Constipation Underweight Hematuria Urinary dribbling Gross hematuria Abnormal urine cytology Preop testing Bladder mass Family history of colorectal cancer Asthma Polysubstance abuse GERD (gastroesophageal reflux disease) Schizophrenia Hypercholesterolemia Carpal tunnel syndrome on both sides Tobacco abuse Surgical History Hx of esophagogastroduodenoscopy Hx of colonoscopy History of surgery of head History of lumbar surgery H/O hand surgery History of hip surgery H/O left knee surgery H/O right wrist surgery Family History Father Colon cancer Mother Diabetes Paternal Grandfather Gallbladder cancer Paternal Aunt Colon cancer Gallbladder cancer Breast cancer Leukemia Paternal Aunt Cancer Social History Housing: Apartment Alcohol intake: never Patient Tobacco Use Status: Current everyday Tobacco user Tobacco use type: Cigarette Cigarettes Per Day: 2 Years Smoked: not ready to stop e-Cigarette/Vaping Use: Never Used Second Hand Smoke Exposure: Yes Substance Use Type: Marijuana service: No Current occupational status: disabled Cognitive needs: No Hearing needs: No Vision needs: No Questionnaire Thrive Questionnaire Date Thrive assessed: 05/07/24 I am a: Patient What is your living situation today?: I have a steady place to live Within the past 12 months, did the food you bought not last and you didn't have the money to get more?: Sometimes True Within the past 12 months, did you worry whether your food would run out before you got money to buy more?: Sometimes True Do you have trouble paying for medicines?: No Do you have trouble getting transportation to medical appointments?: No Do you have trouble paying your heating and electricity bill?: No Do you have trouble taking care of your child, family member or friend?: No Do you have trouble with day-to-day activities such as bathing, preparing meals, shopping, managing finances, etc.?: No Are you currently unemployed and looking for a job?: I choose not to answer this question Are you interested in more education?: No Please select the resources that you would like help with: Utilities Currently or been in a relationship where the following occur: No concerns reported THRIVE Score: 2 AUDIT C Alcohol Use Questionnaire (AUDIT-C) 1. How often do you have a drink containing alcohol?: Never 3. How often do you have six or more drinks on one occasion?: Never Total Score: 0 JAYDEN-7 AMB Questionnaire JAYDEN-7 Date JAYDEN - 7 assessed: 05/07/24 Source: Developed by Drs. Valente Garcia, Sienna Jin, Thanh Rae and colleagues, with an educational vince from [employer]. Physical exam (Primary Care) Vital Signs: Last Vital Signs Pulse 71 06/18/24 11:13 BP 118/62 06/18/24 11:13 Pulse Ox 97 06/18/24 11:13 Oxygen Delivery Method Room Air 06/18/24 11:13 BMI result Body Mass Index 18.5 Tobacco/Smoking Status: Tobacco use Status Tobacco use date assessed 01/30/24 06/18/24 11:18 Patient Tobacco Use Status Current everyday Tobacco 06/18/24 11:18 Tobacco use type Cigarette 06/18/24 11:18 e-Cigarette/Vaping Use Never Used 06/18/24 11:18 Thrive Assessment: Date of Thrive Assessment Date Thrive assessed 05/07/24 06/18/24 11:18 Currently or been in a relationship where the following occur: No concerns reported Const General: alert; No acute distress Eyes Conjunctivae: conjunctivae normal Resp Auscultation: clear to auscultation bilaterally Cardio Rate: regular rate Rhythm: regular rhythm GI Inspection: Yes normal to inspection Extrem General: Yes normal to inspection and No edema Coding Level of Care Code Est Pt Level 4 (07940) Diagnoses Malignant neoplasm of urinary bladder, unspecified site C67.9 Bladder location: unspecified site Impaired fasting blood sugar R73.01 Gastroesophageal reflux disease without esophagitis K21.9 Esophagitis presence: without esophagitis Hypercholesterolemia E78.00 Tobacco abuse Z72.0 Assessment & Plan Assessment & Plan (1) Urinary bladder cancer: Comment: 11/2023 Code(s): C67.9 - Malignant neoplasm of bladder, unspecified Category: Medical Qualifiers: Bladder location: unspecified site Qualified Code(s): C67.9 - Malignant neoplasm of bladder, unspecified Plan: Patient is being followed up by Urology plan of cysto and biopsy. Advised to stop smoking! (2) Impaired fasting blood sugar: Code(s): R73.01 - Impaired fasting glucose Category: Medical Plan: Decrease the amount of carbohydrate intake, pasta, bread, rice and potatoes are all sugar and that is aside from all the sweet stuff, remember that fruits are good but they are Sweet also. (3) GERD (gastroesophageal reflux disease): Code(s): K21.9 - Gastro-esophageal reflux disease without esophagitis Category: Medical Qualifiers: Esophagitis presence: without esophagitis Qualified Code(s): K21.9 - Gastro-esophageal reflux disease without esophagitis Plan: Avoid the foods that causes that usually spicy foods, tomato products, juices, coffee, soda and foods that your sensitive to. After eating do not lie down, allow 3-4 hours before in lie down. And keep the head of bed above 30 degrees to avoid the acid from going up., stop smoking! (4) Hypercholesterolemia: Code(s): E78.00 - Pure hypercholesterolemia, unspecified Category: Medical Plan: Avoid fried foods, chicken skin, eggs, butter margarine, pastries and meat. Be it pork or beef they have a lot of cholesterol patient is on atorvastatin 20 mg once a day but the blood work shows a high cholesterol. Has been requested to get blood work repeat. (5) Tobacco abuse: Comment: stopped 05/2024 Code(s): Z72.0 - Tobacco use Category: Medical Plan: Patient is strongly advised to stop smoking!= stopped 2 weeks and doing non nicotine vape!!! great ! Medications: New [INCONTINENCE BED PADS FOR ADULTS disposable] As directed 60 ea 12RF C67.9 - Malignant neoplasm of bladder, unspecified
== END 2024-06-18 11:56 | disposition home or self-care (01) ==
PROVIDERS: PCP Internal Medicine; Visit Provider Internal Medicine
DX: R73.01 Impaired fasting glucose (principal); K21.9 Gastro-esophageal reflux disease without esophagitis; C67.9 Malignant neoplasm of bladder, unspecified; E78.00 Pure hypercholesterolemia, unspecified; Z72.0 Tobacco use

== ENCOUNTER → 2024-06-18 11:12 | Outpatient (BNVA) | payer OTHER, SELFPAY | PROVIDERS: PCP Internal Medicine; Visit Provider Internal Medicine | DX: C67.9 Malignant neoplasm of bladder, unspecified (principal); R73.01 Impaired fasting glucose; K21.9 Gastro-esophageal reflux disease without esophagitis; E78.00 Pure hypercholesterolemia, unspecified; Z72.0 Tobacco use | CPT/HCPCS: 99212 ==

== ENCOUNTER 2024-06-26 08:01 | Day surgery (SDC) | payer OTHER, SELFPAY ==
[2024-06-26 08:31] VITALS: BMI 18.5
[2024-06-26 08:42] VITALS: BP 104/58; PULSE 71; RESP 16; TEMP 37.1; O2SAT 99
--- NOTE | 2024-06-26 08:50 | HO.ANESPROP2 ---
Documented by User: Katie Brown NP 06/25/24 09:10 HPI - Anesthesia Eval Consult details Narrative: 44yo M for Cystoscopy & Bladder Biopsy Suboxone daily PMFSH Active Problems Active Problems: All Active Problems Hepatitis C (Acute) Asthma (Acute) Family history of colorectal cancer (Acute) LFT elevation (Acute) Urinary bladder cancer (Acute) Nicotine dependence (Acute) Anemia (Acute) BPH (benign prostatic hyperplasia) (Acute) Annual physical exam (Acute) Idiopathic scoliosis of lumbosacral spine (Acute) Malnourished (Acute) Urinary incontinence (Acute) Impaired fasting blood sugar (Acute) Polysubstance abuse (Acute) GERD (gastroesophageal reflux disease) (Acute) Schizophrenia (Acute) Hypercholesterolemia (Acute) Carpal tunnel syndrome on both sides (Acute) Tobacco abuse (Acute) Past Medical History Medical History Annual physical exam Constipation Underweight Hematuria Urinary dribbling Gross hematuria Abnormal urine cytology Preop testing Bladder mass Family history of colorectal cancer Asthma Polysubstance abuse GERD (gastroesophageal reflux disease) Schizophrenia Hypercholesterolemia Carpal tunnel syndrome on both sides Tobacco abuse Family History Family History Father Colon cancer Mother Diabetes Paternal Grandfather Gallbladder cancer Paternal Aunt Colon cancer Gallbladder cancer Breast cancer Leukemia Paternal Aunt Cancer Family history of problems with anesthesia: No Surgical History Surgical History Hx of esophagogastroduodenoscopy Hx of colonoscopy History of surgery of head History of lumbar surgery H/O hand surgery History of hip surgery H/O left knee surgery H/O right wrist surgery History of Problems with Anesthesia: No Social History Social History Housing: Apartment Alcohol intake: never Patient Tobacco Use Status: Current everyday Tobacco user Tobacco use type: Cigarette Cigarettes Per Day: 2 Years Smoked: not ready to stop e-Cigarette/Vaping Use: Never Used Second Hand Smoke Exposure: Yes Use of substances other than those prescribed or required for medical reasons: Yes Substance Use Type: Marijuana Are you DNR?: No Advance Directives: No Advance Directives Information Provided: Yes Advance Directives on File: No Recently lost weight without trying: No Nutrition Risks: No Nutritional Risk Poor oral hygiene: No service: No Current occupational status: disabled Cognitive needs: No Hearing needs: No Vision needs: No Meds Allergies Allergy/AdvReac Type Severity Reaction Status Date / Time No Known Allergies Allergy Verified 06/18/24 11:14 [No Known Allergies*] Home Medications ?Medication ?Instructions ?Recorded ?Confirmed ?Last Taken ?Type buprenorphine 8 mg-naloxone 2 mg 1 film sublingual TID 04/16/21 05/07/24 06/26/24 History sublingual film cbd VAPE no THC 04/29/23 05/07/24 Unknown History Exam Pertinent Lab Results Pertinent Lab Results: Laboratory Tests 11/21/23 10:40 WBC 8.0 Hgb 15.3 Hct 45.2 Plt Count 235 Sodium 140 Potassium 4.2 Chloride 104 Carbon Dioxide 28 BUN 25 H Creatinine 0.78 Assessment and Plan Assessment Anesthesia Assessment: Chart Reviewed Final Anesthetic Review Family History of Problems with Anesthesia: No History of Problems with Anesthesia: No Documented by User: Kristin Garcia DO 06/26/24 08:55 HPI - Anesthesia Eval Consult details Narrative: 44yo M for Cystoscopy & Bladder Biopsy Suboxone daily. Smoker - cigarettes and marijuana. PMFSH Past Medical History Medical History Annual physical exam Constipation Underweight Hematuria Urinary dribbling Gross hematuria Abnormal urine cytology Preop testing Bladder mass Family history of colorectal cancer Asthma Polysubstance abuse GERD (gastroesophageal reflux disease) Schizophrenia Hypercholesterolemia Carpal tunnel syndrome on both sides Tobacco abuse Family History Family History Father Colon cancer Mother Diabetes Paternal Grandfather Gallbladder cancer Paternal Aunt Colon cancer Gallbladder cancer Breast cancer Leukemia Paternal Aunt Cancer Family history of problems with anesthesia: No Surgical History Surgical History Hx of esophagogastroduodenoscopy Hx of colonoscopy History of surgery of head History of lumbar surgery H/O hand surgery History of hip surgery H/O left knee surgery H/O right wrist surgery History of Problems with Anesthesia: No Social History Social History Housing: Apartment Alcohol intake: never Patient Tobacco Use Status: Current everyday Tobacco user Tobacco use type: Cigarette Cigarettes Per Day: 2 Years Smoked: not ready to stop e-Cigarette/Vaping Use: Never Used Second Hand Smoke Exposure: Yes Use of substances other than those prescribed or required for medical reasons: Yes Substance Use Type: Marijuana Are you DNR?: No Advance Directives: No Advance Directives Information Provided: Yes Advance Directives on File: No Recently lost weight without trying: No Nutrition Risks: No Nutritional Risk Poor oral hygiene: No service: No Current occupational status: disabled Cognitive needs: No Hearing needs: No Vision needs: No Meds Allergies Allergy/AdvReac Type Severity Reaction Status Date / Time No Known Allergies Allergy Verified 06/18/24 11:14 [No Known Allergies*] Home Medications ?Medication ?Instructions ?Recorded ?Confirmed ?Last Taken ?Type buprenorphine 8 mg-naloxone 2 mg 1 film sublingual TID 04/16/21 05/07/24 06/26/24 History sublingual film cbd VAPE no THC 04/29/23 05/07/24 Unknown History Exam Exam Date and Time: 06/26/24 0850 Height,Weight and Vital Signs: Height 5 ft 11 in Weight 60.101 kg Vital Signs Temperature 98.8 F 06/26/24 08:42 Pulse Rate 71 06/26/24 08:42 Respiratory Rate 16 06/26/24 08:42 Blood Pressure 104/58 L 06/26/24 08:42 Pulse Oximetry 99 06/26/24 08:42 Oxygen Delivery Method Room Air 06/26/24 08:42 Temperature 98.8 F 06/26/24 08:42 Pulse Rate 71 06/26/24 08:42 Respiratory Rate 16 06/26/24 08:42 Blood Pressure 104/58 L 06/26/24 08:42 Pulse Oximetry 99 06/26/24 08:42 Oxygen Delivery Method Room Air 06/26/24 08:42 Airway Mallampati Class: I TM Dist: >3cm Neck ROM: Full Loose/Missing/Broken Teeth: No (patient denies any loose or broken teeth) Heart: S1S2 Lungs: CTAB Assessment and Plan Assessment Anesthesia Assessment: Anesthesia Plan Discussed and Chart Reviewed Final Anesthetic Review Family History of Problems with Anesthesia: No History of Problems with Anesthesia: No NPO: Yes ASA Class: III Final Preanesthetic Review: No Changes in Pt Med Stat, Meds/Allgs Chart Reviewed, Consent Obtained/Reviewed and Anes Risks/Benef Reviewed Patient Risk: Intermediate Procedure Risk: Low Anesthetic Plan Anesthetic Plan: GA and Agree w/ Assess. and Plan Disposition: Standard PACU
[2024-06-26] MEDS: Lactated Ringers 1,000 ML 100 ML IVCONT (09:01)
--- NOTE | 2024-06-26 09:39 | MHC.SHP ---
Pre-Procedural Eval Section A - 24 Hr Update-Section A only Date of Service: 06/26/24 The patient is an INPATIENT: No The patient has been examined within 24 hours of the surgical procedure. The History & Physical has been completed within 30 days and I have reviewed it.: Yes Section B - Complete if H&P > 30 days Chief Complaint: Malignant neoplasm of bladder, unspecified Allergies: Allergies Allergy/AdvReac Type Severity Reaction Status Date / Time No Known Allergies Allergy Verified 06/18/24 11:14 [No Known Allergies*] Plan Diagnosis/Plan: Unchanged I have reviewed the history and physical and performed a pertinent physical examination on my patient. No changes have occurred unless specified. Cystoscopy. Bladder biopsies. Discussed risks to include but not limited to, blood in the urine, burning with urination, urgency. Time Spent With Patient Time: Total time managing care of this patient today ____ minutes.
--- NOTE | 2024-06-26 10:38 | W.PM.OPN ---
Operative Note Operative Note Date of Service: 06/26/24 Narrative: PREOP DIAGNOSIS: Bladder cancer POSTOP DIAGNOSIS: Bladder cancer PROCEDURE: Cystoscopy bladder biopsies, fulgaration bladder lesion SURGEON: Zander Okeefe MD ANESTHESIA: General Findings: Small erythematous lesion lateral to the right bruna trigone less than 1 cm Details of procedure: The patient was brought into the operating room placed on the OR table in supine position. Ancef 2 g IV. General anesthesia was administered. The patient was repositioned into lithotomy position, prepped and draped in the usual sterile fashion. Time-out was done per protocol. A 22 fr cystoscope was placed transurethrally into the bladder. The bladder was visualized with both the 30 degree and 70 degree lens The right and left ureteral orifices were visualized. Lateral to the right bruna trigone there was a small erythematous lesion 3-4 mm. Using the flexible biopsy forceps the lesion was removed the base of the lesion was fulgurated. Random bladder biopsies were done at the posterior wall left lateral wall and dome. 2% lidocaine urojet was passed transurethrally into the bladder. The patient was brought out of anesthesia and taken to recovery in stable condition. Complications: None EBL: minimal Drains: none
[2024-06-26 10:41] VITALS: BP 123/74; PULSE 74; RESP 16; TEMP 36.6; O2SAT 98
[2024-06-26 10:46] VITALS: BP 131/71; PULSE 67; RESP 18; O2SAT 96
[2024-06-26 10:51] VITALS: BP 105/69; PULSE 58; RESP 18; O2SAT 96
[2024-06-26 10:56] VITALS: BP 109/76; PULSE 71; RESP 18; TEMP 36.6; O2SAT 98
[2024-06-26] MEDS: Phenazopyridine HCL 200 MG TABLET PO (11:17)
== END 2024-06-26 11:25 | disposition home or self-care (01) ==
PROVIDERS: PCP Internal Medicine; Visit Provider Urology
PROC: (CPT 52234; principal; 2024-06-26 09:30)
DX: C67.9 Malignant neoplasm of bladder, unspecified (principal); N30.20 Other chronic cystitis without hematuria; N40.0 Benign prostatic hyperplasia without lower urinary tract symptoms; N39.43 Post-void dribbling; E78.00 Pure hypercholesterolemia, unspecified; J45.909 Unspecified asthma, uncomplicated; F20.9 Schizophrenia, unspecified; Z80.0 Family history of malignant neoplasm of digestive organs; F19.11 Other psychoactive substance abuse, in remission; Z87.828 Personal history of other (healed) physical injury and trauma; Z79.899 Other long term (current) drug therapy; F17.210 Nicotine dependence, cigarettes, uncomplicated; Z98.890 Other specified postprocedural states
CPT/HCPCS: 52234; 88305; J0690; J2003; J2704; J3010

== ENCOUNTER → 2024-06-26 08:01 | Outpatient (BNV) | payer OTHER, SELFPAY | PROVIDERS: PCP Internal Medicine; Visit Provider Urology | DX: N30.20 Other chronic cystitis without hematuria (principal) | CPT/HCPCS: 52224 ==

== ENCOUNTER 2024-07-16 15:16 | Outpatient (AMB) | payer OTHER, SELFPAY ==
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
== END 2024-07-16 15:53 | disposition home or self-care (01) ==
PROVIDERS: PCP Internal Medicine; Visit Provider Urology
DX: C67.9 Malignant neoplasm of bladder, unspecified (principal)
CPT/HCPCS: 99214

== ENCOUNTER → 2024-07-16 15:16 | Outpatient (BNVA) | payer OTHER, SELFPAY | PROVIDERS: PCP Internal Medicine; Visit Provider Urology | DX: C67.9 Malignant neoplasm of bladder, unspecified (principal) | CPT/HCPCS: 81003; 99212 ==

== ENCOUNTER 2024-08-31 06:06 | Outpatient (REF) | payer OTHER, SELFPAY ==
[2024-08-31 07:50] LABS: Alanine Aminotransferase 46 U/L (0-40); Albumin Level 3.9 g/dL (3.5-5.0); Alkaline Phosphatase 78 U/L (39-117); Anion Gap 9 (12-20); Aspartate Amino Transferase 29 U/L (5-37); Bilirubin Total 0.3 mg/dL (0.0-1.0); Blood Urea Nitrogen 23 mg/dL (9-16); Calcium 9.2 mg/dL (8.4-10.2); Carbon Dioxide 29 mmol/L (22-29); Chloride 108 mmol/L (96-108); Cholesterol 194 mg/dL (<200); Estimated Glomerular Filt Rate > 60; Glucose Random 72 mg/dL (60-115); HDL Cholesterol 41 mg/dL (>40); LDL Cholesterol Calculated 131 mg/dL (<100); Potassium 4.4 mmol/L (3.3-5.1); Sodium 142 mmol/L (135-145); Total Protein 7.2 g/dL (6.5-8.0); Triglycerides 110 mg/dL (<150)
[2024-08-31 08:57] LABS: HBS Num1 1.82 mIU/mL (0-7.99); HBc Num1 10.82 S/CO (0.00-0.79); HBsAGNum1 0.33 S/CO (0.00-0.99); Hepatitis B Surface Antigen Negative (Negative); ~HepC Num1 12.99 S/CO (0.00-0.79); ~Hepatitis B Surface Antibody NONREACTIVE (Nonreactive); ~Hepatitis C Antibody Reactive (Nonreactive)
[2024-08-31 09:40] LABS: HBc Num3 10.82 S/CO; Hepatitis B Core Antibody Reactive (Nonreactive)
[2024-09-01 22:24] LABS: Hepatitis B Core Antibody IgM NON-REACTIVE (NON-REACTIVE)
[2024-09-02 13:18] LABS: HCV RNA PCR Qn 12200000 IU/mL (NOT DETECTED); HCV RNA PCR Qn 7.09 Log IU/mL (NOT DETECTED)
[2024-09-07 18:28] LABS: HCV Genotype LiPA 2
== END 2024-08-31 06:07 | disposition home or self-care (01) ==
LOC: HO.LAB 06:06
PROVIDERS: PCP Internal Medicine; Visit Provider Internal Medicine
DX: R79.89 Other specified abnormal findings of blood chemistry (principal); E78.00 Pure hypercholesterolemia, unspecified; Z11.59 Encounter for screening for other viral diseases; Z72.89 Other problems related to lifestyle
CPT/HCPCS: 36415; 80053; 80061; 86704; 86705; 86706; 86803; 87340; 87522; 87902

== ENCOUNTER 2024-09-03 14:07 | Outpatient (AMB) | payer OTHER, SELFPAY ==
[2024-09-03 14:10] VITALS: BP 102/60; PULSE 64; O2SAT 98; BMI 18.7
--- NOTE | 2024-09-03 14:10 | A.OFFPC_ITS ---
Vital Signs 09/03/24 14:10 Height 5 ft 11 in Weight 134 lb BMI 18.7 BP 102/60 Blood Pressure Location Lt brachial Pulse 64 Pulse Source Pulse Oximeter Pulse Oximetry (%) 98 Oxygen Delivery Method Room Air Intake Visit Reasons: LFT elevated Allergies No Known Allergies [No Known Allergies*] Allergy (Verified 09/03/24 14:12) Tobacco use date assessed: 09/03/24 Dental Screening Dental Screen Date: 09/03/24 Did you have a dental visit in the last 12 months?: Yes Did you have a dental problem in the last 6 months where you did not have access to dental care?: No Was dental information given to patient?: Patient has dentist HPI LFT elevated HPI Details The patient is a 44-year-old male presenting with a follow-up visit primarily for the management of urinary bladder cancer. The patient has previously undergone a procedure and is currently under surveillance with chemotherapy injections. He ceased smoking in May, which is essential for his cancer management. The patient is also managing hepatitis infections; tests revealed elevated liver numbers leading to a diagnosis of Hepatitis C. The viral load for Hepatitis C is noted to be approximately 12 million, necessitating referral to gastroenterology for treatment, which has shown a potential 95% cure rate. Concurrently, the patient has Hepatitis B, which is inactive but requires long-term suppressive treatment to prevent liver cancer, due to family history of liver cancer from hepatitis B. Additionally, hyperlipidemia is improving under treatment, with recent test results showing a reduction in total cholesterol from 224 to 194 and LDL from 160 to 131 since November. The patient also reports knee pain, attributed to discomfort from a metallic component in the knee brace he uses, which provides incomplete support. He seeks a prescription for an appropriate knee brace with metal to stabilize his knee. FORMERLY [facility], [facility] Medical History Annual physical exam Constipation Underweight Hematuria Urinary dribbling Gross hematuria Abnormal urine cytology Preop testing Bladder mass Family history of colorectal cancer Asthma Polysubstance abuse GERD (gastroesophageal reflux disease) Schizophrenia Hypercholesterolemia Carpal tunnel syndrome on both sides Tobacco abuse Surgical History Hx of esophagogastroduodenoscopy Hx of colonoscopy History of surgery of head History of lumbar surgery H/O hand surgery History of hip surgery H/O left knee surgery H/O right wrist surgery Family History Father Colon cancer Mother Diabetes Paternal Grandfather Gallbladder cancer Paternal Aunt Colon cancer Gallbladder cancer Breast cancer Leukemia Paternal Aunt Cancer Social History Housing: Apartment Alcohol intake: never Patient Tobacco Use Status: Current everyday Tobacco user Tobacco use type: Cigarette Cigarettes Per Day: 0.5 Years Smoked: not ready to stop e-Cigarette/Vaping Use: Never Used Second Hand Smoke Exposure: Yes Substance Use Type: Marijuana service: No Current occupational status: disabled Cognitive needs: No Hearing needs: No Vision needs: No Questionnaire PHQ-9 Over the last 2 weeks, how often have you been bothered by any of the following problems? 1. Little interest or pleasure in doing things: not at all 2. Feeling down, depressed, or hopeless: several days 3. Trouble falling or staying asleep, or sleeping too much: more than half the days 4. Feeling tired or having little energy: several days 5. Poor appetite or overeating: more than half the days 6. Feeling bad about yourself - or that you are a failure or have let yourself or your family down: not at all 7. Trouble concentrating on things, such as reading the newspaper or watching television: not at all 8. Moving or speaking so slowly that other people could have noticed. Or the opposite - being so fidgety or restless that you have been moving around a lot more than usual: several days 9. Thoughts that you would be better off or of hurting yourself in some way: not at all Total score: 7 Source: Developed by Drs. Valente Garcia, Sienna Jin, Thanh Rae and colleagues, with an educational vince from [employer]. Thrive Questionnaire Date Thrive assessed: 09/03/24 I am a: Patient What is your living situation today?: I have a steady place to live Within the past 12 months, did the food you bought not last and you didn't have the money to get more?: Sometimes True Within the past 12 months, did you worry whether your food would run out before you got money to buy more?: Sometimes True Do you have trouble paying for medicines?: No Do you have trouble getting transportation to medical appointments?: No Do you have trouble paying your heating and electricity bill?: No Do you have trouble taking care of your child, family member or friend?: No Do you have trouble with day-to-day activities such as bathing, preparing meals, shopping, managing finances, etc.?: No Are you currently unemployed and looking for a job?: I choose not to answer this question Are you interested in more education?: No Please select the resources that you would like help with: Utilities Currently or been in a relationship where the following occur: No concerns reported THRIVE Score: 2 AUDIT C Alcohol Use Questionnaire (AUDIT-C) 1. How often do you have a drink containing alcohol?: Never 3. How often do you have six or more drinks on one occasion?: Never Total Score: 0 JAYDEN-7 AMB Questionnaire JAYDEN-7 Date JAYDEN - 7 assessed: 05/07/24 Feeling nervous, anxious, or on edge: 0 = Not at all Not being able to stop or control worryin = Not at all Worrying too much about different things: 0 = Not at all Trouble relaxin = Not at all Being so restless that it is hard to sit still: 0 = Not at all Becoming easily annoyed or irritable: 0 = Not at all Feeling afraid as if something awful might happen: 0 = Not at all Total JAYDEN-7 score (0-4 normal; 5-9 mild; 10-14 moderate; 15-21 severe): 0 Source: Developed by Drs. Valente Garcia, Sienna Jin, Thanh Rae and colleagues, with an educational vince from [employer]. JAYDEN-7 Assessment Billing JAYDEN-7 Assessment Tool: JAYDEN-7 Assessment 71201 Physical exam (Primary Care) Vital Signs: Last Vital Signs Pulse 64 09/03/24 14:10 BP 102/60 09/03/24 14:10 Pulse Ox 98 09/03/24 14:10 Oxygen Delivery Method Room Air 09/03/24 14:10 BMI result Body Mass Index 18.7 Tobacco/Smoking Status: Tobacco use Status Tobacco use date assessed 09/03/24 09/03/24 14:15 Patient Tobacco Use Status Current everyday Tobacco 09/03/24 14:15 Tobacco use type Cigarette 09/03/24 14:15 e-Cigarette/Vaping Use Never Used 09/03/24 14:15 PHQ-9: PHQ-9 Score PHQ-9: Total score 7 09/03/24 14:32 Thrive Assessment: Date of Thrive Assessment Date Thrive assessed 09/03/24 09/03/24 14:15 Currently or been in a relationship where the following occur: No concerns reported Const General: alert; No acute distress Eyes Conjunctivae: conjunctivae normal Resp Auscultation: clear to auscultation bilaterally Cardio Rate: regular rate Rhythm: regular rhythm GI Inspection: Yes normal to inspection Extrem General: Yes normal to inspection and No edema Coding Level of Care Code Est Pt Level 4 (75522) Diagnoses Malignant neoplasm of urinary bladder, unspecified site C67.9 Bladder location: unspecified site Hepatitis C B19.20 Nicotine dependence F17.200 Polysubstance abuse F19.10 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 Hypercholesterolemia E78.00 Tobacco abuse Z72.0 Hepatitis B B19.10 Left knee pain M25.562 Additional Codes JAYDEN-7 Assessment Billing - JAYDEN-7 Assessment Tool: JAYDEN-7 Assessment [id number] ([id number]) Assessment & Plan Assessment & Plan (1) Urinary bladder cancer: Comment: 11/2023 Code(s): C67.9 - Malignant neoplasm of bladder, unspecified Category: Medical Qualifiers: Bladder location: unspecified site Qualified Code(s): C67.9 - Malignant neoplasm of bladder, unspecified (2) Hepatitis C: Code(s): B19.20 - Unspecified viral hepatitis C without hepatic coma Category: Medical (3) Nicotine dependence: Comment: stopped 05/2024 Code(s): F17.200 - Nicotine dependence, unspecified, uncomplicated Category: Medical (4) Polysubstance abuse: Code(s): F19.10 - Other psychoactive substance abuse, uncomplicated Category: Medical (5) Schizophrenia: Comment: [facility] counselling (03/2022) Code(s): F20.9 - Schizophrenia, unspecified Category: Medical Qualifiers: Schizophrenia type: disorganized schizophrenia Qualified Code(s): F20.1 - Disorganized schizophrenia (6) Hypercholesterolemia: Code(s): E78.00 - Pure hypercholesterolemia, unspecified Category: Medical (7) Tobacco abuse: Comment: stopped 05/2024 Code(s): Z72.0 - Tobacco use Category: Medical (8) Hepatitis B: Code(s): B19.10 - Unspecified viral hepatitis B without hepatic coma Category: Medical (9) Left knee pain: Code(s): M25.562 - Pain in left knee Category: Medical Plan: asking for a brace and will get back to me regarding name of the brace Plan - Urinary Bladder Cancer: Continue with chemotherapy injections as per oncology guidance. - Hepatitis C Infection: Referral to gastroenterology for initiation of ozsjz-jz-hps-art antiviral regimen with expectations of significant viral load reduction and potential cure. - Hepatitis B inactive): Referral to gastroenterology to discuss long-term suppressive therapy to minimize risk for liver cancer, given family history. - Hyperlipidemia: Continue current management with atorvastatin 20 mg as levels have improved and are approaching targets. - Knee Discomfort: Advise patient to visit a medical supply store to identify and obtain an appropriate knee brace, after which a prescription will be provided. Orders: Referrals Gastroenterology Referral B19.10 - Unspecified viral hepatitis B without hepatic coma, B19.20 - Unspecified viral hepatitis C without hepatic coma
== END 2024-09-03 14:42 | disposition home or self-care (01) ==
PROVIDERS: PCP Internal Medicine; Visit Provider Internal Medicine
DX: F19.10 Other psychoactive substance abuse, uncomplicated (principal); F20.1 Disorganized schizophrenia; C67.9 Malignant neoplasm of bladder, unspecified; B19.20 Unspecified viral hepatitis C without hepatic coma; F17.200 Nicotine dependence, unspecified, uncomplicated; E78.00 Pure hypercholesterolemia, unspecified; Z72.0 Tobacco use; B19.10 Unspecified viral hepatitis B without hepatic coma; M25.562 Pain in left knee

== ENCOUNTER → 2024-09-03 14:07 | Outpatient (BNVA) | payer OTHER, SELFPAY | PROVIDERS: PCP Internal Medicine; Visit Provider Internal Medicine | DX: C67.9 Malignant neoplasm of bladder, unspecified (principal); B19.20 Unspecified viral hepatitis C without hepatic coma; F19.10 Other psychoactive substance abuse, uncomplicated; F20.1 Disorganized schizophrenia; E78.00 Pure hypercholesterolemia, unspecified; B19.10 Unspecified viral hepatitis B without hepatic coma; M25.562 Pain in left knee; F17.200 Nicotine dependence, unspecified, uncomplicated; Z71.6 Tobacco abuse counseling | CPT/HCPCS: 96127; 99212 ==

== ENCOUNTER 2024-10-15 10:14 | Outpatient (REF) | payer OTHER, SELFPAY ==
--- OUTSIDE RECORDS SUMMARY | 2024-10-15 13:19 | XMS_ITS | Continuity of Care Document ---
Author Organization [employer] Address [address] [place] [address] Phone Care Team Providers Care Phd Intern Name Role Phone Mary FERZaynab Unavailable Unavaila [...] Visit Diagnoses Date Provider Diagnostic Evaluation Castillo [facility], [address] [place] [address], [facility], tel:[phone] OP A NBrit 75 NMR 018 Parissaumya Zaynab. [address] [place] [address], [id number], . tel:[phone] As per patient privacy policy some of the clinical information may not be visible. Family History Family Member Type Diagnosis Age At Onset No Information Payers Payer name Insurance type Covered democrat ID Authorlindseya tiyassine(s) Medicare MB [id number] Nickiangel Leonard [id number] Social History Type Description Quantity Date Captured [...]
[2024-10-15 16:45] LABS: Urine Cytology See Pathology rpt
== END 2024-10-15 10:15 | disposition home or self-care (01) ==
LOC: HO.LAB 10:14
PROVIDERS: PCP Internal Medicine; Visit Provider Urology
DX: N39.0 Urinary tract infection, site not specified (principal); C67.9 Malignant neoplasm of bladder, unspecified; Z13.9 Encounter for screening, unspecified; R32 Unspecified urinary incontinence
CPT/HCPCS: 52000; 81003; 88112

== ENCOUNTER 2024-10-15 10:14 | Outpatient (AMB) | payer OTHER, SELFPAY ==
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
--- OUTSIDE RECORDS SUMMARY | 2024-10-15 11:26 | XMS_ITS | Continuity of Care Document ---
Author Organization [employer] Address [address] [place] [address] Phone Care Team Providers Care Branding Specialist Name Role Phone Mary FERZaynab Unavailable Unavaila [...] Visit Diagnoses Date Provider Diagnostic Evaluation Castillo [facility], [address] [place] [address], [facility], tel:[phone] OP A NBrit 75 NMR 018 Parissaumya Zaynab. [address] [place] [address], [id number], . tel:[phone] As per patient privacy policy some of the clinical information may not be visible. Family History Family Member Type Diagnosis Age At Onset No Information Payers Payer name Insurance type Covered democrat ID Authorlindseya tiyassine(s) Medicare MB [id number] Nickiangel Leonard [id number] Social History Type Description Quantity Date Captured [...]
== END 2024-10-15 11:19 | disposition home or self-care (01) ==
PROVIDERS: PCP Internal Medicine; Visit Provider Urology
DX: C67.9 Malignant neoplasm of bladder, unspecified (principal); N40.0 Benign prostatic hyperplasia without lower urinary tract symptoms; R32 Unspecified urinary incontinence; Z13.9 Encounter for screening, unspecified
CPT/HCPCS: 52000

== ENCOUNTER → 2024-10-15 13:04 | Outpatient (BNV) | payer OTHER, SELFPAY | PROVIDERS: PCP Internal Medicine; Visit Provider Internal Medicine Medical Oncology | DX: C67.9 Malignant neoplasm of bladder, unspecified (principal); B19.20 Unspecified viral hepatitis C without hepatic coma | CPT/HCPCS: 99204 ==

== ENCOUNTER 2024-11-14 09:16 | Outpatient (AMB) | payer OTHER, SELFPAY ==
--- NOTE | 2024-11-14 09:17 | A.OFFVIS_ITS ---
Vital Signs 11/14/24 09:18 Height 5 ft 11 in Weight 130 lb 8.218 oz BMI 18.2 BP 106/58 L Blood Pressure Location Rt brachial Position Sitting Pulse 64 Pulse Source Pulse Oximeter Pulse Oximetry (%) 98 Oxygen Delivery Method Room Air Intake Visit Reasons: discuss hep cjaciel pt Intake Note: ESTABLISHED PATIENT for liver abn, hep c consult. Bianca pt, ERICA 2023. Chief Complaint; No GI sx or concerns at this time. Pt reports that he feels normal at this time and is here for the consultation only. Advertising Photographer Required: No Accompanied by: Self / Same As Patient Allergies No Known Allergies [No Known Allergies*] Allergy (Verified 11/14/24 09:18) HPI HPI discuss hep cjaciel pt: Details: LAST VISIT: Status post colonoscopy Diverticulosis Family history of colorectal cancer Gastritis Plan Upper endoscopy and colonoscopy results discussed with patient. Patient will continue omeprazole on as needed basis. Patient reports that he has no epigastric pain or no acid reflux. Avoiding dietary triggers and reports that he is feeling better. Colonoscopy in 5 years due to family history of colorectal cancer, sooner if clinically necessary. Patient was encouraged to eat high-fiber diet. Continue to drink protein shakes. Patient will follow-up in our office on as needed basis. He is agreeable to this plan and verbalizes understanding of instructions. He was given the opportunity to ask questions and all questions answered. ? Thank you for allowing me to participate in his care Medications Discontinued omeprazole Discontinued Reason: Doctor's Order 20 mg PO DAILY 30 caps 3RF K21.9 TODAY'S VISIT: Patient is here today as a request of his oncologist. Patient was found to have bladder cancer and treated with 6 rounds of chemo. Patient reports that he needs to change his treatment. His oncologist is sending him to us for treatment of hep C. Patient previously treated for hep C, recent vital load very high genotype 2. HIV testing not done. Patient reports since his chemo treatment he has been not having much of appetite. Weight has been stable, the same as last seen after his colonoscopy. Patient denies any melena, hematochezia, unintentional weight loss or ribbon like stools. Occasional dyspe psia without dysphagia or odynophagia. Patient is taking Zofran as needed. [facility] Medical History (Updated 11/14/24 @ 19:58 by Kerline Bernstein [facility]) Hepatitis B Annual physical exam Constipation Underweight Hematuria Urinary dribbling Gross hematuria Abnormal urine cytology Preop testing Bladder mass Family history of colorectal cancer Asthma Polysubstance abuse GERD (gastroesophageal reflux disease) Schizophrenia Hypercholesterolemia Carpal tunnel syndrome on both sides Tobacco abuse Surgical History Hx of esophagogastroduodenoscopy Hx of colonoscopy History of surgery of head History of lumbar surgery H/O hand surgery History of hip surgery H/O left knee surgery H/O right wrist surgery Family History Father Colon cancer Mother Diabetes Paternal Grandfather Gallbladder cancer Pancreas cancer Paternal Aunt Colon cancer Gallbladder cancer Leukemia Breast cancer Paternal Aunt Cancer Social History Housing: Apartment Alcohol intake: never Patient Tobacco Use Status: Current everyday Tobacco user Tobacco use type: Cigarette Years Smoked: not ready to stop e-Cigarette/Vaping Use: Never Used Second Hand Smoke Exposure: Yes Substance Use Type: Marijuana service: No Current occupational status: disabled Cognitive needs: No Hearing needs: No Vision needs: No Review of Systems Const Denies weight gain and Denies weight loss ENT Reports no additional complaints, Denies dysphagia and Denies odynophagia Card Reports no additional complaints Resp Reports no additional complaints GI Reports abdominal pain, Denies belching, Denies melena, Reports bloating, Denies change in bowel habits, Denies dysphagia, Denies excessive flatus, Denies dyspepsia, Reports heartburn, Denies diarrhea, Denies loose stools, Denies nausea, Denies odynophagia and Denies vomiting Reports no additional complaints Musc Reports no additional complaints Neuro Reports no additional complaints Psych Reports no additional complaints Endo Reports no additional complaints Physical Exam Vital Signs: Last Vital Signs Pulse 64 11/14/24 09:18 BP 106/58 L 11/14/24 09:18 Pulse Ox 98 11/14/24 09:18 Oxygen Delivery Method Room Air 11/14/24 09:18 BMI result Body Mass Index 18.2 Const General: healthy appearing and no acute distress Nutritional Appearance: underweight Orientation/consciousness: patient oriented x3 Resp Effort & Inspection: normal respiratory effort, able to speak in complete sentences, no tracheal deviation and symmetric chest movement Auscultation: clear to auscultation bilaterally Cardio Rate: regular rate GI Inspection: No distended Palpation (GI): Soft to palpation, not firm, nontender and No hepatosplenomegaly present Auscultation: normal bowel sounds General: Yes no CVA tenderness Back/Spine/Pelvis Back: no CVA tenderness Skin General skin exam: elasticity normal, turgor normal and dry skin Neuro General: patient oriented x3 Psych Appearance: grossly normal Mental Status: mental status grossly normal Assessment & Plan Assessment & Plan (1) Hepatitis C: Code(s): B19.20 - Unspecified viral hepatitis C without hepatic coma Category: Medical Qualifiers: Viral hepatitis chronicity: chronic Hepatic coma status: without hepatic coma Qualified Code(s): B18.2 - Chronic viral hepatitis C (2) Transaminitis: Code(s): R74.01 - Elevation of levels of liver transaminase levels (3) GERD (gastroesophageal reflux disease): Code(s): K21.9 - Gastro-esophageal reflux disease without esophagitis Category: Medical Qualifiers: Esophagitis presence: without esophagitis Qualified Code(s): K21.9 - Gastro-esophageal reflux disease without esophagitis (4) Nausea: Code(s): R11.0 - Nausea Plan Patient will be started on Epclusa. HIV testing and if positive patient will need to be referred to Infectious Disease for treatment. Hepatitis A antibod ies, patient will need to get vaccine next visit if negative. Will hold off on sending PPI is contraindicated while taking a foods fast, however patient will have acid reflux that continues despite changing his diet we can order H2 ben. Repeat viral load in 4 weeks and liver panel as patient has a history of transaminitis. Patient will follow-up in the office in 4 weeks, sooner on as needed basis. Patient is agreeable to this plan and verbalizes understanding of instructions. He was given the opportunity to ask questions and all questions answered. Thank you for allowing to participate in his care Orders: Orders Hepatitis C Viral Load 4 Weeks Z86.19 - Personal history of other infectious and parasitic diseases Liver Panel 4 Weeks R74.01 - Elevation of levels of liver transaminase levels Hepatitis A IgG Today B18.2 - Chronic viral hepatitis C HIV Ab/Ag Today R79.89 - Other specified abnormal findings of blood chemistry Hepatitis A IgM Today B19.20 - Unspecified viral hepatitis C without hepatic coma Medications: New sofosbuvir-velpatasvir 400-100 mg (Epclusa) 1 tab PO DAILY 12 weeks 84 tabs 0RF Coding Level of Care Code Est Pt Level 4 (41082) Complex EM visit Add On G2211 Diagnoses Chronic hepatitis C without hepatic coma B18.2 Viral hepatitis chronicity: chronic Hepatic coma status: without hepatic coma Transaminitis R74.01 Gastroesophageal reflux disease without esophagitis K21.9 Esophagitis presence: without esophagitis Nausea R11.0 Time Spent (min) 45 Comment 30 minutes spent with patient and additional 15 minutes spent reviewing his records
[2024-11-14 09:18] VITALS: BP 106/58; PULSE 64; O2SAT 98; BMI 18.2
--- OUTSIDE RECORDS SUMMARY | 2024-11-14 10:17 | XMS_ITS | Continuity of Care Document ---
Author Organization [employer] Address [address] [place] [address] Phone Care Team Providers Care Mobile Home Mechanic Name Role Phone Mary FERZaynab Unavailable Unavaila [...] Diagnoses Date Provider Diagnostic Evaluation Castillo [facility], [address] [place] [address], [facility], tel:[phone] OP A NBrit 75 NMR 018 Parissaumya Zaynab. [address] [place] [address], [id number], . tel:[phone] As per patient privacy policy some of the clinical information may not be visible. Family History Family Member Type Diagnosis Age At Onset No Information Payers Payer name Insurance type Covered republican ID Authorlindseya tiyassine(s) Medicare MB [id number] Nickiangel Leonard [id number] Social History Type Description Quantity Date Captured [...]
== END 2024-11-14 10:10 | disposition home or self-care (01) ==
LOC: HO.HGI 09:16
PROVIDERS: PCP Internal Medicine; Visit Provider Nurse Practitioner Family
DX: B18.2 Chronic viral hepatitis C (principal); R74.01 Elevation of levels of liver transaminase levels; K21.9 Gastro-esophageal reflux disease without esophagitis; R11.0 Nausea
CPT/HCPCS: 99214; G2211

== ENCOUNTER → 2024-11-14 09:16 | Outpatient (BNVA) | payer OTHER, SELFPAY | PROVIDERS: PCP Internal Medicine; Visit Provider Nurse Practitioner Family | DX: B18.2 Chronic viral hepatitis C (principal); R74.01 Elevation of levels of liver transaminase levels; K21.9 Gastro-esophageal reflux disease without esophagitis; R11.0 Nausea | CPT/HCPCS: 99212 ==

== ENCOUNTER 2024-12-03 13:55 | Outpatient (AMB) | payer OTHER, SELFPAY ==
--- NOTE | 2024-12-03 13:59 | MHC.PC.OV ---
Vital Signs 12/03/24 14:02 Height 5 ft 11 in Weight 127 lb 6 oz BMI 17.8 BP 102/58 L Blood Pressure Location Lt brachial Position Sitting Pulse 96 Pulse Source Pulse Oximeter Temp 97.8 F Pulse Oximetry (%) 93 Oxygen Delivery Method Room Air Intake Visit Reasons: hepatitis B and C Allergies No Known Allergies [No Known Allergies*] Allergy (Verified 12/03/24 14:07) Tobacco use date assessed: 09/03/24 Dental Screening Dental Screen Date: 09/03/24 Did you have a dental visit in the last 12 months?: Yes Did you have a dental problem in the last 6 months where you did not have access to dental care?: No Was dental information given to patient?: Patient has dentist HPI hepatitis B and C HPI Details has not started epclusa awaiting insurance. stopped cigarettes and L knee wit a hinged brace and doing good PFSH Medical History Hepatitis B Annual physical exam Constipation Underweight Hematuria Urinary dribbling Gross hematuria Abnormal urine cytology Preop testing Bladder mass Family history of colorectal cancer Asthma Polysubstance abuse GERD (gastroesophageal reflux disease) Schizophrenia Hypercholesterolemia Carpal tunnel syndrome on both sides Tobacco abuse Surgical History Hx of esophagogastroduodenoscopy Hx of colonoscopy History of surgery of head History of lumbar surgery H/O hand surgery History of hip surgery H/O left knee surgery H/O right wrist surgery Family History Father Colon cancer Mother Diabetes Paternal Grandfather Gallbladder cancer Pancreas cancer Paternal Aunt Colon cancer Gallbladder cancer Leukemia Breast cancer Paternal Aunt Cancer Social History Housing: Apartment Alcohol intake: never Patient Tobacco Use Status: Current everyday Tobacco user Tobacco use type: Cigarette Cigarettes Per Day: 0.5 Years Smoked: not ready to stop Packs per year/per ci.00 e-Cigarette/Vaping Use: Never Used Second Hand Smoke Exposure: Yes Substance Use Type: Marijuana service: No Current occupational status: disabled Cognitive needs: No Hearing needs: No Vision needs: No Questionnaire PHQ-9 Over the last 2 weeks, how often have you been bothered by any of the following problems? 1. Little interest or pleasure in doing things: not at all 2. Feeling down, depressed, or hopeless: several days 3. Trouble falling or staying asleep, or sleeping too much: more than half the days 4. Feeling tired or having little energy: several days 5. Poor appetite or overeating: more than half the days 6. Feeling bad about yourself - or that you are a failure or have let yourself or your family down: not at all 7. Trouble concentrating on things, such as reading the newspaper or watching television: not at all 8. Moving or speaking so slowly that other people could have noticed. Or the opposite - being so fidgety or restless that you have been moving around a lot more than usual: several days 9. Thoughts that you would be better off or of hurting yourself in some way: not at all Total score: 7 Source: Developed by Drs. Valente Garcia, Sienna Jin, Thanh Rae and colleagues, with an educational vince from [employer]. Thrive Questionnaire Date Thrive assessed: 09/03/24 I am a: Patient What is your living situation today?: I have a steady place to live Within the past 12 months, did the food you bought not last and you didn't have the money to get more?: Sometimes True Within the past 12 months, did you worry whether your food would run out before you got money to buy more?: Sometimes True Do you have trouble paying for medicines?: No Do you have trouble getting transportation to medical appointments?: No Do you have trouble paying your heating and electricity bill?: No Do you have trouble taking care of your child, family member or friend?: No Do you have trouble with day-to-day activities such as bathing, preparing meals, shopping, managing finances, etc.?: No Are you currently unemployed and looking for a job?: I choose not to answer this question Are you interested in more education?: No Please select the resources that you would like help with: Utilities Currently or been in a relationship where the following occur: No concerns reported THRIVE Score: 2 AUDIT C Alcohol Use Questionnaire (AUDIT-C) 1. How often do you have a drink containing alcohol?: Never 3. How often do you have six or more drinks on one occasion?: Never Total Score: 0 JAYDEN-7 AMB Questionnaire JAYDEN-7 Date JAYDEN - 7 assessed: 12/03/24 Feeling nervous, anxious, or on edge: 0 = Not at all Not being able to stop or control worryin = Not at all Worrying too much about different things: 0 = Not at all Trouble relaxin = Not at all Being so restless that it is hard to sit still: 0 = Not at all Becoming easily annoyed or irritable: 0 = Not at all Feeling afraid as if something awful might happen: 0 = Not at all Total JAYDEN-7 score (0-4 normal; 5-9 mild; 10-14 moderate; 15-21 severe): 0 Source: Developed by Drs. Valente Garcia, Sienna Jin, Thanh Rae and colleagues, with an educational vince from [employer]. Physical exam (Primary Care) Vital Signs: Last Vital Signs Temp 97.8 F 12/03/24 14:02 Pulse 96 12/03/24 14:02 BP 102/58 L 12/03/24 14:02 Pulse Ox 93 12/03/24 14:02 Oxygen Delivery Method Room Air 12/03/24 14:02 BMI result Body Mass Index 17.8 Tobacco/Smoking Status: Tobacco use Status Tobacco use date assessed 09/03/24 12/03/24 14:02 Patient Tobacco Use Status Current everyday Tobacco 12/03/24 14:02 Tobacco use type Cigarette 12/03/24 14:02 e-Cigarette/Vaping Use Never Used 12/03/24 14:02 PHQ-9: PHQ-9 Score PHQ-9: Total score 7 12/03/24 14:28 Thrive Assessment: Date of Thrive Assessment Date Thrive assessed 09/03/24 12/03/24 14:02 Currently or been in a relationship where the following occur: No concerns reported Const General: alert; No acute distress Eyes Conjunctivae: conjunctivae normal Resp Auscultation: clear to auscultation bilaterally Cardio Rate: regular rate Rhythm: regular rhythm GI Inspection: Yes normal to inspection Extrem General: Yes normal to inspection and No edema Coding Level of Care Code Est Pt Level 4 (06885) Diagnoses Malignant neoplasm of urinary bladder, unspecified site C67.9 Bladder location: unspecified site Nicotine dependence F17.200 Gastroesophageal reflux disease without esophagitis K21.9 Esophagitis presence: without esophagitis 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 Hypercholesterolemia E78.00 Assessment & Plan Assessment & Plan (1) Urinary bladder cancer: Comment: 11/2023 Code(s): C67.9 - Malignant neoplasm of bladder, unspecified Category: Medical Qualifiers: Bladder location: unspecified site Qualified Code(s): C67.9 - Malignant neoplasm of bladder, unspecified Plan: Patient promised presently follows up with Hematology-Oncology and Urology having cystoscopy surveillance (2) Nicotine dependence: Comment: stopped 05/2024 Code(s): F17.200 - Nicotine dependence, unspecified, uncomplicated Category: Medical Plan: Patient has stopped smoking so far has been doing good. (3) GERD (gastroesophageal reflux disease): Code(s): K21.9 - Gastro-esophageal reflux disease without esophagitis Category: Medical Qualifiers: Esophagitis presence: without esophagitis Qualified Code(s): K21.9 - Gastro-esophageal reflux disease without esophagitis Plan: Avoid the foods that causes that usually spicy foods, tomato products, juices, coffee, soda and foods that your sensitive to. After eating do not lie down, allow 3-4 hours before in lie down. And keep the head of bed above 30 degrees to avoid the acid from going up. (4) Schizophrenia: Comment: [facility] counselling (03/2022) Code(s): F20.9 - Schizophrenia, unspecified Category: Medical Qualifiers: Schizophrenia type: disorganized schizophrenia Qualified Code(s): F20.1 - Disorganized schizophrenia Plan: Continue with counseling and therapy (5) Hypercholesterolemia: Code(s): E78.00 - Pure hypercholesterolemia, unspecified Category: Medical Plan: Avoid fried foods, chicken skin, eggs, butter margarine, pastries and meat. Be it pork or beef they have a lot of cholesterol LDL goal of less than 130 and triglyceride of less than 150. Plan History of Present Illness The patient is a 44-year-old male presenting for a follow-up appointment for continued management of chronic conditions including hypercholesterolemia, urinary bladder cancer, and hepatitis C. He has a notable history of glaucoma, GERD, and polysubstance abuse, which contributes to his complex medical profile. Despite a history of smoking, the patient achieved smoking cessation in May 2024. This is a positive behavior change that reduces further risks, especially given his respiratory use of an albuterol inhaler. His management includes atorvastatin for hypercholesterolemia, with a August 2024 LDL level reading of 131 mg/dL, indicating a need for continued lipid control. For bladder cancer, the patient is under surveillance post-treatment, with hematology oncology oversight and plans for neurology consultation regarding cystoscopy. His hepatitis C management includes antiviral therapy initiation in October. Anemia found in prior lab work requires further monitoring to determine any underlying causative conditions. Health Maintenance - Smoking cessation achieved as of May 2024. - Monitoring of urinary bladder cancer with cystoscopy surveillance. - Current cholesterol management includes an LDL goal of <130 mg/dL. - Evaluation and maintenance of anemia as noted in recent laboratory tests. - Continuing treatment and follow-up for hepatitis C diagnosed in 2023. Social History - Smoking: Patient ceased smoking in May 2024. - Substance Use: History of polysubstance abuse. - Functional Status: Utilizing an albuterol inhaler for respiratory support. Review of Systems - Respiratory: Reports use of albuterol inhaler, denies current tobacco use. - Cardiovascular: Denies current chest pain. - Gastrointestinal: Reports management for gastroesophageal reflux disease. - Hematologic: History of anemia. - Oncology: Under surveillance for urinary bladder cancer. Physical Exam Results - Labs: Anemia noted in results from September 2024 (Hemoglobin 12.7 g/dL, Hematocrit 38.4%). - Tests: Last cholesterol test in August 2024 shows LDL at 131 mg/dL. - Other: Previous colonoscopy conducted in December 2023. Plan The therapeutic approach for managing this complex patient focuses on sustained interdisciplinary efforts to address his chronic conditions. Continuous atorvastatin use targets controlling hypercholesterolemia, aiming for specific LDL and triglyceride levels. Surveillance for bladder cancer, coupled with hematology oncology follow-up and cystoscopy, secures pertinent cancer management. Hepatitis C treatment underway enhances prognosis for decreased viral load as [place] continues. Anemia observations based on recent labs require recurrent monitoring to detect underlying etiology. Smoking cessation represents a critical milestone enhancing longevity against his health challenges. Additionally, the albuterol inhaler remains vital for respiratory management. These comprehensive strategies foster a holistic care plan, supporting health improvements through adherence to therapeutic guidelines and proactive healthcare visits. Patient was informed and verbally consented to the use of an ambient scribe for clinic note documentation during this visit. Discussion Notes During this visit, we reviewed the patient's current medical status and the ongoing interventions for managing his chronic health conditions, including hypercholesterolemia, hepatitis C, and bladder cancer. I discussed the importance of maintaining LDL and triglyceride levels with atorvastatin and lifestyle modifications. The patient agreed to continue with current therapy and regular monitoring. Bladder cancer surveillance was emphasized, with a focus on the importance of regular cytological examinations and continued consults with hematology oncology. Hepatitis C treatment was acknowledged for its significance in reducing potential complications and long-term liver health benefits. Anemia was noted, necessitating vigilance for any symptoms or a need for further diagnostic evaluations. We celebrated the patient's smoking cessation, a monumental step towards improved health outcomes. I recommended the continued use of the albuterol inhaler for respiratory management symptoms. Future visits will include comprehensive reassessments and necessary adjustments to the treatment regimen. Patient Instructions - Continue taking atorvastatin as prescribed for cholesterol management. - Adhere to scheduled follow-up appointments for ongoing bladder cancer monitoring. - Take EPCLUSA as prescribed for Hepatitis C treatment. - Use the albuterol inhaler as needed for respiratory symptoms. - Monitor for signs of anemia, such as increased fatigue or dizziness. - Maintain a healthy lifestyle, including a balanced diet and regular exercise. - Ensure adequate hydration with water intake. - Report any new symptoms or adverse reactions to current medications. - Keep scheduled appointments for routine health evaluations and laboratory investigations. Medications: Refilled multivitamin 1 tab PO DAILY 30 tabs 12RF
[2024-12-03 14:02] VITALS: BP 102/58; PULSE 96; TEMP 36.6; O2SAT 93; BMI 17.8
--- OUTSIDE RECORDS SUMMARY | 2024-12-03 16:09 | XMS_ITS | Continuity of Care Document ---
Author Organization [facility] Address [address] [place] [address] Phone Care Team Providers Care Software Sales Representative Name Role Phone Mary FERZaynab Unavailable Unavaila [...] Diagnoses Date Provider Diagnostic Evaluation Castillo [facility], [address] [place] [address], [facility], tel:[phone] OP A NBrit 75 NMR 018 Parissaumya Zaynab. [address] [place] [address], [id number], . tel:[phone] As per patient privacy policy some of the clinical information may not be visible. Family History Family Member Type Diagnosis Age At Onset No Information Payers Payer name Insurance type Covered democrat ID Authorlindseya tiyassine(s) Medicare MB [id number] Nickiangel Leonard [id number] Social History Type Description Quantity Date Captured [...]
== END 2024-12-03 14:32 | disposition home or self-care (01) ==
LOC: HO.HMCH 13:55
PROVIDERS: PCP Internal Medicine; Visit Provider Internal Medicine
DX: K21.9 Gastro-esophageal reflux disease without esophagitis (principal); C67.9 Malignant neoplasm of bladder, unspecified; F20.1 Disorganized schizophrenia; F17.200 Nicotine dependence, unspecified, uncomplicated; E78.00 Pure hypercholesterolemia, unspecified

== ENCOUNTER → 2024-12-03 13:55 | Outpatient (BNVA) | payer OTHER, SELFPAY | PROVIDERS: PCP Internal Medicine; Visit Provider Internal Medicine | DX: C67.9 Malignant neoplasm of bladder, unspecified (principal); K21.9 Gastro-esophageal reflux disease without esophagitis; F20.1 Disorganized schizophrenia; E78.00 Pure hypercholesterolemia, unspecified; F17.200 Nicotine dependence, unspecified, uncomplicated; Z71.6 Tobacco abuse counseling | CPT/HCPCS: 99212 ==

== ENCOUNTER → 2024-12-26 13:14 | Outpatient (BNVA) | payer OTHER, SELFPAY | PROVIDERS: PCP Internal Medicine; Visit Provider Nurse Practitioner Family ==

== ENCOUNTER 2025-02-11 10:01 | Outpatient (AMB) | payer OTHER, SELFPAY ==
--- OUTSIDE RECORDS SUMMARY | 2017-11-10 10:00 | XMS_ITS | Continuity of Care Document ---
Author Organization [employer] Address [address] [place] [address] Phone Care Team Providers Care Heart Doctor Name Role Phone Mary FERZayanb Unavailable Unavaila ble Allergies, Adverse Reactions, Alerts [...] Visit Diagnoses Date Provider Diagnostic Evaluation Castillo [facility], [address] [place] [address], [facility] [place], tel:[phone] OP A NBrit 75 NMR 018 Parissaumya Zaynab. [address] [place] [address], [id number], . tel:[phone] As per patient privacy policy some of the clinical information may not be visible. Family History Family Member Type Diagnosis Age At Onset No Information Payers Payer name Insurance type Covered democrat ID Authorlindseya tiyassine(s) Medicare [place] [id number] Nickiangel Leonard [id number] Social History Type Description Quantity Date Captured [...]
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
== END 2025-02-11 12:08 | disposition home or self-care (01) ==
LOC: HO.HUSH 10:02
PROVIDERS: PCP Internal Medicine; Visit Provider Urology
DX: C67.9 Malignant neoplasm of bladder, unspecified (principal); Z13.9 Encounter for screening, unspecified
CPT/HCPCS: 52000

== ENCOUNTER → 2025-02-11 10:01 | Outpatient (BNVA) | payer OTHER, SELFPAY | PROVIDERS: PCP Internal Medicine; Visit Provider Urology | DX: C67.9 Malignant neoplasm of bladder, unspecified (principal); F17.210 Nicotine dependence, cigarettes, uncomplicated | CPT/HCPCS: 52000; 81003 ==

== ENCOUNTER 2025-04-23 09:02 | Outpatient (REF) | payer OTHER, SELFPAY ==
--- OUTSIDE RECORDS SUMMARY | 2017-11-10 10:00 | XMS_ITS | Continuity of Care Document ---
Author Organization [employer] Address [address] [place] [address] Phone Care Team Providers Care Collator Operator Name Role Phone Mary FERZaynab Unavailable Unavaila [...] Visit Diagnoses Date Provider Diagnostic Evaluation Castillo [facility], [address] [place] [address], [facility], tel:[phone] OP A NBrit 75 NMR 018 Parissaumya Zaynab. [address] [place] [address], [id number], . tel:[phone] As per patient privacy policy some of the clinical information may not be visible. Family History Family Member Type Diagnosis Age At Onset No Information Payers Payer name Insurance type Covered constitution party ID Authorlindseya tiyassine(s) Medicare MB [id number] Nickiangel Leonard [id number] Social History Type Description Quantity Date Captured [...]
[2025-04-23 10:51] LABS: Alanine Aminotransferase 28 U/L (0-40); Albumin Level 4.3 g/dL (3.5-5.0); Alkaline Phosphatase 90 U/L (39-117); Aspartate Amino Transferase 31 U/L (5-37); Total Protein 7.4 g/dL (6.5-8.0)
[2025-04-24 16:38] LABS: HCV Log PCR 6.09 Log IU/mL (NOT DETECTED); HepC Viral Load 1240000 IU/mL (NOT DETECTED)
[2025-04-27 09:28] LABS: FIB-ALT 18 U/L (9-46); FIB-Alpha-2-Macroglobulin 211 mg/dL (106-279); FIB-Apolipoprotein A1 138 mg/dL (94-176); FIB-GGT 14 U/L (3-95); FIB-Haptoglobin 160 mg/dL (43-212); FIB-Total Bilirubin 0.4 mg/dL (0.2-1.2); Liver Fibrosis Score 0.15; Liver Fibrosis Stage F0; Nec Inflam Act Grade A0; Nec Inflam Act Score 0.05
== END 2025-04-23 09:03 | disposition home or self-care (01) ==
LOC: HO.LAB 09:02
PROVIDERS: Absent Provider Nurse Practitioner Family; PCP Internal Medicine; Visit Provider Internal Medicine Medical Oncology
DX: K76.0 Fatty (change of) liver, not elsewhere classified (principal); B19.20 Unspecified viral hepatitis C without hepatic coma; Z86.19 Personal history of other infectious and parasitic diseases
CPT/HCPCS: 36415; 80076; 81596; 87522

== ENCOUNTER 2025-04-29 11:00 | Outpatient (REF) | payer OTHER, SELFPAY ==
--- OUTSIDE RECORDS SUMMARY | 2017-11-10 10:00 | XMS_ITS | Continuity of Care Document ---
Author Organization [employer] Address [address] [place] [address] Phone Care Team Providers Care Aircraft Armorer Name Role Phone Mary FERZaynab Unavailable Unavaila [...] Visit Diagnoses Date Provider Diagnostic Evaluation Castillo [facility], [address] [place] [address], [facility], tel:[phone] OP A NBrit 75 NMR 018 Parissaumya Zaynab. [address] [place] [address], [id number], . tel:[phone] As per patient privacy policy some of the clinical information may not be visible. Family History Family Member Type Diagnosis Age At Onset No Information Payers Payer name Insurance type Covered libertarian ID Authorlindseya tiyassine(s) Medicare [place] [id number] Nickiangel Leonard [id number] Social History Type Description Quantity Date Captured [...]
== END 2025-04-29 11:01 | disposition home or self-care (01) ==
LOC: HO.LAB 11:00
PROVIDERS: PCP Internal Medicine; Visit Provider Urology
DX: C67.9 Malignant neoplasm of bladder, unspecified (principal); N40.1 Benign prostatic hyperplasia with lower urinary tract symptoms; Z85.51 Personal history of malignant neoplasm of bladder; R31.29 Other microscopic hematuria; R32 Unspecified urinary incontinence; Z72.0 Tobacco use
CPT/HCPCS: 52000; 81003; 88112; 99212

== ENCOUNTER 2025-04-29 11:00 | Outpatient (AMB) | payer OTHER, SELFPAY ==
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
== END 2025-04-29 12:22 | disposition home or self-care (01) ==
LOC: HO.HUSH 11:01
PROVIDERS: PCP Internal Medicine; Visit Provider Urology
DX: C67.9 Malignant neoplasm of bladder, unspecified (principal); R31.29 Other microscopic hematuria; R32 Unspecified urinary incontinence; N40.0 Benign prostatic hyperplasia without lower urinary tract symptoms; Z72.0 Tobacco use; Z85.51 Personal history of malignant neoplasm of bladder; Z13.9 Encounter for screening, unspecified
CPT/HCPCS: 52000; 99213

== ENCOUNTER 2025-05-13 12:17 | Outpatient (AMB) | payer OTHER, SELFPAY ==
[2025-05-13 12:22] VITALS: BP 120/66; PULSE 77; TEMP 36.4; O2SAT 98; BMI 18.2
--- NOTE | 2025-05-13 12:22 | A.OFFPC_ITS ---
Vital Signs 05/13/25 12:22 Height 5 ft 11 in Weight 130 lb 6 oz BMI 18.2 BP 120/66 Blood Pressure Location Lt brachial Position Sitting Pulse 77 Pulse Source Pulse Oximeter Temp 97.5 F Temp Source Temporal Artery Scan Pulse Oximetry (%) 98 Oxygen Delivery Method Room Air Intake Visit Reasons: annual exam Allergies No Known Allergies (No Known Allergies*) Allergy (Verified 05/13/25 12:31) Medication List - Last Reconciled 05/13/25 by Jay Jay Watson MD [Boost Plus As directed] albuterol sulfate 90 mcg/actuation 2 puffs inhalation Q4-6H PRN atorvastatin 20 mg PO DAILY buprenorphine-naloxone 8-2 mg 1 film sublingual TID [cbd VAPE no THC ] [INCONTINENCE BED PADS FOR ADULTS disposable As directed] multivitamin 1 tab PO DAILY nicotine 1 patch transdermal DAILY olanzapine 20 mg PO DAILY ondansetron 8 mg PO Q8H tamsulosin 0.4 mg PO BEDTIME 90 days Vosevi 400-100-100 mg (biqwxydurz-rlqunrgn-jqmxpcwhim) 1 tab PO DAILY 12 weeks NS Tobacco use date assessed: 05/13/25 Dental Screening Dental Screen Date: 05/13/25 Did you have a dental visit in the last 12 months?: Yes Did you have a dental problem in the last 6 months where you did not have access to dental care?: No Was dental information given to patient?: Patient has dentist HPI annual exam HPI Details Hepatitis C treatment - seeing GI and awaiting treatment PFSH Medical History Hepatitis B Annual physical exam Constipation Underweight Hematuria Urinary dribbling Gross hematuria Abnormal urine cytology Preop testing Bladder mass Family history of colorectal cancer Asthma Polysubstance abuse GERD (gastroesophageal reflux disease) Schizophrenia Hypercholesterolemia Carpal tunnel syndrome on both sides Tobacco abuse Surgical History Hx of esophagogastroduodenoscopy Hx of colonoscopy History of surgery of head History of lumbar surgery H/O hand surgery History of hip surgery H/O left knee surgery H/O right wrist surgery Family History Father Colon cancer Mother Diabetes Paternal Grandfather Gallbladder cancer Pancreas cancer Paternal Aunt Colon cancer Gallbladder cancer Leukemia Breast cancer Paternal Aunt Cancer Social History (Updated 05/13/25 @ 12:51 by Jay Jay Watson MD) Housing: Apartment Alcohol intake: never Patient Tobacco Use Status: Current everyday Tobacco user Tobacco use type: Cigarette Cigarettes Per Day: 2 Years Smoked: not ready to stop e-Cigarette/Vaping Use: Never Used Second Hand Smoke Exposure: Yes Substance Use Type: Marijuana service: No Current occupational status: disabled Cognitive needs: No Hearing needs: No Vision needs: No Questionnaire PHQ-9 Over the last 2 weeks, how often have you been bothered by any of the following problems? 1. Little interest or pleasure in doing things: several days 2. Feeling down, depressed, or hopeless: several days 3. Trouble falling or staying asleep, or sleeping too much: several days 4. Feeling tired or having little energy: several days 5. Poor appetite or overeating: several days 6. Feeling bad about yourself - or that you are a failure or have let yourself or your family down: not at all 7. Trouble concentrating on things, such as reading the newspaper or watching television: not at all 8. Moving or speaking so slowly that other people could have noticed. Or the opposite - being so fidgety or restless that you have been moving around a lot more than usual: not at all 9. Thoughts that you would be better off or of hurting yourself in some way: not at all Total score: 5 Source: Developed by Drs. Valente Garcia, Sienna Jin, Thanh Rae and colleagues, with an educational vince from [employer]. Thrive Questionnaire Date Thrive assessed: 09/03/24 I am a: Patient What is your living situation today?: I have a steady place to live Within the past 12 months, did the food you bought not last and you didn't have the money to get more?: Sometimes True Within the past 12 months, did you worry whether your food would run out before you got money to buy more?: Sometimes True Do you have trouble paying for medicines?: No Do you have trouble getting transportation to medical appointments?: No Do you have trouble paying your heating and electricity bill?: Yes Do you have trouble taking care of your child, family member or friend?: No Do you have trouble with day-to-day activities such as bathing, preparing meals, shopping, managing finances, etc.?: Yes Are you currently unemployed and looking for a job?: No Are you interested in more education?: No Please select the resources that you would like help with: Utilities Currently or been in a relationship where the following occur: No concerns reported THRIVE Score: 3 AUDIT C Alcohol Use Questionnaire (AUDIT-C) 1. How often do you have a drink containing alcohol?: Never 3. How often do you have six or more drinks on one occasion?: Never Total Score: 0 JAYDEN-7 AMB Questionnaire JAYDEN-7 Date JAYDEN - 7 assessed: 12/03/24 Feeling nervous, anxious, or on edge: 1 = Several days Not being able to stop or control worryin = Several days Worrying too much about different things: 1 = Several days Trouble relaxin = Several days Being so restless that it is hard to sit still: 1 = Several days Becoming easily annoyed or irritable: 1 = Several days Feeling afraid as if something awful might happen: 0 = Not at all Total JAYDEN-7 score (0-4 normal; 5-9 mild; 10-14 moderate; 15-21 severe): 6 Source: Developed by Drs. Valente Garcia, Sienna Jin, Thanh Rae and colleagues, with an educational vince from [employer]. Review of Systems Const Denies poor appetite and Denies weakness Eyes Denies no additional complaints ENT Reports Normal hearing present, Denies dizziness, Denies nasal congestion, Denies tinnitus and Denies sore throat Card Denies chest pain, Denies syncope, Denies rapid heart rate and Denies dyspnea Resp Denies cough and Denies dyspnea GI Denies change in stool character, Reports constipation, Denies diarrhea, Denies nausea and Denies vomiting Denies dysuria and Denies urinary frequency Neuro Reports Normal hearing present, Denies confusion, Denies dizziness, Denies syncope and Denies weakness Psych Denies confusion Physical exam (Primary Care) Vital Signs: Last Vital Signs Temp 97.5 F 05/13/25 12:22 Pulse 77 05/13/25 12:22 BP 120/66 05/13/25 12:22 Pulse Ox 98 05/13/25 12:22 Oxygen Delivery Method Room Air 05/13/25 12:22 BMI result Body Mass Index 18.2 Tobacco/Smoking Status: Tobacco use Status Tobacco use date assessed 05/13/25 05/13/25 12:32 Patient Tobacco Use Status Current everyday Tobacco 05/13/25 12:51 Tobacco use type Cigarette 05/13/25 12:51 e-Cigarette/Vaping Use Never Used 05/13/25 12:51 PHQ-9: PHQ-9 Score PHQ-9: Total score 5 05/13/25 12:46 Thrive Assessment: Date of Thrive Assessment Date Thrive assessed 09/03/24 05/13/25 12:23 Currently or been in a relationship where the following occur: No concerns reported Const General: No confusion Orientation/consciousness: No confusion HENMT Head: Yes normocephalic Ears: external ears normal and TM's normal bilaterally Face and sinus: Yes normal facial exam Mouth: moist mucous membranes Throat: Yes tonsils normal Eyes Conjunctivae: conjunctivae normal Pupils: Equal, round and reactive pupils present and Pupil accommodation reflex normal Direct Ophthalmoscopy: normal light reflex Neck Neck: No lymphadenopathy Thyroid: Thyroid normal Chest Chest palpation & inspection: normal inspection of the chest Resp Effort & Inspection: normal respiratory effort and no audible wheezes Auscultation: clear to auscultation bilaterally, no crackles, no wheezes and lung sounds not diminished Cardio Rate: regular rate Rhythm: regular rhythm Peripheral pulses: radial pulses present and dorsalis pedis present GI Other: visual rectal exam negative Palpation (GI): no masses Auscultation: normal bowel sounds and normoactive bowel sounds Male General Exam: Yes normal external exam Skin Other: can elevate R leg to 30 degrees, but left cannot lift leg, cannpt elementary school teacher left hand General skin exam: no rashes or lesions noted Rashes: no rashes Neuro General: No confusion Cranial nerves: Yes Equal, round and reactive pupils present and Yes Normal hearing present Cognition (Neuro): normal cognition Gait exam (Neuro): Normal gait present Motor exam (neuro): 5/5 motor strength present throughout Deep tendon reflexes (DTR's): Right brachioradialis reflex intensity grade: 2+, Left brachioradialis reflex intensity grade: 2+, Right patellar reflex intensity grade: 2+ and Left patellar reflex intensity grade: 2+ Extrem General: No edema Coding Level of Care Code Est Pt Prev Care 40-64y(51596) Diagnoses Annual physical exam Z00.00 Asthma J45.909 Malignant neoplasm of urinary bladder, unspecified site C67.9 Bladder location: unspecified site Anemia, unspecified type D64.9 Anemia type: unspecified type BPH (benign prostatic hyperplasia) N40.0 Chronic hepatitis C without hepatic coma B18.2 Hepatic coma status: without hepatic coma Viral hepatitis chronicity: chronic Gastroesophageal reflux disease without esophagitis K21.9 Esophagitis presence: without esophagitis Impaired fasting blood sugar R73.01 Hypercholesterolemia E78.00 Polysubstance abuse F19.10 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 (2) Asthma: Code(s): J45.909 - Unspecified asthma, uncomplicated Category: Medical Plan: Patient on albuterol inhaler as needed (3) Urinary bladder cancer: Comment: 11/2023 Code(s): C67.9 - Malignant neoplasm of bladder, unspecified Category: Medical Qualifiers: Bladder location: unspecified site Qualified Code(s): C67.9 - Malignant neoplasm of bladder, unspecified Plan: Patient is being followed up by Urology has had cystoscopy and instillation but awaiting hep C treatment (4) Anemia: Code(s): D64.9 - Anemia, unspecified Category: Medical Qualifiers: Anemia type: unspecified type Qualified Code(s): D64.9 - Anemia, unspe cified Plan: Continue to monitor (5) BPH (benign prostatic hyperplasia): Code(s): N40.0 - Benign prostatic hyperplasia without lower urinary tract symptoms Category: Medical Plan: On tamsulosin (6) Hepatitis C: Code(s): B19.20 - Unspecified viral hepatitis C without hepatic coma Category: Medical Qualifiers: Hepatic coma status: without hepatic coma Viral hepatitis chronicity: chronic Qualified Code(s): B18.2 - Chronic viral hepatitis C Plan: Patient is being followed up by Gastroenterology for hepatitis C treatment (7) GERD (gastroesophageal reflux disease): Code(s): K21.9 - Gastro-esophageal reflux disease without esophagitis Category: Medical Qualifiers: Esophagitis presence: without esophagitis Qualified Code(s): K21.9 - Gastro-esophageal reflux disease without esophagitis Plan: Avoid the foods that causes that usually spicy foods, tomato products, juices, coffee, soda and foods that your sensitive to. After eating do not lie down, allow 3-4 hours before in lie down. And keep the head of bed above 30 degrees to avoid the acid from going up. (8) Impaired fasting blood sugar: Code(s): R73.01 - Impaired fasting glucose Category: Medical Plan: Decrease the amount of carbohydrate intake, pasta, bread, rice and potatoes are all sugar and that is aside from all the sweet stuff, remember that fruits are good but they are Sweet also. (9) Hypercholesterolemia: Code(s): E78.00 - Pure hypercholesterolemia, unspecified Category: Medical Plan: Avoid fried foods, chicken skin, eggs, butter margarine, pastries and meat. Be it pork or beef they have a lot of cholesterol on atorvastatin 20 mg once a day (10) Polysubstance abuse: Code(s): F19.10 - Other psychoactive substance abuse, uncomplicated Category: Medical Plan: Patient on Suboxone (11) Schizophrenia: Comment: [facility] (03/2022) Code(s): F20.9 - Schizophrenia, unspecified Category: Medical Qualifiers: Schizophrenia type: disorganized schizophrenia Qualified Code(s): F20.1 - Disorganized schizophrenia Plan: Continue with counseling and therapy Plan History of Present Illness The patient is a 45-year-old male presenting for an annual physical examination. He has a history of hypercholesterolemia, schizophrenia, gastroesophageal reflux disease, polysubstance abuse, impaired glucose tolerance, and benign prostatic hyperplasia. The patient was diagnosed with urinary bladder cancer in November 2023 and has undergone bladder instillation with gemcitabine and docetaxel. He is scheduled to start Keytruda immunotherapy but is currently awaiting treatment for hepatitis C before proceeding. The patient has a family history of colorectal cancer, with the last colonoscopy performed in December 2023. He also has a history of asthma and hepatitis C, for which he is being followed by gastroenterology. Recent blood work in March 2025 showed mild anemia with a hemoglobin level of 13.2 g/dL and hematocrit of 39.2%. Other lab results, including platelets, white blood cell count, electrolytes, renal function, blood sugar, and liver function, were within normal limits. Health Maintenance - Annual physical examination conducted - Follow-up with gastroenterology for hepatitis C treatment - Scheduled to start Keytruda immunotherapy post-hepatitis C treatment - Blood work scheduled in three months, fasting required Social History - Substance use: History of polysubstance abuse, currently on Suboxone - Smoking: Smokes cigarettes, advised to quit - Family: Has a son who started university, majoring in biology Review of Systems - Respiratory: Reports increased use of albuterol inhaler, denies other respiratory symptoms - Cardiovascular: Denies chest pain or palpitations - Gastrointestinal: Denies abdominal pain or changes in bowel habits - Neurological: Denies headaches or dizziness Physical Exam General: Cooperative, healthy appearing, comfortable, no acute distress and well developed Orientation: Patient oriented x3 Limitations: No limitations Head: Normal to inspection Ears: Hearing grossly normal bilaterally Nose: Normal external nose present Face and sinus: Normal facial exam Eyes: Appearance normal, both eyes and all related structures Neck: Normal visual inspection and Yes full ROM Respiratory: Normal respiratory effort and able to speak in complete sentences. Clear to auscultation bilaterally Cardiovascular: Regular rate and rhythm. Normal S1 and S2 GI: Normal to inspection. Soft to palpation and nontender Skin: No rashes or lesions noted Neuro: Patient oriented x3 Extremities: Normal to inspection Results - Labs: Mild anemia with hemoglobin 13.2 g/dL, hematocrit 39.2% - Labs: Normal platelets, white blood cell count, electrolytes, renal function, blood sugar, and liver function Plan Patient was informed and verbally consented to the use of an ambient scribe for clinic note documentation during this visit. 1. Hypercholesterolemia The patient is currently on atorvastatin 20 mg once daily for hypercholesterolemia management. The last cholesterol test in August showed an LDL level of 131 mg/dL. 2. Schizophrenia The patient is on olanzapine 20 mg for schizophrenia management. 3. Gastroesophageal Reflux Disease (Gerd) The patient continues to manage GERD symptoms with lifestyle modifications and medication as needed. 4. Polysubstance Abuse The patient is on Suboxone and continues with counseling therapy for polysubstance abuse. 5. Impaired Glucose Tolerance The patient is advised to monitor blood sugar levels and maintain a healthy diet to manage impaired glucose tolerance. 6. Benign Prostatic Hyperplasia (Bph) The patient is on tamsulosin for management of benign prostatic hyperplasia. 7. History Of Urinary Bladder Cancer The patient has undergone bladder instillation with gemcitabine and docetaxel a nd is scheduled to start Keytruda immunotherapy post-hepatitis C treatment. 8. Asthma The patient uses an albuterol inhaler as needed and has been prescribed Symbicort for better asthma control. 9. Hepatitis C The patient is awaiting treatment for hepatitis C and is advised to follow up with gastroenterology. 10. Mild Anemia Recent blood work showed mild anemia with a hemoglobin level of 13.2 g/dL and hematocrit of 39.2%. Discussion Notes During the visit, we discussed the patient's ongoing management for hypercholesterolemia, schizophrenia, GERD, and polysubstance abuse. We also reviewed the patient's history of urinary bladder cancer and the plan to start Keytruda immunotherapy after hepatitis C treatment. The importance of quitting smoking was emphasized, and the patient was advised to continue follow-up with gastroenterology for hepatitis C management. Patient Instructions - Continue taking atorvastatin 20 mg daily for cholesterol management. - Use albuterol inhaler as needed and start Symbicort as prescribed. - Follow up with gastroenterology for hepatitis C treatment. - Quit smoking to reduce health risks. - Maintain a healthy diet and monitor blood sugar levels. - Schedule and attend blood work in three months, ensuring fasting prior to the test. Orders: Orders Free T4 (Free Thyroxine) 3 Months C67.9 - Malignant neoplasm of bladder, unspecified Vitamin B12 and Folate 3 Months C67.9 - Malignant neoplasm of bladder, unspecified Lipid Panel 3 Months C67.9 - Malignant neoplasm of bladder, unspecified, E78.00 - Pure hypercholesterolemia, unspecified Complete Blood Count Auto Diff 3 Months C67.9 - Malignant neoplasm of bladder, unspecified Thyroid Stimulating Hormone 3 Months C67.9 - Malignant neoplasm of bladder, unspecified IRON PROFILE 3 Months C67.9 - Malignant neoplasm of bladder, unspecified Reticulocyte Count 3 Months C67.9 - Malignant neoplasm of bladder, unspecified Comprehensive Met. Panel 3 Months C67.9 - Malignant neoplasm of bladder, unspecified Hemoglobin A1c 3 Months C67.9 - Malignant neoplasm of bladder, unspecified Medications: New budesonide-formoterol 160-4.5 mcg/actuation (Symbicort) 2 puffs inhalation Q12H 10.2 grams 4RF J45.909 - Unspecified asthma, uncomplicated budesonide-formoterol 160-4.5 mcg/actuation (Symbicort) 2 puffs inhalation Q12H 10.2 grams 4RF J45.909 - Unspecified asthma, uncomplicated Refilled atorvastatin 20 mg PO DAILY 90 tabs 1RF E78.00 - Pure hypercholesterolemia, unspecified atorvastatin 20 mg PO DAILY 90 tabs 1RF E78.00 - Pure hypercholesterolemia, unspecified Discontinued ondansetron Discontinued Reason: Patient Completed Course 8 mg PO Q8H 50 tabs 3RF nicotine Discontinued Reason: Patient Completed Course 1 patch transdermal DAILY 28 ea 0RF Z72.0 - Tobacco use
== END 2025-05-13 13:23 | disposition home or self-care (01) ==
LOC: HO.HMCH 12:18
PROVIDERS: PCP Internal Medicine; Visit Provider Internal Medicine
DX: Z00.00 Encounter for general adult medical examination without abnormal findings (principal); C67.9 Malignant neoplasm of bladder, unspecified; B18.2 Chronic viral hepatitis C; F19.10 Other psychoactive substance abuse, uncomplicated; F20.1 Disorganized schizophrenia; J45.909 Unspecified asthma, uncomplicated; D64.9 Anemia, unspecified; N40.0 Benign prostatic hyperplasia without lower urinary tract symptoms; K21.9 Gastro-esophageal reflux disease without esophagitis; R73.01 Impaired fasting glucose; E78.00 Pure hypercholesterolemia, unspecified

== ENCOUNTER → 2025-05-13 12:17 | Outpatient (BNVA) | payer OTHER, SELFPAY | PROVIDERS: PCP Internal Medicine; Visit Provider Internal Medicine | DX: Z00.00 Encounter for general adult medical examination without abnormal findings (principal); J45.909 Unspecified asthma, uncomplicated; C67.9 Malignant neoplasm of bladder, unspecified; D64.9 Anemia, unspecified; N40.0 Benign prostatic hyperplasia without lower urinary tract symptoms; K21.9 Gastro-esophageal reflux disease without esophagitis; B18.2 Chronic viral hepatitis C; R73.01 Impaired fasting glucose; E78.00 Pure hypercholesterolemia, unspecified; F19.10 Other psychoactive substance abuse, uncomplicated; F20.1 Disorganized schizophrenia; F20.9 Schizophrenia, unspecified | CPT/HCPCS: 96127; 99396 ==

== ENCOUNTER 2025-05-27 14:56 | Outpatient (REF) | payer OTHER, SELFPAY ==
--- OUTSIDE RECORDS SUMMARY | 2017-11-10 10:00 | XMS_ITS | Continuity of Care Document ---
Author Organization [employer] Address [address] [place] [address] Phone Care Team Providers Care Nurses Assistant Name Role Phone Mary FERZaynab Unavailable Unavaila ble Allergies, Adverse Reactions, Alerts Substance Reaction Status Criticality No Known Allergies Active No Inform ation Procedures Procedure Date Diagnostic Evaluation As per patient privacy policy some of the clinical information may not be visible. Results Test Name Date and Time Measure Units Reference Range Abnormal Flag Status Commen ts No Information As per patient privacy policy some of the clinical information may not be visible. Advance Directives Directive Yes / No Effective Date File Name No Information Encounters Encounter Description Practice Location Reason(s) For Visit Diagnoses Date Provider Diagnostic Evaluation Castillo [facility], [address] [place] [address], [facility], tel:[phone] OP A NBrit 75 NMR 018 Parissaumya Zaynab. [address] [place] [address], [id number], . tel:[phone] As per patient privacy policy some of the clinical information may not be visible. Family History Family Member Type Diagnosis Age At Onset No Information Payers Payer name Insurance type Covered constitution party ID Authorlindseya tiyassine(s) Medicare MB [id number] Nickiangel Leonard [id number] Social History Type Description Quantity Date Captured Comments Alcohol Use Details Unknown Caffeine Use Details Unknown Tobacco Use Status Moderate cigarette smoker (10-19 cigs/day) Smoking Status Heavy tobacco smoker Smoking Tobacco Use Details Cigarette: No Details Available Cigarette: 10 Cigarettes per day, Sex Male Sexual Orientation Straight or heterosexual Gender Identity Male Vital Signs Date / Time: Height Weight BMI Pulse Rate Blood Pressure Temperature Respiratory Rate Body Surface Area Head Circumference Head Circ. Percentile Wt./Ean. Percentile BMI percentile Pulse Ox Inhaled Ox 2:47 PM 71.00 in 61.235 kg (135.00 lbs) 18.8 3 kg/m eter (2) Chief Complaint And Reason For Visit No Information History Of Present Illness Encounter Date Complaint History Of Prese nt Illness No Information Instructions Date Instruction Additional Infor mation No Information Assessments Type Assessment Date No Information As per patient privacy policy some of the clinical information may not be visible.
--- NOTE | ~2025-05-27 | US_ITS ---
EXAMINATION: US ABDOMEN LIMITED WITH LIVER ELASTOGRAPHY CLINICAL INFORMATION: Fatty liver. COMPARISON: None available. TECHNIQUE: Real-time imaging of the abdominal viscera. Noninvasive ultrasound liver fibrosis assessment is performed using [employer] ElastPQ point quantification shear wave elastography (2D-SWE) with a C5-2 MHz transducer. Multiple elastography samples are obtained. FINDINGS: PANCREAS: The visualized pancreatic head and body are normal in appearance. The remainder of the pancreas is obscured from visualization by the overlying bowel gas. LIVER: The liver demonstrates normal size, contour and echogenicity. No focal lesion or intrahepatic biliary duct dilatation. The right lobe measures 14.9 cm in length. The left lobe measures 10.2 cm in length. Portal flow is towards the liver (hepatopetal). Shear wave liver elastography median stiffness is 1.52 m/s (reference: normal median stiffness is 1.3 m/s or less). IQR/median stiffness to assess sampling precision is 0.09 (reference: good quality data set is IQR/median stiffness of 0.15 or less). This indicates a quality data set. GALLBLADDER: The gallbladder is physiologically distended without evidence of stones, sludge, polyps, wall thickening or pericholecystic fluid. COMMON BILE DUCT: Normal in caliber measuring 0.4 cm in diameter. RIGHT KIDNEY: No hydronephrosis. No renal calculi or focal parenchymal lesions. The kidney measures 10.2 cm in maximum dimension. FREE FLUID: None. US/US abdomen post w elastography IMPRESSION: 1. Normal-appearing liver and bile ducts. No focal hepatic lesions. 2. Liver elastography: In the absence of other known clinical signs, measurements rule out compensated advanced chronic liver disease. If there are known clinical signs, further testing may be needed for confirmation. 3. Remainder of the examination is normal. REFERENCE: Society of Radiologists in Ultrasound Liver Stiffness Thresholds (2019): LIVER STIFFNESS THRESHOLDS: *Liver Stiffness equal or less than 1.3 m/s: High probability of being normal. *Liver Stiffness less than 1.7 m/s: In the absence of other known clinical signs, rules out compensated advanced chronic liver disease. *Liver Stiffness 1.7-2.1 m/s: Suggestive of compensated advanced chronic liver disease but need further test for confirmation. *Liver Stiffness over 2.1 m/s: Rules in compensated advanced chronic liver disease. *Liver Stiffness over 2.4 m/s: Suggestive of clinically significant portal hypertension. QUALITY OF DATA SET: *IQR/Median value equal or less than 0.15 implies a quality data set. *IQR/Median value over 0.15 implies a poor quality data set. SIGNIFICANT CHANGE FROM PRIOR EXAM: Significant change if liver stiffness measurement is 10% or greater from prior exam. OTHER CONSIDERATIONS: The stage of liver fibrosis may be overestimated in the setting of acute hepatitis, liver inflammation, elevated liver function tests, hepatic vascular congestion, obstructive cholestasis, non-fasting state, and infiltrative diseases such as amyloidosis and lymphoma. In some patients with NAFLD, the liver stiffness thresholds for compensated advanced chronic liver disease may be lower. In causes other than viral hepatitis and NAFLD, liver stiffness thresholds are not well established. Electronically signed by: Lai Schofield MD 05/27/2025 03:57 PM EDT
== END 2025-05-27 14:57 | disposition home or self-care (01) ==
LOC: HO.US 14:56
PROVIDERS: PCP Internal Medicine; Visit Provider Nurse Practitioner Family
DX: K76.0 Fatty (change of) liver, not elsewhere classified (principal); B18.2 Chronic viral hepatitis C
CPT/HCPCS: 76705; 76981

== ENCOUNTER → 2025-05-27 14:57 | Outpatient (BNV) | payer OTHER, SELFPAY | PROVIDERS: PCP Internal Medicine; Visit Provider Radiology Diagnostic Radiology | DX: K76.0 Fatty (change of) liver, not elsewhere classified (principal) | CPT/HCPCS: 76705 ==

== ENCOUNTER 2025-06-03 12:56 | Outpatient (AMB) | payer OTHER, SELFPAY ==
[2025-06-03 13:03] VITALS: BP 108/62; PULSE 85; O2SAT 98; BMI 17.7
--- NOTE | 2025-06-03 13:03 | MHC.PC.OV ---
Vital Signs 06/03/25 13:03 Height 5 ft 11 in Weight 127 lb BMI 17.7 BP 108/62 Blood Pressure Location Lt brachial Position Sitting Pulse 85 Pulse Source Pulse Oximeter Pulse Oximetry (%) 98 Oxygen Delivery Method Room Air Intake Visit Reasons: 3 month f/u Allergies No Known Allergies (No Known Allergies*) Allergy (Verified 06/03/25 13:03) Tobacco use date assessed: 05/13/25 Dental Screening Dental Screen Date: 05/13/25 HPI 3 month f/u HPI Details Melissa is seeing gastroeneterology to treat liver- but insurance not covering for the liver for the hepatitis C. - had to start with liver treatment before bladder treatment [facility] Medical History (Updated 06/03/25 @ 13:19 by Jay Jay Watson MD) History of bladder cancer Bladder cancer Hepatitis B Annual physical exam Constipation Underweight Hematuria Urinary dribbling Gross hematuria Abnormal urine cytology Preop testing Bladder mass Family history of colorectal cancer Asthma Polysubstance abuse GERD (gastroesophageal reflux disease) Schizophrenia Hypercholesterolemia Carpal tunnel syndrome on both sides Tobacco abuse Surgical History Hx of esophagogastroduodenoscopy Hx of colonoscopy History of surgery of head History of lumbar surgery H/O hand surgery History of hip surgery H/O left knee surgery H/O right wrist surgery Family History Father Colon cancer Mother Diabetes Paternal Grandfather Gallbladder cancer Pancreas cancer Paternal Aunt Colon cancer Gallbladder cancer Leukemia Breast cancer Paternal Aunt Cancer Social History (Updated 05/13/25 @ 12:51 by Jay Jay Watson MD) Housing: Apartment Alcohol intake: never Patient Tobacco Use Status: Current everyday Tobacco user Tobacco use type: Cigarette Cigarettes Per Day: 2 Years Smoked: not ready to stop e-Cigarette/Vaping Use: Never Used Second Hand Smoke Exposure: Yes Substance Use Type: Marijuana service: No Current occupational status: disabled Cognitive needs: No Hearing needs: No Vision needs: No Questionnaire Thrive Questionnaire Date Thrive assessed: 05/13/25 I am a: Patient What is your living situation today?: I have a steady place to live Within the past 12 months, did the food you bought not last and you didn't have the money to get more?: Sometimes True Within the past 12 months, did you worry whether your food would run out before you got money to buy more?: Sometimes True Do you have trouble paying for medicines?: No Do you have trouble getting transportation to medical appointments?: No Do you have trouble paying your heating and electricity bill?: Yes Do you have trouble taking care of your child, family member or friend?: No Do you have trouble with day-to-day activities such as bathing, preparing meals, shopping, managing finances, etc.?: Yes Are you currently unemployed and looking for a job?: No Are you interested in more education?: No Please select the resources that you would like help with: Utilities Currently or been in a relationship where the following occur: No concerns reported THRIVE Score: 3 JAYDEN-7 AMB Questionnaire JAYDEN-7 Date JAYDEN - 7 assessed: 12/03/24 Source: Developed by Drs. Valente Garcia, Sienna Jin, Thanh Rae and colleagues, with an educational vince from [employer]. Physical exam (Primary Care) Vital Signs: Last Vital Signs Pulse 85 06/03/25 13:03 BP 108/62 06/03/25 13:03 Pulse Ox 98 06/03/25 13:03 Oxygen Delivery Method Room Air 06/03/25 13:03 BMI result Body Mass Index 17.7 Tobacco/Smoking Status: Tobacco use Status Tobacco use date assessed 05/13/25 06/03/25 13:07 Patient Tobacco Use Status Current everyday Tobacco 06/03/25 13:07 Tobacco use type Cigarette 06/03/25 13:07 e-Cigarette/Vaping Use Never Used 06/03/25 13:07 Thrive Assessment: Date of Thrive Assessment Date Thrive assessed 05/13/25 06/03/25 13:07 Currently or been in a relationship where the following occur: No concerns reported Const General: alert; No acute distress Eyes Conjunctivae: conjunctivae normal Resp Auscultation: clear to auscultation bilaterally Cardio Rate: regular rate Rhythm: regular rhythm GI Inspection: Yes normal to inspection Extrem General: Yes normal to inspection and No edema Coding Level of Care Code Est Pt Level 4 (57862) Diagnoses Hypercholesterolemia E78.00 Impaired fasting blood sugar R73.01 Gastroesophageal reflux disease without esophagitis K21.9 Esophagitis presence: without esophagitis Malignant neoplasm of urinary bladder, unspecified site C67.9 Bladder location: unspecified site Asthma J45.909 Idiopathic scoliosis of lumbosacral spine M41.27 Assessment & Plan Assessment & Plan (1) Hypercholesterolemia: Code(s): E78.00 - Pure hypercholesterolemia, unspecified Category: Medical Plan: Avoid fried foods, chicken skin, eggs, butter margarine, pastries and meat. Be it pork or beef they have a lot of cholesterol LDL goal of less than 130 and triglyceride of less than 150 on atorvastatin (2) Impaired fasting blood sugar: Code(s): R73.01 - Impaired fasting glucose Category: Medical Plan: Decrease the amount of carbohydrate intake, pasta, bread, rice and potatoes are all sugar and that is aside from all the sweet stuff, remember that fruits are good but they are Sweet also. (3) GERD (gastroesophageal reflux disease): Code(s): K21.9 - Gastro-esophageal reflux disease without esophagitis Category: Medical Qualifiers: Esophagitis presence: without esophagitis Qualified Code(s): K21.9 - Gastro-esophageal reflux disease without esophagitis Plan: Avoid the foods that causes that usually spicy foods, tomato products, juices, coffee, soda and foods that your sensitive to. After eating do not lie down, allow 3-4 hours before in lie down. And keep the head of bed above 30 degrees to avoid the acid from going up. (4) Urinary bladder cancer: Comment: 11/2023 Code(s): C67.9 - Malignant neoplasm of bladder, unspecified Category: Medical Qualifiers: Bladder location: unspecified site Qualified Code(s): C67.9 - Malignant neoplasm of bladder, unspecified Plan: Continue to follow-up with urology (5) Asthma: Code(s): J45.909 - Unspecified asthma, uncomplicated Category: Medical Plan: Patient does have the albuterol inhaler (6) Idiopathic scoliosis of lumbosacral spine: Comment: [facility] sophia x-ray 2019 T11 to lumbar Code(s): M41.27 - Other idiopathic scoliosis, lumbosacral region Category: Medical Plan History of Present Illness The patient is a 45-year-old male presenting for a follow-up visit. He has a history of hypercholesterolemia, with the last cholesterol test in August 2024 showing an LDL level of 131 mg/dL. He is on atorvastatin with a goal to maintain LDL below 130 mg/dL and triglycerides below 150 mg/dL. The patient has schizophrenia and a history of polysubstance abuse, which are being managed as part of his ongoing care. He also has gastroesophageal reflux disease (GERD) and benign prostatic hyperplasia (BPH), both of which are part of his chronic conditions. The patient was diagnosed with urinary bladder cancer in November 2023 and is currently undergoing treatment. There are issues with insurance approval for liver medication, which is delaying chemotherapy due to concerns about liver health. His last colonoscopy was performed in 2023, and he was last seen for a physical exam in April 2022. Recent blood work in March 2025 revealed mild anemia, but electrolytes, renal function, blood sugar, and liver function were normal. The ultrasound of the liver performed on May 27 showed a normal appearing liver with no lesions. The patient also has lumbosacral spine scoliosis, which was noted during the visit. Health Maintenance - Preventative care: Colonoscopy performed in 2023 - Cholesterol management: LDL goal of less than 130 mg/dL and triglycerides less than 150 mg/dL on atorvastatin Social History - Substance use: History of polysubstance abuse Review of Systems Physical Exam Results - Labs: Mild anemia noted in blood work from March 2025 - Labs: Normal electrolytes, renal function, blood sugar, and liver function - Imaging: Ultrasound of the liver on May 27 showed normal appearing liver with no lesions Plan Patient was informed and verbally consented to the use of an ambient scribe for clinic note documentation during this visit. 1. Hypercholesterolemia The patient is on atorvastatin with a target LDL cholesterol level of less than 130 mg/dL and triglycerides less than 150 mg/dL. 2. Urinary Bladder Cancer The patient is undergoing treatment for urinary bladder cancer, but chemotherapy is delayed due to insurance issues with liver medication approval. 3. Mild Anemia Recent blood work indicated mild anemia, but no specific treatment plan was discussed during the visit. Discussion Notes During the visit, we discussed the patient's ongoing management of hypercholesterolemia with atorvastatin, aiming for specific lipid targets. We also addressed the challenges in obtaining insurance approval for liver medication, which is impacting the chemotherapy schedule for urinary bladder cancer. Patient Instructions - Continue taking atorvastatin as prescribed to manage cholesterol levels. - Follow up with the electrotyper helper regarding liver medication approval.
== END 2025-06-03 13:38 | disposition home or self-care (01) ==
LOC: HO.HMCH 12:57
PROVIDERS: PCP Internal Medicine; Visit Provider Internal Medicine
DX: E78.00 Pure hypercholesterolemia, unspecified (principal); R73.01 Impaired fasting glucose; K21.9 Gastro-esophageal reflux disease without esophagitis; C67.9 Malignant neoplasm of bladder, unspecified; J45.909 Unspecified asthma, uncomplicated; M41.27 Other idiopathic scoliosis, lumbosacral region

== ENCOUNTER → 2025-06-03 12:56 | Outpatient (BNVA) | payer OTHER, SELFPAY | PROVIDERS: PCP Internal Medicine; Visit Provider Internal Medicine | DX: E78.00 Pure hypercholesterolemia, unspecified (principal); R73.01 Impaired fasting glucose; K21.9 Gastro-esophageal reflux disease without esophagitis; C67.9 Malignant neoplasm of bladder, unspecified; J45.909 Unspecified asthma, uncomplicated; M41.27 Other idiopathic scoliosis, lumbosacral region; D64.9 Anemia, unspecified; Z79.899 Other long term (current) drug therapy | CPT/HCPCS: 99212 ==

== ENCOUNTER 2025-06-10 14:39 | Outpatient (REF) | payer OTHER, SELFPAY ==
--- NOTE | ~2025-06-10 | CT_ITS ---
EXAMINATION: CT ABDOMEN AND PELVIS WITHOUT AND WITH CONTRAST CLINICAL INFORMATION: History of bladder cancer. COMPARISON: August 01, 2023 TECHNIQUE: Noncontrast CT of the abdomen and pelvis is performed followed by split bolus contrast-enhanced images using 85 mL Omnipaque 350 contrast. Postcontrast imaging is performed during the combined nephrogram and excretion phase. Sagittal and coronal reformatted images were obtained on the technologist's workstation for both the precontrast and postcontrast phases. This CT examination was performed using dose optimization techniques as appropriate, variously including the following: *Automated exposure control *Adjustment of mA and/or kV according to patient size (this includes techniques or standardized protocols for targeted exams where dose is matched to indication/reason for exam; i.e. extremities or head) *Use of iterative reconstruction technique DLP: 404 mGy centimeter. FINDINGS: Beam jain artifact secondary to metallic hardware from a posterior thoracolumbar fusion. LUNG BASES: No included in the [id number]. LIVER, GALLBLADDER, AND BILIARY TREE: Liver measures 16 cm. No gross enhancing mass. Gallbladder is fluid-filled nondistended. No pericholecystic fluid collection or gallbladder wall thickening. Common bile duct measures 5 mm. . PANCREAS: No peripancreatic fluid collections. No main pancreatic ductal dilatation. No gross focal mass. SPLEEN: 9 cm. No focal mass. ADRENAL GLANDS: No nodular lesions. KIDNEYS AND URETERS: No hydronephrosis or nephrolithiasis. Normal enhancement pattern of the renal parenchyma. Normal urinary excretion into the collecting system. BLADDER: No gross enhancing lesion. GASTROINTESTINAL TRACT: Abundant stool. No intestinal obstruction pattern. No pneumatosis intestinalis. No pneumoperitoneum. No ascites. No peripheral enhancing fluid collection. I do not see the appendix. No gross diverticulum, colonic. ABDOMINAL WALL: No gross umbilical hernia. LYMPH NODES: No specific prominent retroperitoneum no fully evaluated on this exam. Very little retroperitoneum and peritoneal fat. VASCULAR: No aneurysm or dissection, abdominal aorta. Calcified plaques in the abdominal aorta wall and iliac arteries. PELVIC VISCERA: Inadequate evaluation. OSSEUS STRUCTURES: Multilevel thoracolumbar spondylosis. Grade 1 anterolisthesis L5-S1 secondary to spondylolysis pars interarticularis resulting in bilateral neuroforamina stenosis. Metallic hardware from the posterior thoracolumbar fusion anchor and the L3 vertebra. Old superior endplate compression deformity at L1 and L3. No gross lytic or blastic lesions. Levoconvex curvature of the lumbar spine. [place] left femoral neck. CT/CT urogram IMPRESSION: No gross masses in the bladder. Limited evaluation of the posterior bladder /perirectal due to lack of fat. No hydronephrosis or nephrolithiasis. Electronically signed by: Biju Bender MD 06/12/2025 12:05 PM EDT
[2025-06-10] MEDS: iohexoL 350 MG/ML 100 ML INFUS..BTL IV (15:51)
== END 2025-06-10 14:40 | disposition home or self-care (01) ==
LOC: HO.CT 14:39
PROVIDERS: PCP Internal Medicine; Visit Provider Urology
DX: R31.29 Other microscopic hematuria (principal); Z85.51 Personal history of malignant neoplasm of bladder; Z72.0 Tobacco use
CPT/HCPCS: 74178; Q9967

== ENCOUNTER → 2025-06-10 14:41 | Outpatient (BNV) | payer OTHER, SELFPAY | PROVIDERS: PCP Internal Medicine; Visit Provider Radiology Diagnostic Radiology | DX: Z85.51 Personal history of malignant neoplasm of bladder (principal) | CPT/HCPCS: 74178 ==